=== PATIENT | female | born 1945 | race Caucasian/White ===

== ENCOUNTER → 2016-12-10 | Outpatient (CLI) | payer MEDICARE ==
[2016-12-10 15:27] LABS: Basophils # (A) 0.1 k/uL (0-0.2); Basophils % (A) 1 %; CH 29.7; CHCM 33.3; Eosinophils # (A) 0.3 k/uL (0-0.7); Eosinophils % (A) 3 %; HCT 40.3 % (34.0-46.0); HDW 2.46; HGB 13.2 gm/dL (11.4-16.0); Luc # (Auto) 0.09; Luc % (Auto) 1; Lymphocytes # (A) 2.5 k/uL (1.0-4.8); Lymphocytes % (A) 30 %; MCH 29.4 pg (25.0-35.0); MCHC 32.8 g/dL (31.0-37.0); MCV 89.7 fL (80.0-100.0); Monocytes # (A) 0.4 k/uL (0-1.0); Monocytes % (A) 4 %; Neutrophils # (A) 5.2 k/uL (1.3-7.7); Neutrophils % (A) 62 %; RDW 13.3 % (11.5-15.5); WBC 8.4 k/uL (3.8-10.6); WBC (Perox) 8.59
[2016-12-10 15:42] LABS: ALT 43 U/L (9-52); AST 26 U/L (14-36); Blood Urea Nitrogen 18 mg/dL (7-17); Non-African American GFR(MDRD) >60 (>60 ml/min/1.73 sqM)
[2016-12-10 16:46] LABS: Vitamin B12 923 pg/mL
== END | disposition home or self-care (01) ==
LOC: LABWHC1 14:56
PROVIDERS: ATTEND Psychiatry & Neurology Neurology
DX: R41.3 Other amnesia (principal)
CPT/HCPCS: 36415; 82565; 82607; 82746; 84450; 84460; 84520; 85025; 86618

== ENCOUNTER → 2017-01-04 | Outpatient (CLI) | payer MEDICARE ==
--- NOTE | 2017-01-04 16:48 | MR ---
EXAMINATION TYPE: MR brain wo/w con DATE OF EXAM: 01/04/2017 1:18 PM COMPARISON: NONE HISTORY: Memory loss CONTRAST: Performed utilizing 16 mL intravenous MultiHance gadolinium contrast. TECHNIQUE: Multiplanar, multiecho imaging on a 3.0 Meka magnet is performed through the brain. Stud y is performed within 24 hours of arrival to the hospital. The craniovertebral junction is normal. The pituitary is normal. The patient reported chronic subdu ral hematoma is not identified. Diffusion-weighted imaging is performed. No abnormal hyperintensity is present to suggest an acute i ntracranial infarct or acute ischemic change. There is confluent white matter hyperintensity compatible with microvascular ischemic change. This ex tends into the centrum semiovale bilaterally slightly greater on the right. Ventricles and sulci are appropriate for the patient age. No abnormal enhancement is evident. No temporal horn dilatation is evident. IMPRESSIONS: 1. Chronic appearing white matter ischemic type changes with atrophy.
== END | disposition home or self-care (01) ==
LOC: RADMRIMAIN 12:36
PROVIDERS: ATTEND Psychiatry & Neurology Neurology
DX: D43.2 Neoplasm of uncertain behavior of brain, unspecified (principal); R90.82 White matter disease, unspecified; I67.82 Cerebral ischemia; G31.9 Degenerative disease of nervous system, unspecified; I62.03 Nontraumatic chronic subdural hemorrhage
CPT/HCPCS: 70553; A9577

== ENCOUNTER 2017-04-26 14:29 | Inpatient (IN) | payer OTHER, MEDICARE ==
[2017-04-26 15:38] LABS: Glucose,Whole Blood 103 mg/dL (75-99)
--- NOTE | 2017-04-26 16:08 | XR ---
EXAMINATION TYPE: XR chest 2V DATE OF EXAM: 04/26/2017 COMPARISON: 10/13/2013 HISTORY: Shortness of breath TECHNIQUE: Frontal and lateral views of the chest are obtained. FINDINGS: Scattered senescent parenchymal changes noted. Hyperinflation compatible with COPD. No evidence for infiltrate. No evidence for atelectasis. Heart size is stable. Mediastinal structures are stable and grossly unremarkable. No evidence for hilar prominence. Degenerative changes dorsal spine. IMPRESSION: 1. No evidence for acute pulmonary disease.
[2017-04-26 16:14] LABS: Basophils # (A) 0.1 k/uL (0-0.2); Basophils % (A) 1 %; CHCM 32.8; Eosinophils # (A) 0.3 k/uL (0-0.7); Eosinophils % (A) 3 %; HCT 41.5 % (34.0-46.0); HDW 2.51; HGB 13.2 gm/dL (11.4-16.0); Luc # (Auto) 0.15; Luc % (Auto) 2; Lymphocytes # (A) 1.8 k/uL (1.0-4.8); Lymphocytes % (A) 23 %; MCH 29.3 pg (25.0-35.0); MCHC 31.9 g/dL (31.0-37.0); MCV 91.9 fL (80.0-100.0); Mean Platelet Volume 7.7; Monocytes # (A) 0.4 k/uL (0-1.0); Monocytes % (A) 6 %; Neutrophils # (A) 5.1 k/uL (1.3-7.7); Neutrophils % (A) 66 %; RBC 4.51 m/uL (3.80-5.40); RDW 13.4 % (11.5-15.5); WBC 7.7 k/uL (3.8-10.6); WBC (Perox) 7.55
[2017-04-26 16:27] LABS: ALT 35 U/L (9-52); AST 24 U/L (14-36); Alkaline Phosphatase 78 U/L (38-126); Anion Gap 10 mmol/L; Blood Urea Nitrogen 19 mg/dL (7-17); Calcium 9.8 mg/dL (8.4-10.2); Carbon Dioxide 26 mmol/L (22-30); Chloride 109 mmol/L (98-107); Glucose 100 mg/dL (74-99); Non-African American GFR(MDRD) >60 (>60 ml/min/1.73 sqM); Partial Thromboplastin Time 22.2 sec (22.0-30.0); Potassium 4.2 mmol/L (3.5-5.1); Prothrombin Time 10.3 sec (9.0-12.0); Sodium 145 mmol/L (137-145); Total Bilirubin 0.2 mg/dL (0.2-1.3); Total Protein 6.5 g/dL (6.3-8.2)
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
[2017-04-26 16:31] LABS: Appearance,Urine Clear (Clear); Bacteria,Urine Moderate /hpf; Bilirubin,Urine Negative (Negative); Glucose,Urine (UA) Negative (Negative); Ketones,Urine Negative (Negative); Leukocyte Esterase,Urine Large (Negative); Mucus,Urine Rare /hpf; Nitrite,Urine Negative (Negative); Particle Count 2384; Protein,Urine Negative (Negative); RBC,Urine 12 /hpf (0-5); Specific Gravity,Urine 1.015 (1.001-1.035); Squamous Epithelial Cell,Urine <1 /hpf (0-4); UA Billing (MACRO vs. MICRO) MICRO; Urobilinogen,Urine <2.0 mg/dL (<2.0); WBC,Urine 19 /hpf (0-5)
[2017-04-26 16:32] LABS: Creatine Kinase 174 U/L (30-135)
[2017-04-26 16:45] LABS: Creatine Kinase MB 1.7 ng/mL (0.0-2.4); Troponin I <0.012 ng/mL (0.000-0.034)
[2017-04-26] MEDS ORDERED: SODIUM CHLORIDE 0.9% 1,000 ML IV ONE (17:49)
[2017-04-26] MEDS ORDERED: DONEPEZIL 5 MG TAB PO SCH (21:00)
[2017-04-26] MEDS ORDERED: ASPIRIN 81 MG CHEW PO SCH (21:00)
[2017-04-26] MEDS ORDERED: ATORVASTATIN 10 MG TAB PO SCH (21:00)
[2017-04-27] MEDS ORDERED: LEVOTHYROXINE 75 MCG TAB PO SCH (06:30)
[2017-04-27 07:09] LABS: Basophils % (A) 0 %; CH 29.8; CHCM 32.4; Eosinophils # (A) 0.3 k/uL (0-0.7); Eosinophils % (A) 4 %; HCT 40.7 % (34.0-46.0); HDW 2.51; HGB 13.6 gm/dL (11.4-16.0); Luc # (Auto) 0.19; Luc % (Auto) 2; Lymphocytes # (A) 2.5 k/uL (1.0-4.8); Lymphocytes % (A) 31 %; MCH 30.9 pg (25.0-35.0); MCHC 33.4 g/dL (31.0-37.0); MCV 92.4 fL (80.0-100.0); Mean Platelet Volume 7.7; Monocytes # (A) 0.4 k/uL (0-1.0); Monocytes % (A) 5 %; Neutrophils # (A) 4.6 k/uL (1.3-7.7); Neutrophils % (A) 58 %; RDW 13.4 % (11.5-15.5); WBC (Perox) 8.15
[2017-04-27 10:09] VITALS: RESP 16
[2017-04-27 13:31] VITALS: BP 175/77; PULSE 88; TEMP 98.5
[2017-04-27] MEDS ORDERED: RX INFO: IV CONTRAST WAS GIVEN 1 EACH MISC MISCELLANE PRN (14:36)
--- NOTE | 2017-04-27 15:49 | CT ---
EXAMINATION TYPE: CT angio head neck DATE OF EXAM: 04/27/2017 3:29 PM COMPARISON: NONE HISTORY: Episode of visual disturbance and loss of consciousness CT DLP: 343.7 mGycm Automated exposure control for dose reduction was used. TECHNIQUE: Performed with IV Contrast, patient injected with 65 mL of Omnipaque 350. There are 3-D post processed images.. FINDINGS: There is arterial flow demonstrated in both vertebral arteries. There is normal branching pattern of the great vessels. Left vertebral artery is larger than the right. There is arterial flow in the common internal and ext ernal carotid arteries bilaterally. The right carotid artery is widely patent. On the left side there is mild plaque on the posterior wall of the proximal left internal carotid artery. There is lumen na rrowing of 20%. There is arterial flow in the anterior middle and posterior cerebral arteries bilaterally. There is a rterial flow in the vertebrobasilar artery system. There is no mass effect. There is no evidence of a neurysm or neovascularity. There is no evidence of stenosis in the intracranial circulation. There is normal contrast opacification of the venous sinuses. 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 THE REMAINDER OF THE EXAM IS WITHIN NORMAL LIMITS.
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
== END 2017-04-27 16:48 | disposition home or self-care (01) | DRG 880 ==
LOC: EC 14:29 → 6SEL 17:50
PROVIDERS: ADMIT Internal Medicine; ATTEND Internal Medicine
DX: F41.0 Panic disorder [episodic paroxysmal anxiety] (principal); I10 Essential (primary) hypertension; E03.9 Hypothyroidism, unspecified; I25.10 Atherosclerotic heart disease of native coronary artery without angina pectoris; H35.30 Unspecified macular degeneration; E78.5 Hyperlipidemia, unspecified; R51 Headache; R82.71 Bacteriuria; Z91.018 Allergy to other foods; Z79.82 Long term (current) use of aspirin; Z79.899 Other long term (current) drug therapy; Z87.891 Personal history of nicotine dependence
CPT/HCPCS: 36415; 70496; 70498; 71020; 80053; 81001; 82550; 82553; 84439; 84443; 84484; 85025; 85610; 85730; 93005; 96365; 99285

== ENCOUNTER → 2018-03-13 | Outpatient (CLI) | payer MEDICARE ==
[2018-03-13 11:54] LABS: HCT 42.1 % (34.0-46.0); HGB 13.6 gm/dL (11.4-16.0); MCH 28.7 pg (25.0-35.0); MCHC 32.4 g/dL (31.0-37.0); MCV 88.6 fL (80.0-100.0); Platelet Count 254 k/uL (150-450); RBC 4.75 m/uL (3.80-5.40); RDW 13.5 % (11.5-15.5); WBC 8.9 k/uL (3.8-10.6)
[2018-03-13 12:32] LABS: Anion Gap 14 mmol/L; Blood Urea Nitrogen 19 mg/dL (7-17); Carbon Dioxide 27 mmol/L (22-30); Chloride 104 mmol/L (98-107); Potassium 4.7 mmol/L (3.5-5.1); Sodium 145 mmol/L (137-145)
== END | disposition home or self-care (01) ==
LOC: LABPAT 11:08
PROVIDERS: ATTEND Internal Medicine Interventional Cardiology
DX: Z01.812 Encounter for preprocedural laboratory examination (principal); I25.10 Atherosclerotic heart disease of native coronary artery without angina pectoris
CPT/HCPCS: 36415; 80051; 82565; 84520; 85027

== ENCOUNTER → 2018-03-27 | Day surgery (SDC) | payer MEDICARE ==
[~2018-03-27] MED LIST: ALPRAZolam 0.25 MG TAB PO PRN; ALPRAZolam 0.5 MG TAB PO PRN; ASPIRIN 325 MG TAB PO STA; HEPARIN SODIUM 1,000 UN/ML (10ML VL) IV ONE; HEPARIN SODIUM 1,000 UN/ML (10ML VL) ONE; IOPAMIDOL-370 125ML BTL INJ ONE; LIDOCAINE 2% INJ 20 MG/ML (20 ML MDV) ONE; LIDOCAINE 2% INJ 20 MG/ML SQ ONE; MIDAZOLAM 2 MG/2 ML VIAL ONE; NITROGLYCERIN SL TABS 0.4 MG TAB SUBLINGUAL PRN; RX INFO: IV CONTRAST WAS GIVEN 1 EACH MISC MISCELLANE PRN; SODIUM CHLORIDE 0.9% 1,000 ML IV SCH; SODIUM CHLORIDE 0.9% 1,000 ML in EMPTY BAG 1 BAG IV ONE; VERAPAMIL 2.5 MG/ML 2 ML AMP ONE; fentaNYL (PF) 50 MCG/ML 2 ML AMP IV ONE
[2018-03-27 08:31] VITALS: RESP 18; TEMP 97.5
[2018-03-27] MEDS: VERAPAMIL SYRINGE (5 MG/10 ML) INTRAARTER ONE ×2 (09:03→09:16)
--- NOTE | 2018-03-27 10:58 | LTR ---
DATE OF SERVICE: 03/27/2017 RE: Marisa Banerjee Dear Cristian; Ms. Marisa Banerjee underwent a heart catheterization today for recurrent episodes of chest discomfort concerning for angina. The heart catheterization showed intermediate disease involving the mid LAD. Medical treatment is recommended at this point. I want to thank you for allowing me to participate in her care. Sincerely, MD MANUEL Zamarripa / OSMAR: [id number] /
--- NOTE | 2018-03-27 11:28 | CC ---
CARDIAC CATHETERIZATION REPORT DATE OF SERVICE: 03/27/2018 PERFORMING PHYSICIAN: Aldair Jett MD, Geriatric Social Work Professor. PROCEDURE PERFORMED: 1. Selective right and left coronary angiogram. 2. Left heart catheterization. INDICATION: This is a pleasant 72-year-old female patient who is known to have coronary artery disease based on heart catheterization a few years ago with intermediate disease involving the mid LAD, as well as hypertension and dyslipidemia, was experiencing chest discomfort, better with nitroglycerin. She underwent a stress test and that came into be unremarkable, but because she continues to have a chest discomfort, I recommended proceeding with a heart catheterization. APPROACH: Right radial artery. COMPLICATION: None. LEVEL OF SEDATION: Moderate with sedation length of 19 minutes. PROCEDURE DESCRIPTION: After obtaining an informed consent, the patient was brought to the Cardiac Web Content Writer. The right radial artery was cannulated using micropuncture technique and a micropuncture wire passed easily, then I placed a 6-Micronesian sheath in the right radial artery. I gave the patient 2 mg of verapamil IA and 8000 units of heparin IV. After that, I did selective right and left coronary angiogram using JR4 and JL3.5 catheters. We did left heart catheterization using JR4 catheter which flipped into the LV, then I did pull but pullback across aortic valve. The procedure was completed without any complication. SELECTIVE CORONARY ANGIOGRAM: 1. The right coronary artery is a large caliber vessel and it is a dominant vessel. The proximal RCA has mild disease only. The mid RCA has mild disease only as well and the RCA distally appeared to have mild disease only and bifurcates into PDA and PLV branches, both are angiographically normal. 2. The left main is angiographically normal, it bifurcates into the circumflex and left anterior descending artery. 3. The left circumflex is a large caliber vessel. It is a nondominant vessel. The proximal circ appeared to be angiographically normal, the mid circ has mild disease only and the circ distally is angiographically normal. 4. THE LAD: The proximal LAD appeared to be appeared to have mild disease only. It gives rise into a diagonal branch which has mild ostial disease. The mid LAD just by the bifurcation of second diagonal has intermediate lesion in the range of 50%. The LAD distally appeared to be angiographically normal. HEMODYNAMICS: The left ventricular end-diastolic pressure was 8 mmHg and no gradient was identified across the aortic valve. CONCLUSION: Intermediate disease involving the mid left anterior descending artery. POSTPROCEDURE MANAGEMENT: Medical treatment. MANUEL / SHELBIEN: [id number] /
[2018-03-27 15:03] VITALS: BP 151/72; PULSE 56
== END ==
LOC: CATHCVL 08:01
PROVIDERS: ATTEND Internal Medicine Interventional Cardiology
DX: I25.110 Atherosclerotic heart disease of native coronary artery with unstable angina pectoris (principal); E78.00 Pure hypercholesterolemia, unspecified; I10 Essential (primary) hypertension; E03.9 Hypothyroidism, unspecified; Z82.49 Family history of ischemic heart disease and other diseases of the circulatory system; Z79.82 Long term (current) use of aspirin; Z79.890 Hormone replacement therapy; Z79.899 Other long term (current) drug therapy; Z88.8 Allergy status to other drugs, medicaments and biological substances; Z87.891 Personal history of nicotine dependence
CPT/HCPCS: 93458; C1894; J2001; J3010; J1644; Q9967

== ENCOUNTER 2019-04-02 18:48 | Emergency (ER) | payer MEDICARE ==
[2019-04-02 19:01] VITALS: TEMP 97.9
--- NOTE | 2019-04-02 21:02 | US ---
EXAMINATION TYPE: US venous doppler duplex LE LT DATE OF EXAM: 04/02/2019 8:46 PM COMPARISON: NONE CLINICAL HISTORY: Pain. Left leg pain. SIDE PERFORMED: Left TECHNIQUE: The lower extremity deep venous system is examined utilizing real time linear array sonog lindsay with graded compression, doppler sonography and color-flow sonography. VESSELS IMAGED: External Iliac Vein (EIV) Common Femoral Vein Deep Femoral Vein Greater Saphenous Vein * Femoral Vein Popliteal Vein Small Saphenous Vein * Proximal Calf Veins (* superficial vessels) Left Leg: Negative for DVT No evidence of DVT left leg. IMPRESSION: Normal left leg duplex venous sonogram.
[2019-04-02 22:25] VITALS: BP 170/96; PULSE 105; RESP 18
--- NOTE | 2019-04-02 23:00 | ED ---
General Adult HPI - General Chief complaint: Extremity Injury, Lower Stated complaint: Leg Pain Time Seen by Provider: 04/02/19 19:33 Source: patient Mode of arrival: wheelchair Limitations: no limitations - History of Present Illness Initial comments: Patient 73-year-old female presents emergency Department with left lower leg pain. Patient states pain started yesterday and has been getting progressively worse. Patient states that she has been taking nothing for pain control. Patient states pain starts in the popliteal region and extends distally for about 15 cm along the gastrocnemius. patient states there is no pain at rest but it is exacerbated by movement. Patient denies any numbness tingling or muscle weakness. Patient denies coughing, hemoptysis, fever, night sweats, estrogen use, traveling for long periods of time. - Related Data Home Medications Medication Instructions Recorded Confirmed Aspirin EC [Ecotrin Low Dose] 81 mg PO HS 04/26/17 03/27/18 Atenolol [Tenormin] 25 mg PO BID 04/26/17 03/27/18 Donepezil [Aricept] 5 mg PO BID 04/26/17 03/27/18 Levothyroxine Sodium [Synthroid] 200 mcg PO QAM 04/26/17 03/27/18 Lovastatin [Mevacor] 20 mg PO HS 04/26/17 03/27/18 Naproxen 500 mg PO BID PRN 04/26/17 03/27/18 Nitroglycerin Sl Tabs [Nitrostat] 0.4 mg SUBLINGUAL Q5M PRN 04/26/17 03/27/18 Vit C/E/Zn/Coppr/Lutein/Zeaxan 1 cap PO BID 04/26/17 03/27/18 [Preservision Areds 2 Softgel] Calcium, D3,Mag 1 tab PO DAILY 03/21/18 03/27/18 Cyclobenzaprine [Flexeril] 10 mg PO HS PRN 03/21/18 03/27/18 Famotidine 40 mg PO QAM 03/21/18 03/27/18 Fexofenadine HCl [Nellie Allergy] 180 mg PO DAILY 03/21/18 03/27/18 Isosorbide Mononitrate ER [Imdur] 5 mg PO QAM 03/21/18 03/27/18 Melatonin 5 mg PO HS 03/21/18 03/27/18 Memantine [Namenda] 10 mg PO BID 03/21/18 03/27/18 Allergies Allergy/AdvReac Type Severity Reaction Status Date / Time perfume Allergy Swelling Verified 04/02/19 19:01 gluten AdvReac Abdominal Verified 04/02/19 19:01 Pain Review of Systems ROS Statement: Those systems with pertinent positive or pertinent negative responses have been documented in the HPI. ROS Other: All systems not noted in ROS Statement are negative. Past Medical History Past Medical History: Coronary Artery Disease (CAD), Chest Pain / Angina, Fibromyalgia, Hyperlipidemia, Hypertension, Memory Impairment, Thyroid Disorder Additional Past Medical History / Comment(s): CARDIOLOGY H & P BY DR. HIRSCH. Angina, RT EYE MACULAR DEGENERATION, OCCASSIONAL "HEARTBURN" History of Any Multi-Drug Resistant Organisms: None Reported Past Surgical History: Back Surgery, Heart Catheterization, Hysterectomy Additional Past Surgical History / Comment(s): thyroidectomy, OLIVERIO CATARACT Past Anesthesia/Blood Transfusion Reactions: No Reported Reaction Additional Past Anesthesia/Blood Transfusion Reaction / Comment(s): CLAUSTERPHOBIA Past Psychological History: No Psychological Hx Reported Smoking Status: Former smoker Past Alcohol Use History: Rare Past Drug Use History: None Reported - Past Family History Mother Family Medical History: Coronary Artery Disease (CAD) Additional Family Medical History / Comment(s): HEART PROBLEMS Father Family Medical History: Cancer Additional Family Medical History / Comment(s): LUNG CANCER General Exam Limitations: no limitations General appearance: alert, in no apparent distress Head exam: Present: atraumatic, normocephalic, normal inspection Eye exam: Present: normal appearance, PERRL, EOMI. Absent: scleral icterus, conjunctival injection ENT exam: Present: mucous membranes moist, TM's normal bilaterally, normal external ear exam. Absent: normal exam (Bilateral enlarged tonsils without exudates.) Neck exam: Present: normal inspection, lymphadenopathy Respiratory exam: Present: normal lung sounds bilaterally. Absent: wheezes, rales, rhonchi, stridor Cardiovascular Exam: Present: regular rate, normal rhythm, normal heart sounds Extremities exam: Present: normal inspection, full ROM Left Hip exam: Present: normal inspection, full ROM Upper Leg exam: Present: normal inspection, full ROM Knee exam: Present: normal inspection, full ROM Lower Leg exam: Present: full ROM, tenderness, Homans' sign. Absent: ecchymosis, erythema Ankle exam: Present: normal inspection (Limited with weightbearing), full ROM Foot/Toe exam: Present: normal inspection, full ROM Gait: observed and limited by pain Back exam: Present: normal inspection, full ROM Neurological exam: Present: alert, oriented X3 Psychiatric exam: Present: normal affect, normal mood Skin exam: Present: warm, normal color Course Vital Signs 04/02/19 04/02/19 18:59 22:24 Temperature 97.9 F Pulse Rate 63 105 H Respiratory 20 18 Rate Blood Pressure 119/71 170/96 O2 Sat by Pulse 96 98 Oximetry Medical Decision Making - Medical Decision Making Patient is 73-year-old female presenting to the emergency department with left leg pain. On physical examination patient had a positive Homans sign. Duplex ultrasound was ordered and returned unremarkable for DVT. Patient was advised to alternate between Tylenol and ibuprofen for pain. Patient advised to follow primary care. Patient advised to return to emergency department if symptoms worsen. Case discussed with physician. Disposition Clinical Impression: Leg strain Disposition: HOME SELF-CARE Condition: Stable Instructions (If sedation given, give patient instructions): Leg Sprain (ED) Is patient prescribed a controlled substance at d/c from ED?: No Referrals: Cristian Arvizu DO [Primary Care Provider] - 1-2 days Time of Disposition: 23:04
== END 2019-04-02 23:07 | disposition home or self-care (01) ==
LOC: EC 18:48
DX: S86.912A Strain of unspecified muscle(s) and tendon(s) at lower leg level, left leg, initial encounter (principal); I25.119 Atherosclerotic heart disease of native coronary artery with unspecified angina pectoris; E78.5 Hyperlipidemia, unspecified; I10 Essential (primary) hypertension; E07.9 Disorder of thyroid, unspecified; Z87.891 Personal history of nicotine dependence; Z79.890 Hormone replacement therapy; Z79.82 Long term (current) use of aspirin; Z79.899 Other long term (current) drug therapy; Z91.09 Other allergy status, other than to drugs and biological substances; Z91.018 Allergy to other foods; Z95.818 Presence of other cardiac implants and grafts
CPT/HCPCS: 99283

== ENCOUNTER → 2022-06-27 | Outpatient (CLI) | payer MEDICARE ==
--- NOTE | 2022-06-27 15:33 | CT ---
EXAMINATION TYPE: CT brain wo con DATE OF EXAM: 06/27/2022 COMPARISON: MRI brain 01/04/2017 INDICATION: Disorientation DLP: 995.5 mGycm, Automated exposure control for dose reduction was used. CONTRAST: None CT of the brain is performed utilizing 3 mm thick sections through the posterior fossa and 3 mm thick sections through the remaining calvarium. Study is performed within 24 hours of arrival to the hosp [facility]. No abnormal hyperdensity is present to suggest an acute intracranial hemorrhage. No mass lesion is evident. Physiologic basal ganglion calcifications in the left basal ganglia. No acute infarcts are evident. Periventricular white matter hypodensities present, likely on the basi s of microvascular ischemic change. Sub ependymal flow of CSF should be considered. Ventricles and sulci are prominent for the patient age. There is some rounding of the temporal horns of lateral ventricles. Lateral ventricles third ventricle appear prominent. Some early hydrocephalus could be considered. Findings are somewhat more prominent than 01/04/2017 comparison MRI. There is fluid within the inferior left mastoid air cells. Mastoid air cells appear underpneumatized. Air-fluid levels within the sphenoid sinus. Correlate for acute sphenoid sinusitis. IMPRESSIONS: 1. Prominent ventricles with some rounding of the temporal horns., Early hydrocephalus should be co nsidered. 2. Atrophy with periventricular white matter ischemic-type changes. Sub ependymal flow of CSF should be considered.
== END | disposition home or self-care (01) ==
LOC: RADCTMAIN 11:50
PROVIDERS: ATTEND Psychiatry & Neurology Neurology
DX: R41.0 Disorientation, unspecified (principal); G31.9 Degenerative disease of nervous system, unspecified
CPT/HCPCS: 70450

== ENCOUNTER 2022-10-29 14:23 | Inpatient (IN) | payer MEDICARE ==
--- NOTE | 2022-10-29 14:45 | ED ---
General Adult HPI - General Chief complaint: Fall Stated complaint: fall, hip pain Time Seen by Provider: 10/29/22 14:25 Source: EMS Mode of arrival: EMS Limitations: altered mental status - History of Present Illness Initial comments: Dictation was produced using [employer] dictation software. please excuse any grammatical, word or spelling errors. Chief Complaint: 77-year-old female presents emergency department for her fall left hip pain History of Present Illness: Is 77-year-old female she is a poor historian. She has history of Alzheimer's dementia. According to EMS patient fell approximately 30 minutes prior to arrival. She is complaining of left-sided hip pain. Patient does not remember how she fell. Fell was unwitnessed. She does live at home with her and son. The ROS documented in this emergency department record has been reviewed and confirmed by me. Those systems with pertinent positive or negative responses have been documented in the HPI. All other systems are other negative and/or noncontributory. PHYSICAL EXAM: General Impression: Alert and oriented x3, not in acute distress HEENT: Normocephalic atraumatic, extra-ocular movements intact, pupils equal and reactive to light bilaterally, mucous membranes moist. Cardiovascular: Heart regular rate and rhythm Chest: Able to complete full sentences, no retractions, no tachypnea Abdomen: abdomen soft, non-tender, non-distended, no organomegaly Musculoskeletal: Pulses present and equal in all extremities, no peripheral edema Motor: no focal deficits noted Left lower extremity a flexed and externally rotated elicited with manipulation at the left hip Neurological: CN II-XII grossly intact, no focal motor or sensory deficits noted Skin: Intact with no visualized rashes Psych: Normal affect and mood ED course: 77-year-old female presents emergency department for left hip pain. Vital signs upon arrival are within acceptable limits. Patient refused any pain medications at initial evaluation. Nursing notes and chart review was performed Laboratory evaluation obtained. CBC, coag panel, metabolic panel is unremark able. Computed tomography scan of the head and C-spine shows left middle ear effusion clinical exam findings to suggest mastoiditis. Rest of computed tomography scan unremarkable. Hip and pelvis x-ray shows left femoral neck fracture mild displacement. Chest x-ray shows pulmonary venous congestion. Patient be admitted to Dr. Powell of orthopedi surgery after discussion with attila hunter. Patient reevaluated at bedside at 5:30 PM found to be in stable medical condition. - Related Data Home Medications Medication Instructions Recorded Confirmed Aspirin EC [Ecotrin Low Dose] 81 mg PO HS 04/26/17 03/27/18 Donepezil [Aricept] 5 mg PO BID 04/26/17 03/27/18 Levothyroxine Sodium [Synthroid] 200 mcg PO QAM 04/26/17 03/27/18 Lovastatin [Mevacor] 20 mg PO HS 04/26/17 03/27/18 Naproxen 500 mg PO BID PRN 04/26/17 03/27/18 Nitroglycerin Sl Tabs [Nitrostat] 0.4 mg SUBLINGUAL Q5M PRN 04/26/17 03/27/18 Vit C/E/Zn/Coppr/Lutein/Zeaxan 1 cap PO BID 04/26/17 03/27/18 [Preservision Areds 2 Softgel] atenoloL [Tenormin] 25 mg PO BID 04/26/17 03/27/18 Calcium, D3,Mag 1 tab PO DAILY 03/21/18 03/27/18 Cyclobenzaprine [Flexeril] 10 mg PO HS PRN 03/21/18 03/27/18 Famotidine 40 mg PO QAM 03/21/18 03/27/18 Fexofenadine HCl [Nellie Allergy] 180 mg PO DAILY 03/21/18 03/27/18 Isosorbide Mononitrate ER [Imdur] 5 mg PO QAM 03/21/18 03/27/18 Melatonin 5 mg PO HS 03/21/18 03/27/18 Memantine [Namenda] 10 mg PO BID 03/21/18 03/27/18 Allergies Allergy/AdvReac Type Severity Reaction Status Date / Time perfume Allergy Swelling Verified 04/02/19 19:01 gluten AdvReac Abdominal Verified 04/02/19 19:01 Pain Review of Systems ROS Statement: Those systems with pertinent positive or pertinent negative responses have been documented in the HPI. ROS Other: All systems not noted in ROS Statement are negative. Past Medical History Past Medical History: Coronary Artery Disease (CAD), Chest Pain / Angina, Fibromyalgia, Hyperlipidemia, Hypertension, Memory Impairment, Thyroid Disorder Additional Past Medical History / Comment(s): CARDIOLOGY H & P BY DR. HIRSCH. Diana rocha, RT EYE MACULAR DEGENERATION, OCCASSIONAL "HEARTBURN" History of Any Multi-Drug Resistant Organisms: None Reported Past Surgical History: Back Surgery, Heart Catheterization, Hysterectomy Additional Past Surgical History / Comment(s): thyroidectomy, OLIVERIO CATARACT Past Anesthesia/Blood Transfusion Reactions: No Reported Reaction Additional Past Anesthesia/Blood Transfusion Reaction / Comment(s): CLAUSTERPHOBIA Past Psychological History: No Psychological Hx Reported Past Alcohol Use History: Rare Past Drug Use History: None Reported - Past Family History Mother Family Medical History: Coronary Artery Disease (CAD) Additional Family Medical History / Comment(s): HEART PROBLEMS Father Family Medical History: Cancer Additional Family Medical History / Comment(s): LUNG CANCER General Exam Limitations: altered mental status Course Vital Signs 10/29/22 10/29/22 10/29/22 14:25 14:59 15:00 Temperature 97.7 F Respiratory 16 Rate Blood Pressure 123/64 O2 Sat by Pulse 91 L 83 L 98 Oximetry Medical Decision Making - Lab Data Result diagrams: 10/29/22 14:50 10/29/22 14:50 Lab Results 10/29/22 10/29/22 10/29/22 Range/Units 14:50 14:50 16:40 WBC 12.7 H (3.8-10.6) k/uL RBC 4.77 (3.80-5.40) m/uL Hgb 14.2 (11.4-16.0) gm/dL Hct 42.5 (34.0-46.0) % MCV 89.1 (80.0-100.0) fL MCH 29.7 (25.0-35.0) pg MCHC 33.3 (31.0-37.0) g/dL RDW 13.6 (11.5-15.5) % Plt Count 235 (150-450) k/uL MPV 8.2 Neutrophils % 72 % Lymphocytes % 22 % Monocytes % 4 % Eosinophils % 1 % Basophils % 0 % Neutrophils # 9.1 H (1.3-7.7) k/uL Lymphocytes # 2.8 (1.0-4.8) k/uL Monocytes # 0.5 (0-1.0) k/uL Eosinophils # 0.1 (0-0.7) k/uL Basophils # 0.1 (0-0.2) k/uL PT 10.1 (9.0-12.0) sec INR 1.0 (<1.2) APTT 19.4 L (22.0-30.0) sec Sodium 138 (137-145) mmol/L Potassium 4.6 (3.5-5.1) mmol/L Chloride 107 (98-107) mmol/L Carbon Dioxide 24 (22-30) mmol/L Anion Gap 7 mmol/L BUN 19 H (7-17) mg/dL Creatinine 0.65 (0.52-1.04) mg/dL Est GFR (CKD-EPI)AfAm >90 (>60 ml/min/1.73 sqM) Est GFR (CKD-EPI)NonAf 87 (>60 ml/min/1.73 sqM) Glucose 112 H (74-99) mg/dL Calcium 8.8 (8.4-10.2) mg/dL Disposition Clinical Impression: Hip fracture Disposition: ADMITTED IP TO THIS [facility] Condition: Fair Referrals: Cristian Arvizu DO [Primary Care Provider] - 1-2 days Decision Time: 17:28
[2022-10-29 15:14] LABS: Basophils # (A) 0.1 k/uL (0-0.2); Basophils % (A) 0 %; Eosinophils # (A) 0.1 k/uL (0-0.7); Eosinophils % (A) 1 %; HCT 42.5 % (34.0-46.0); HGB 14.2 gm/dL (11.4-16.0); Lymphocytes # (A) 2.8 k/uL (1.0-4.8); Lymphocytes % (A) 22 %; MCH 29.7 pg (25.0-35.0); MCHC 33.3 g/dL (31.0-37.0); MCV 89.1 fL (80.0-100.0); Mean Platelet Volume 8.2; Monocytes # (A) 0.5 k/uL (0-1.0); Monocytes % (A) 4 %; Neutrophils # (A) 9.1 k/uL (1.3-7.7); Neutrophils % (A) 72 %; Platelet Count 235 k/uL (150-450); RBC 4.77 m/uL (3.80-5.40); RDW 13.6 % (11.5-15.5); WBC 12.7 k/uL (3.8-10.6)
[2022-10-29 15:24] LABS: African American GFR (CKD) >90 (>60 ml/min/1.73 sqM); Anion Gap 7 mmol/L; Blood Urea Nitrogen 19 mg/dL (7-17); Calcium 8.8 mg/dL (8.4-10.2); Carbon Dioxide 24 mmol/L (22-30); Chloride 107 mmol/L (98-107); Glucose 112 mg/dL (74-99); Non-African American GFR(CKD) 87 (>60 ml/min/1.73 sqM); Potassium 4.6 mmol/L (3.5-5.1); Sodium 138 mmol/L (137-145)
--- NOTE | 2022-10-29 15:44 | XR ---
EXAMINATION TYPE: XR chest 1V portable DATE OF EXAM: 10/29/2022 HISTORY: Shortness of breath. COMPARISON: 04/26/2017 TECHNIQUE: Single view of the chest is submitted. FINDINGS: Demonstrated are scattered senescent parenchymal change. There is pulmonary venous congestion with cardiomegaly. Scattered areas of linear atelectasis. Hilar and mediastinal structures are within normal limits. Degenerative changes are seen of the dorsal spine. IMPRESSION: 1. There is pulmonary venous congestion with cardiomegaly. Scattered areas of linear atelectasis.
--- NOTE | 2022-10-29 15:45 | XR ---
EXAMINATION TYPE: XR Hip LT and AP Pelvis DATE OF EXAM: 10/29/2022 CLINICAL HISTORY: pain TECHNIQUE: AP and frogleg views of the left hip are obtained. COMPARISON: None. FINDINGS: There is a mildly displaced femoral neck fracture. No additional fractures seen within the [id number]. The joint space appears within normal limits. The overlying soft tissue appears unre markable. IMPRESSION: 1. Left femoral neck fracture
--- NOTE | 2022-10-29 16:17 | CT ---
EXAMINATION TYPE: CT brain cspine wo con CT DLP: 1392 mGycm, Automated exposure control for dose reduction was used. DATE OF EXAM: 10/29/2022 4:11 PM COMPARISON: 06/27/2022 CLINICAL INDICATION:Female, 77 years old with history of fall; TECHNIQUE: Brain: Multiple axial CT images of the brain were obtained without IV contrast. Cspine: Axial CT images from the skull base to the inferior aspect of T2 we obtained without intraven ous contrast. Coronal and sagittal reformatted images were also reviewed. FINDINGS: Brain: Extra-axial spaces: No abnormal extra-axial fluid collections. Ventricular system: Dilatation in proportion to cerebral atrophy. Cerebral parenchyma: Cerebral atrophy. No acute intraparenchymal hemorrhage or mass effect. The guzman -white junction is well differentiated. Scattered hypoattenuating areas are seen within the white mat ter. Cerebellum: Unremarkable. Mass effect: No evidence of midline shift. Intracranial vasculature: Atherosclerotic calcifications of the intracranial vessels. Soft tissues: Normal. Calvarium/osseous structures: No depressed skull fracture. Paranasal sinuses and mastoid air cells: The left middle ear and mastoid air cells are opacified. Visualized orbits: Bilateral aphakia Cervical spine: Fracture: None. Osseous structures: Multilevel degenerative disc disease changes with endplate spurring and disc oste ophyte complex's. Vertebral alignment: Within normal limits. Spinal canal/Neural Foramina: No evidence of significant spinal canal narrowing. No evidence for sign ificant neural foraminal stenosis. Neck soft tissues: Prevertebral soft tissues are within normal limits. Other: The airway is patent. The lung apices are clear. IMPRESSION: 1. No acute intracranial process. 2. Left middle ear effusion and mastoid air cell effusion slightly increased from 06/27/2022. Correlat e for otomastoiditis. 3. No evidence of cervical spine fracture. 4. Mild multilevel degenerative disc disease.
[2022-10-29 17:17] LABS: Prothrombin Time 10.1 sec (9.0-12.0)
[2022-10-29 17:24] LABS: Partial Thromboplastin Time 19.4 sec (22.0-30.0)
[2022-10-29] MEDS ORDERED: NALOXONE 0.4 MG/ML 1 ML VIAL IV PRN (17:28)
[2022-10-29] MEDS: SODIUM CHLORIDE 0.9% 1,000 ML IV SCH (18:32)
--- NOTE | 2022-10-29 20:45 | XR ---
EXAMINATION TYPE: XR femur LT DATE OF EXAM: 10/29/2022 COMPARISON: NONE HISTORY: Pain TECHNIQUE: 4 views FINDINGS: There is an acute impacted subcapital fracture of the left femur. No dislocation. The knee joint is intact. The joint spaces are fairly normal. IMPRESSION: Acute impacted subcapital fracture left femur.
[2022-10-29] MEDS ORDERED: HYDROmorphone 0.5 MG/0.5 ML SYRINGE IVP PRN (21:46)
[2022-10-29] MEDS ORDERED: traMADol 50 MG TAB PO PRN (21:46)
[2022-10-29] MEDS: HYDROcodone/APAP 5-325MG 1 EACH TAB PO PRN (22:49)
[2022-10-29] MEDS ORDERED: NAPROXEN 250 MG TAB PO PRN (23:00)
[2022-10-30] MEDS: SODIUM CHLORIDE 0.9% 1,000 ML IV SCH ×3 (02:16→16:41)
[2022-10-30] MEDS: LEVOTHYROXINE 100 MCG TAB PO SCH (06:20)
--- NOTE | 2022-10-30 07:44 | P.HPOR ---
History of Present Illness H&P Date: 10/30/22 Chief Complaint: Left hip pain Pt s/e. She is 77 yo female AOX1 with c/o fall from standing. She has Left hip pain. She was brought by her to ED for eval. He is reachable by phone. No other injuries. She does not c/o pain in her UE or LE other than hip. Denies any JORGENSEN. Cannot speak on the fall. Review of Systems All systems: negative Past Medical History Past Medical History: Coronary Artery Disease (CAD), Chest Pain / Angina, Fibromyalgia, Hyperlipidemia, Hypertension, Memory Impairment, Thyroid Disorder Additional Past Medical History / Comment(s): CARDIOLOGY H & P BY DR. HIRSCH. Angina, RT EYE MACULAR DEGENERATION, OCCASSIONAL "HEARTBURN" History of Any Multi-Drug Resistant Organisms: None Reported Past Surgical History: Back Surgery, Heart Catheterization, Hysterectomy Additional Past Surgical History / Comment(s): thyroidectomy, OLIVERIO CATARACT Past Anesthesia/Blood Transfusion Reactions: No Reported Reaction Additional Past Anesthesia/Blood Transfusion Reaction / Comment(s): CLAUSTERPHOBIA Past Psychological History: No Psychological Hx Reported Additional Psychological History / Comment(s): MEMORY LOSS Smoking Status: Former smoker Past Alcohol Use History: Rare Additional Past Alcohol Use History / Comment(s): STARTED SMOKING AT AGE 20 SMOKED 1 PPD-QUIT 2001 Past Drug Use History: None Reported - Past Family History Mother Family Medical History: Coronary Artery Disease (CAD) Additional Family Medical History / Comment(s): HEART PROBLEMS Father Family Medical History: Cancer Additional Family Medical History / Comment(s): LUNG CANCER Medications and Allergies Home Medications Medication Instructions Recorded Confirmed Type Aspirin EC [Ecotrin Low Dose] 81 mg PO DAILY 04/26/17 10/29/22 History Naproxen 500 mg PO BID PRN 04/26/17 10/29/22 History Nitroglycerin Sl Tabs [Nitrostat] 0.4 mg SL Q5M PRN 04/26/17 10/29/22 History Vit C/E/Zn/Coppr/Lutein/Zeaxan 1 cap PO BID 04/26/17 10/29/22 History [Preservision Areds 2 Softgel] atenoloL [Tenormin] 25 mg PO DAILY 04/26/17 10/29/22 History Famotidine 40 mg PO DAILY 03/21/18 10/29/22 History Fexofenadine HCl [Nellie Allergy] 180 mg PO DAILY 03/21/18 10/29/22 History Memantine [Namenda] 10 mg PO BID 03/21/18 10/29/22 History Calcium Carb/Magnesium Hydrox 1 - 2 tab PO DAILY PRN 10/29/22 10/29/22 History [Rolaids Ultra 1000-200 mg Chew] Calcium Citrate/Vitamin D3 1 tab PO DAILY 10/29/22 10/29/22 History [Citracal + D Maximum Caplet] Donepezil [Aricept] 10 mg PO DAILY 10/29/22 10/29/22 History Isosorbide Mononitrate ER [Imdur] 15 mg PO DAILY 10/29/22 10/29/22 History Levothyroxine Sodium [Synthroid] 200 mcg PO DAILY 10/29/22 10/29/22 History Magnesium Oxide [Magnesium] 500 mg PO DAILY 10/29/22 10/29/22 History Rosuvastatin [Crestor] 10 mg PO DAILY 10/29/22 10/29/22 History Allergies Allergy/AdvReac Type Severity Reaction Status Date / Time perfume Allergy Anaphylaxis Verified 10/29/22 17:53 gluten AdvReac Abdominal Verified 10/29/22 17:53 Pain Physical Examination Osteopathic Statement: *. No significant issues noted on an osteopathic structural exam other than those noted in the History and Physical/Consult. Physical Exam: -Patient is alert and oriented 1 appears well-nourished well-hydrated is in no acute distress. They do not appear septic. -There is TTP left hip -Upper extremities show [5] out of 5 strength in all major muscle groups. [##EXCEPT] -Lower extremities with [5] out of 5 strength in all major muscle groups left l eg and hip secondary to fracture good dorsal flexion plantarflexion -There is [FROM] that is [painless] of the b/l UE and LE in all major joints. pain with logroll left hip -They are intact to light touch sensation in C5 to T1 and L2 to S1 nerve distribution. -DTR [2]/4 all upper and lower extremities -Patient has palpable distal pulses all 4 ext -Compartments are soft and compressible. -Patient shows a negative Ortiz's [-Neg Hoffmans b/l] [-Neg Clonus b/l] [-Neg babinski b/l] Cranial nerves II through XII are grossly intact. Results x-rays of the hip and pelvis demonstrate a left femoral neck fracture subcapital complete displaced. Pelvis is congruent without fracture. - Labs Labs: Abnormal Lab Results - Last 24 Hours (Table) 10/29/22 10/29/22 10/29/22 Range/Units 14:50 14:50 16:40 WBC 12.7 H (3.8-10.6) k/uL Neutrophils # 9.1 H (1.3-7.7) k/uL APTT 19.4 L (22.0-30.0) sec BUN 19 H (7-17) mg/dL Glucose 112 H (74-99) mg/dL H & H 10/29/22 Range/Units 14:50 Hgb 14.2 (11.4-16.0) gm/dL Hct 42.5 (34.0-46.0) % Coagulation 10/29/22 Range/Units 16:40 INR 1.0 (<1.2) Result Diagrams: 10/29/22 14:50 10/29/22 14:50 Assessment and Plan Assessment: 77-year-old female fall from standing left femoral neck fracture baseline dementia Plan: Orthopedic Surgery Risk Review Marisa is a 77-year-old female presenting for evaluation of sudden onset left hip pain, inability to ambulate after . From standing. It was my pleasure to have seen and examined [patient]. In our visit today we have had a chance to go over subjective complaints, physical examination findings and treatments including the natural course his tory without intervention and various interventional options. her imaging demonstrates left femoral neck fracture completely displaced. On physical exam, Marisademonstrates pain with motion of left lower extremity, which is NV intact at this time. I have explained to the patient that this fracture needs stabilization. Based on the patients imaging, physical exam, and the rapid progression and disabling nature of her symptoms, at this time I recommend surgery in the form or a: left hip hemiarthroplasty I discussed the risk and benefits of this procedure at length with the patient's is use her DP over. Questions were invited and answered, and the patient wishes to proceed as outlined below. Currently, I am recommendin. left hip hemiarthroplasty 2. Review of surgical risks and benefits as well as an educational packet on the proposed surgical procedure. Risks: All surgical procedures come with inherent risks, including those related to positioning, anesthesia, intraoperative findings, and postoperative complications. It is important to understand that surgery does not come with any guarantee of a successful outcome as complications and adverse events are always possible. The patient was given a handout discussing the surgical procedure and risks associated with the intervention, both of which were discussed with the patient. These risks include but are not limited to the following: - Experiencing same, different or even worse symptoms compared to before surgery. - Requiring further surgery or other forms of treatment presently or at some time in the future . - On an extreme but fortunately relatively rare basis severe complication such as blindness, stroke, heart attack, temporary and/or permanent nerve injury, paralysis, coma, or may occur, sometimes without known explanation. - Surgical complications may include but are not limited to risk of infection, fluid accumulation in the surgical dissection site, including a seroma or hematoma, that requires additional surgery, wound drainage, bleeding, new numbness or weakness, vision changes/loss, spinal fluid leakage, non-healing and/or infected incision, headaches, difficulty or inability to swallow, hoarseness, hemopneumothorax, pneumothorax, injury to nerves, spinal cord, blood vessels, lymphatics or other vital organs (i.e., bowel injury, injury to the great vessels); heterotopic bone formation; complications related to the hardware such as screws, rods, including misplaced hardware, device failure, hardware fracture/breakage, or hardware loosening; retained surgical instrumentations or devices and the need for further surgery. - Medical risks of the planned surgery include but are not limited to generalized Infections to the whole body or local areas outside of the surgical site (sepsis), heart attack, bleeding, anaphylaxis, meningitis, seizure, epilepsy, hearing loss, burn pang, laceration of the head or other areas of the body, bruising, hypersensitivity of the skin, bladder over distension; allergic reaction; shoulder injury related to positioning; fat, blood and air clots to other areas of the body like heart, lungs, brain; failure of internal organs such as lungs, kidneys, liver and excessive bleeding. If blood transfusions are necessary, note that transfusions may cause intolerance reactions such as anaphylaxis or other complex reactions. Despite best efforts, the results of surgery might not heal in terms of bone, soft tissues such as skin, fascia, ligaments, and joints. [facility] has multiple operating rooms with single and overlapping rooms running daily. They currently function under the required guidelines as produced by the [facility] Finance Committee with regards to the overlapping rooms and will continue to comply with changes to this policy as they occur. The requirements include and are complied with as follows: (1) the critical portions of the overlapping rooms will not occur at the same time, (2) the attending physician will be physically present during the critical portions of the procedure and immediately available during the entire case, and (3) a back-up attending is designated should the primary attending not be immediately available. The patient has had a chance to review all the listed information, has been given print outs detailing this information, and has had all his/her questions answered to their satisfaction. It was my pleasure to have seen and examined Marisa. In our visit today we have had a chance to go over my understanding of our patient's current condition, the natural course history without intervention and various interventional options. Questions were invited and answered, and the patient wishes to proceed as outlined above. I have seen and examined the patient for 25 minutes and we have spent more than 50% of the time in repeat and detailed counseling about the patient's condition, its natural course history with out and as much as can be predicted with surgery and re-review of various surgical treatment options. In conclusion, Marisa's requested we proceed with the above suggested surgery and are willing to accept risks and limitations of the suggested surgery as nature of the disease process and our best attempts at treatment for the condition. Thank you again for allowing us to be part of your patient's care. Please don't hesitate to contact me if you have any further questions. Signed and authenticated by: Mark Powell DO [facility] [place] [address], [address] [address]
[2022-10-30] MEDS: FAMOTIDINE 20 MG TAB PO SCH (08:59)
[2022-10-30] MEDS: ATORVASTATIN 20 MG TAB PO SCH (08:59)
[2022-10-30] MEDS: DONEPEZIL 10 MG TAB PO SCH (08:59)
[2022-10-30] MEDS: MAGNESIUM OXIDE 400 MG TAB PO SCH (09:00)
[2022-10-30] MEDS: ISOSORBIDE MONONITRATE ER 30 MG TAB.ER.24H PO SCH (09:00)
[2022-10-30] MEDS: MEMANTINE 10 MG TAB PO SCH ×2 (09:00→22:00)
[2022-10-30] MEDS: atenoloL 25 MG TAB PO SCH (09:03)
[2022-10-30] MEDS ORDERED: IV FLUID CONTINUATION 1,000 ML IV ONE (12:52)
[2022-10-30] MEDS ORDERED: ONDANSETRON 4 MG/2 ML VIAL ONE (13:02)
[2022-10-30 13:08] LABS: Glucose,Whole Blood 120 mg/dL (70-110)
[2022-10-30] MEDS ORDERED: DEXAMETHASONE SOD PHOSPHATE 4 MG/ML 1 ML VIAL IVP ONE (13:10)
[2022-10-30] MEDS ORDERED: ONDANSETRON 4 MG/2 ML VIAL IVP ONE (13:10)
[2022-10-30] MEDS ORDERED: TRANEXAMIC ACID 1,000 MG in SODIUM CHLORIDE 0.9% 100 ML IVPB ONE ×2 (13:32→13:35)
[2022-10-30] MEDS ORDERED: TRANEXAMIC ACID IN NACL,ISO-OS 1,000 MG/100 ML BAG ONE (13:43)
[2022-10-30] MEDS ORDERED: SODIUM CHLORIDE 0.9% 100 ML BAG ONE (13:43)
[2022-10-30] MEDS ORDERED: ceFAZolin 1,000 MG VIAL ONE (13:43)
[2022-10-30] MEDS ORDERED: KETAMINE 10 MG/ML 20 ML VIAL ONE (13:43)
[2022-10-30] MEDS ORDERED: ePHEDrine 50 MG/ML 1 ML VIAL ONE (13:43)
[2022-10-30] MEDS ORDERED: PROPOFOL 10 MG/ML 20 ML VIAL IV ONE (13:43)
[2022-10-30] MEDS ORDERED: IPRATROPIUM-ALBUTEROL 3 ML NEB INHALATION PRN (14:13)
--- NOTE | 2022-10-30 14:19 | P.CONS ---
History of Present Illness - Reason for Consult Consult date: 10/30/22 Medical management hypertension, hypothyroidism Requesting physician: Mark Powell - History of Present Illness (77-year-old female with past medical history of Alzheimer's dementia, CAD , hypertension, hyperlipidemia, hypothyroidism, former nicotine dependence, fibromyalgia and multiple other medical issues admitted with left femoral neck fracture status post fall. reported she fell while transferring, landing on her left hip. No head trauma, no syncope. CT reported no acute int racranial process, no evidence of C-spine fracture, mild multilevel degenerative disc disease. Denies chest pain, palpitations or shortness of breath. EKG reporting normal sinus rhythm. Radiology studies reported Left femoral neck fracture subcapital complete displaced, pelvis congruent without fracture as per orthopedic surgery review. Afebrile, WBC 12.7, hemoglobin 14.2, platelets 235, INR 1, BUN 19, creatinine 0.65. Scheduled for surgical repair today. Pain controlled at rest. Review of Systems Review systems unable to perform at this time, as patient is alert to person only, drowsy -pain medication recently administered. Past Medical History Past Medical History: Coronary Artery Disease (CAD), Chest Pain / Angina, Fibromyalgia, Hyperlipidemia, Hypertension, Memory Impairment, Thyroid Disorder Additional Past Medical History / Comment(s): CARDIOLOGY H & P BY DR. HIRSCH. Angina, RT EYE MACULAR DEGENERATION, OCCASSIONAL "HEARTBURN" History of Any Multi-Drug Resistant Organisms: None Reported Past Surgical History: Back Surgery, Heart Catheterization, Hysterectomy Additional Past Surgical History / Comment(s): thyroidectomy, OLIVERIO CATARACT Past Anesthesia/Blood Transfusion Reactions: No Reported Reaction Additional Past Anesthesia/Blood Transfusion Reaction / Comm: CLAUSTERPHOBIA Past Psychological History: No Psychological Hx Reported Additional Psychological History / Comment(s): MEMORY LOSS Smoking Status: Former smoker Past Alcohol Use History: Rare Additional Past Alcohol Use History / Comment(s): STARTED SMOKING AT AGE 20 SMOKED 1 PPD-QUIT 2001 Past Drug Use History: None Reported - Past Family History Mother Family Medical History: Coronary Artery Disease (CAD) Additional Family Medical History / Comment(s): HEART PROBLEMS Father Family Medical History: Cancer Additional Family Medical History / Comment(s): LUNG CANCER Medications and Allergies Home Medications Medication Instructions Recorded Confirmed Type Aspirin EC [Ecotrin Low Dose] 81 mg PO DAILY 04/26/17 10/29/22 History Naproxen 500 mg PO BID PRN 04/26/17 10/29/22 History Nitroglycerin Sl Tabs [Nitrostat] 0.4 mg SL Q5M PRN 04/26/17 10/29/22 History Vit C/E/Zn/Coppr/Lutein/Zeaxan 1 cap PO BID 04/26/17 10/29/22 History [Preservision Areds 2 Softgel] atenoloL [Tenormin] 25 mg PO DAILY 04/26/17 10/29/22 History Famotidine 40 mg PO DAILY 03/21/18 10/29/22 History Fexofenadine HCl [Nellie Allergy] 180 mg PO DAILY 03/21/18 10/29/22 History Memantine [Namenda] 10 mg PO BID 03/21/18 10/29/22 History Calcium Carb/Magnesium Hydrox 1 - 2 tab PO DAILY PRN 10/29/22 10/29/22 History [Rolaids Ultra 1000-200 mg Chew] Calcium Citrate/Vitamin D3 1 tab PO DAILY 10/29/22 10/29/22 History [Citracal + D Maximum Caplet] Donepezil [Aricept] 10 mg PO DAILY 10/29/22 10/29/22 History Isosorbide Mononitrate ER [Imdur] 15 mg PO DAILY 10/29/22 10/29/22 History Levothyroxine Sodium [Synthroid] 200 mcg PO DAILY 10/29/22 10/29/22 History Magnesium Oxide [Magnesium] 500 mg PO DAILY 10/29/22 10/29/22 History Rosuvastatin [Crestor] 10 mg PO DAILY 10/29/22 10/29/22 History Allergies Allergy/AdvReac Type Severity Reaction Status Date / Time perfume Allergy Anaphylaxis Verified 10/30/22 12:53 gluten AdvReac Abdominal Verified 10/30/22 12:53 Pain Physical Exam Vitals: Vital Signs Temp Pulse Pulse Resp BP BP Pulse Ox 10/30/22 07:39 98.0 F 76 17 130/73 10/30/22 02:00 97.3 F L 84 17 135/80 97 10/29/22 20:00 97.3 F L 78 19 152/94 95 10/29/22 18:33 72 16 136/71 96 10/29/22 15:00 98 12/05/22 14:59 83 L 10/29/22 14:25 97.7 F 16 123/64 91 L Intake and Output 10/29/22 10/30/22 10/30/22 22:59 06:59 14:59 Output Total 1100 Balance -1100 Output: Urine 1100 Other: Voiding Method Indwelling Catheter Indwelling Catheter Weight 81.647 kg PHYSICAL EXAM: VITAL SIGNS: [As above] GENERAL: Alert and oriented 1 ,Sitting up in bed, pleasantly confused,drowsy HEENT: Conjunctivae normal. eyes normal. NECK: Supple, No JVD. No thyroid enlargement. No LNs CARDIOVASCULAR: S1, S2 regular.. No murmur RESPIRATION: Breath sounds diminished in the bases. No rhonchi or crackles. No bronchial breathing. ABDOMEN: Soft, nontender . No guarding. no masses palpable. No ascites, No hepatosplenomegaly.Bowel sounds heard. LEGS: Left lower extremity externally rotated, mild edema NERVOUS SYSTEM: Limited Exam: Cranial N 2-12 grossly normal. Skin: Warm and dry ,no rash Results CBC & Chem 7: 10/29/22 14:50 10/29/22 14:50 Labs: Abnormal Lab Results - Last 24 Hours (Table) 10/29/22 10/29/22 10/29/22 Range/Units 14:50 14:50 16:40 WBC 12.7 H (3.8-10.6) k/uL Neutrophils # 9.1 H (1.3-7.7) k/uL APTT 19.4 L (22.0-30.0) sec BUN 19 H (7-17) mg/dL Glucose 112 H (74-99) mg/dL Assessment and Plan Assessment: Left hip fracture status post fall Atelectasis Acute hypoxic respiratory failure secondary to the above Prior nicotine dependence CAD Hypertension Dyslipidemia Macular degeneration Hypothyroidism Plan: Continue on current medication regime ,monitoring and symptomatic treatment. Aggressive pulmonary toileting with incentive spirometer ordered. PPI ordered for GI prophylaxis. Home meds have been reviewed and resumed accord ingly. Patient does present with significant risks related to multiple comorbidities, has been medically cleared by PCP for surgery. Thank you for the consult. The impression and plan of care has been dictated as directed. : I performed a history and examination of this patient, discussed the same with the dictator. I agree with the dictator's note ,documented as a scribe. Any additional findings or plans will be noted.
[2022-10-30] MEDS ORDERED: LACTATED RINGERS 1,000 ML IV ONE ×2 (14:42→15:00)
--- NOTE | 2022-10-30 15:40 | P.OP ---
Date of Procedure: 10/30/22 Preoperative Diagnosis: 1. Left femoral neck fracture, complete, displaced 2. s/p ffs 3. Alzheimer's dementia Postoperative Diagnosis: 1. Left femoral neck fracture, complete, displaced 2. s/p ffs 3. Alzheimer's dementia Procedure(s) Performed: 1. Lt hip hemiarthroplasty (78199) Implants: [employer] Polar Stem Femur size 5 collar, standard neck 47 BP head, 0 head Anesthesia: GETA Surgeon: Mark Powell Laboratory Cureman #1: Jaswant Cobos (was present and assisted with all aspects of the case from positioning to closure) Estimated Blood Loss (ml): 100 IV fluids (ml): 500 Urine output (ml): 200 Pathology: none sent Condition: stable Disposition: PACU Indications for Procedure: Marisa is a 77-year-old female presenting for evaluation of sudden onset left hip pain, inability to ambulate after . From standing. It was my pleasure to have seen and examined [patient]. In our visit today we have had a chance to go over subjective complaints, physical examination findings and treatments including the natural course history without intervention and various interventional options. her imaging demonstrates left femoral neck fracture completely displaced. On physical exam, Marisademonstrates pain with motion of left lower extremity, which is NV intact at this time. I have explained to the patient that this fracture needs stabilization. Based on the patients imaging, physical exam, and the rapid progression and disabling nature of her symptoms, at this time I recommend surgery in the form or a: left hip hemiarthroplasty I discussed the risk and benefits of this procedure at length with the patient's is use her DP over. Questions were invited and answered, and the patient wishes to proceed as outlined below. Currently, I am recommendin. left hip hemiarthroplasty Description of Procedure: The patient was seen and examined in the preoperative area. All preoperative protocols were followed. Informed consent was obtained risks and benefits of the procedure were discussed at length. Risks including bleeding infection damage to the surrounding tissue and risk of reoperation were discussed with the patient. Risk of anesthesia up to and including was a discussed with the patient. These are outlined in the risk reviewed. They were willing to accept these risks and all of the risks of surgery. The patient was given a weight- based dose of antibiotics in the form of 2 g Ancef. The patient was seen and evaluated by the anesthesia team who deemed them fit for surgery. The site was marked, the patient was willing to proceed with the procedure. The patient was transferred to the operative suite by the Department of osei diamond. There were then drifted off to sleep by the department of anesthesia and spinal with sedation anesthesia was used. Once adequate anesthesia had been obtained the patient was carefully transferred to the operative bed. All bony prominences were padded accordingly. SCDs were placed on the nonoperative lower extremities. Arms were well padded. patient was placed lateral decubitus on a pegboard table secured to the table to safety strap. Preoperative briefing was done with the operative team and everyone was ready for the procedure to start. The patients Left lower extremity was then prepped and draped in the normal sterile fashion. Timeout was then performed and all parties in agreement with the procedure to be performed. skin incision was then made for standard posterior approach to the left hip dissection taken down to the tensor fascia was identified which was split in line with its fibers. Charnley retractor was placed. Then identified short external rotators were removed and taken down the piriformis was tagged and taken down. We then performed an L cut in the capsule to expose the femoral neck and the fracture. Clinical cut was made in the femoral neck using a saw. The corkscrews and placed in the femoral head was removed. It was sized and placed a 47 trial in the acetabulum and had good fit. Then clean the acetabulum irrigated and removed any other bone fragments from the area. With internal rotation of the femur box osteotome was used to access the femoral canal followed by canal finder. We then sequentially broached and lateralized until a 5 stem was achieved and was stable and trialed this with a standard neck and 0 head there was good fit stable range of motion and equal leg lengths. The hip was then atraumatically dislocated the trials were removed we copiously irrigated wound with normal sterile saline and Aricept. The final implants were selected the femoral stem was impacted into position and was stable with an cleaned the trunnion placed the bipolar head and impacted into place and it was stable. We then relocated the hip taken through a range of motion and there was stable in all range of motion. Leg lengths are equal. The cup was irrigated wound once again posterior capsule closure was performed piriformis was attached to the posterior piriform Through the bone with Ethibond stitch was then Ethibond sutures oversewn to The Posterior External Rotators. We Then Closed the Tensor Fascia with #1 Vicryl in Running Fashion. 0 Vicryl Was Placed in the Deep Subcu Tissue 2-0 Vicryl Placed the Superficial Subcu Tissue 3-0 Monocryl Strata Fix Was Placed in the Subcuticular Tissue the Wound Was Then Cleaned with Alcohol and Dried and Mesh Tape with Glue Was Placed over It Is Allowed to Dry and Then It Was Covered with an Operative Foam Dressing. The Patient Was Placed in an Abduction Pillow. The patient was then transferred back to their hospital bed. There were awakened by department of anesthesia having tolerated the procedure very well with no complications. The patient was then transported to the postoperative care unit in stable condition.
[2022-10-30] MEDS ORDERED: MAGNESIUM HYDROXIDE 2,400 MG/10 ML CUP PO PRN (15:47)
[2022-10-30] MEDS ORDERED: ONDANSETRON 4 MG/2 ML VIAL IVP PRN (15:47)
--- NOTE | 2022-10-30 16:12 | XR ---
EXAMINATION TYPE: XR Hip Limited LT DATE OF EXAM: 10/30/2022 4:04 PM INDICATION: Patient age:Female; 77 years old; Reason for study: post-op; H. COMPARISON: Left femur 10/29/2022. TECHNIQUE: The left hip was examined in frontal projection. FINDINGS: Postsurgical changes from left total hip arthroplasty for previously seen proximal left fem ur fracture. Hardware appears intact and vertebral alignment. No fracture identified. There is associ ated soft tissue edema and gas. IMPRESSION: Postsurgical changes from left total hip arthroplasty. Hardware appears intact with appropriate align ment.
[2022-10-30] MEDS: IPRATROPIUM-ALBUTEROL 3 ML NEB INHALATION SCH ×2 (16:20→20:50)
[2022-10-30] MEDS: PANTOPRAZOLE 40 MG/10 ML VIAL IVP SCH (16:27)
[2022-10-30] MEDS: HYDROcodone/APAP 5-325MG 1 EACH TAB PO PRN (21:59)
[2022-10-30] MEDS: SENNOSIDES-DOCUSATE SODIUM 1 EACH TAB PO SCH (22:00)
[2022-10-31] MEDS: LEVOTHYROXINE 100 MCG TAB PO SCH (06:28)
--- NOTE | 2022-10-31 08:16 | P.PN ---
Subjective Progress Note Date: 10/31/22 Principal diagnosis: Fall from standing with trauma Left hip pain Patient seen and examined at bedside. Patient is currently resting in bed, A- frame pillow is present to maintain hip precautions. Surgical dressing is clean dry and intact to the right hip. Patient is able to perform ankle pumps without difficulty. Encouraged use of incentive spirometer at bedside. She does have history of dementia, and is unable to answer questions at times. Patient has remained afebrile, no complaints of nausea/vomiting, or chest pain. Objective - Vital Signs Vital signs: Vital Signs Temp 99.0 F 10/31/22 07:30 Pulse 75 10/31/22 07:30 Resp 13 10/31/22 07:30 BP 139/76 10/31/22 07:30 Pulse Ox 91 L 10/31/22 07:30 FiO2 Intake & Output 10/30/22 10/31/22 10/31/22 18:59 06:59 18:59 Intake Total 1500 Output Total 1050 750 Balance 450 -750 Intake: IV 1500 Output: Urine 950 750 Estimated Blood Loss 100 Other: Voiding Method Indwelling Catheter Indwelling Catheter - Exam Physical Examination General: The patient is awake and alert, in no acute distress Skin: Skin is warm and dry with no obvious rashes or lesions. Hairy patches absent, no dorsal skin dimples, no cafe au lait spots. Surgical incision to right hip is CDI, no shadowing noted. Eye: Pupils are equal, round and reactive to light, extra-ocular movements are intact; there is normal conjunctiva bilaterally. Neck: The neck is supple, there is no tenderness and ROM intact. Cardiovascular: There is a regular rate and rhythm. No murmur, rub or gallop is appreciated. Respiratory: Lungs are clear to auscultation, respirations are non-labored, breath sounds are equal. Gastrointestinal: Soft, non-distended, non-tender abdomen. Musculoskeletal: ROM limited secondary to pain and stiffness from surgical procedure. Muscle strength in all major muscle groups of bilateral upper extremities 4/5, bilateral lower extremities 4/5. Neurological: CN 2-12 intact. There are no obvious motor or sensory deficits. Movement and coordination equal and intact. Sensory exam to light touch intact C5-T1 and intact from L2-S1. Reflexes 2/4 in bilateral upper and lower extremities. Negative Hoffmans, babinski, and clonus signs. Psychiatric: Cooperative, appropriate mood & affect, normal judgment. - Labs CBC & Chem 7: 10/29/22 14:50 10/29/22 14:50 Labs: Abnormal Lab Results - Last 24 Hours (Table) 10/30/22 Range/Units 13:05 POC Glucose (mg/dL) 120 H (70-110) mg/dL Assessment and Plan Assessment: Left femoral neck fracture subcapital complete displaced Post Op Day 1: Left Total Hip Arthroplasty Plan: -Appreciate surgical product sales consultant and team management. -Activity: Ambulate QID, OOB all meals, up and about, limit lifting bending twisting to less than 5 lbs. Use walker or cane if needed for stability. -Daily PT/OT, increase ambulation strength and balance. -Pain control: Adequate at this time -Meds: reviewed -GI ppx: senna, Miralax -DC tyler when up and about, bedside commode if needed -DVT PPX: Lovenox -Hygiene: Shower today. Maintain dressing clean and dry. -Encourage IS 10x/hr -Dispo: Anticipate discharge home with homecare *I reviewed and discussed this case with my attending Dr. Powell, whom has reviewed this chart and films and is in agreement with assessment and plan of care as outlined above. I have personally seen and examined the patient, performed the documentation and the assessment and plan as written. Number of minutes spent on the visit: 15m.
[2022-10-31] MEDS: ENOXAPARIN 40 MG/0.4 ML SYRINGE SQ SCH (08:27)
[2022-10-31] MEDS: atenoloL 25 MG TAB PO SCH (08:28)
[2022-10-31] MEDS: MAGNESIUM OXIDE 400 MG TAB PO SCH (08:28)
[2022-10-31] MEDS: FAMOTIDINE 20 MG TAB PO SCH (08:28)
[2022-10-31] MEDS: ISOSORBIDE MONONITRATE ER 30 MG TAB.ER.24H PO SCH (08:28)
[2022-10-31] MEDS: ATORVASTATIN 20 MG TAB PO SCH (08:28)
[2022-10-31] MEDS: DONEPEZIL 10 MG TAB PO SCH (08:28)
[2022-10-31] MEDS: ASPIRIN 81 MG PO SCH (08:28)
[2022-10-31] MEDS: MEMANTINE 10 MG TAB PO SCH ×2 (08:28→21:00)
[2022-10-31] MEDS: IPRATROPIUM-ALBUTEROL 3 ML NEB INHALATION SCH ×4 (10:02→19:39)
[2022-10-31 10:22] LABS: Basophils # (A) 0.04 X 10*3/uL (0.00-0.10); Basophils % (A) 0.3 %; Eosinophils # (A) 0.01 X 10*3/uL (0.04-0.35); Eosinophils % (A) 0.1 %; HCT 32.7 % (37.2-46.3); HGB 11.1 g/dL (12.0-15.0); Immature Grans, Automated 0.7 %; Lymphocytes # (A) 1.98 X 10*3/uL (0.90-5.00); Lymphocytes % (A) 14.1 %; MCH 30.3 pg (27.0-32.0); MCHC 33.9 g/dL (32.0-37.0); MCV 89.3 fL (80.0-97.0); Mean Platelet Volume 10.3 fL (9.5-12.2); Monocytes # (A) 1.29 X 10*3/uL (0.20-1.00); Monocytes % (A) 9.2 %; NRBC Per 100 WBC 0 /100 WBCS (0.0-0.0); Neutrophils # (A) 10.64 X 10*3/uL (1.80-7.70); Neutrophils % (A) 75.6 %; Platelet Count 206 X 10*3/uL (140-440); RBC 3.66 X 10*6/uL (4.10-5.20); RDW 13.3 % (11.5-14.5); WBC 14.06 X 10*3/uL (4.50-10.00)
[2022-10-31 10:35] LABS: African American GFR (CKD) 83.2 (60.0-200.0); Anion Gap 10.8 mmol/L (10.00-18.00); BUN/Creat Ratio 18.31 Ratio (12.00-20.00); Blood Urea Nitrogen 14.7 mg/dL (9.0-27.0); Calcium 8.5 mg/dL (8.7-10.3); Carbon Dioxide 21.8 mmol/L (20.0-27.5); Non-African American GFR(CKD) 71.8 (60.0-200.0)
[2022-10-31] MEDS: SODIUM CHLORIDE 0.9% 1,000 ML IV SCH ×2 (11:21→23:46)
[2022-10-31] MEDS: PANTOPRAZOLE 40 MG/10 ML VIAL IVP SCH (17:11)
[2022-10-31] MEDS: HYDROcodone/APAP 5-325MG 1 EACH TAB PO PRN (17:19)
[2022-10-31] MEDS: SENNOSIDES-DOCUSATE SODIUM 1 EACH TAB PO SCH (21:00)
[2022-11-01] MEDS: LEVOTHYROXINE 100 MCG TAB PO SCH (05:19)
--- NOTE | 2022-11-01 07:56 | P.PN ---
Subjective Progress Note Date: 11/01/22 Principal diagnosis: Fall from standing with trauma Left hip pain Patient seen and examined at bedside. Patient is currently resting in bed. Surgical dressing is clean dry and intact to the right hip. Joyce catheter has been discontinued this morning, patient due to void. Patient has remained afebrile, no complaints of nausea/vomiting, or chest pain. Objective - Vital Signs Vital signs: Vital Signs Temp 99.0 F 11/01/22 07:18 Pulse 78 11/01/22 07:18 Resp 14 11/01/22 07:18 BP 155/78 11/01/22 07:18 Pulse Ox 93 L 11/01/22 07:18 FiO2 Intake & Output 10/31/22 11/01/22 11/01/22 18:59 06:59 18:59 Output Total 550 1775 Balance -550 -1775 Output: Urine 550 1775 Uretheral (Joyce) 600 Other: Voiding Method Indwelling Catheter Indwelling Catheter - Exam Physical Examination General: The patient is awake and alert, in no acute distress Skin: Skin is warm and dry with no obvious rashes or lesions. Hairy patches absent, no dorsal skin dimples, no cafe au lait spots. Surgical incision to right hip is CDI, no shadowing noted. Eye: Pupils are equal, round and reactive to light, extra-ocular movements are intact; there is normal conjunctiva bilaterally. Neck: The neck is supple, there is no tenderness and ROM intact. Cardiovascular: There is a regular rate and rhythm. No murmur, rub or gallop is appreciated. Respiratory: Lungs are clear to auscultation, respirations are non-labored, breath sounds are equal. Gastrointestinal: Soft, non-distended, non-tender abdomen. Musculoskeletal: ROM limited secondary to pain and stiffness from surgical procedure. Muscle strength in all major muscle groups of bilateral upper extremities 4/5, bilateral lower extremities 4/5. Neurological: CN 2-12 intact. There are no obvious motor or sensory deficits. Movement and coordination equal and intact. Sensory exam to light touch intact C5-T1 and intact from L2-S1. Reflexes 2/4 in bilateral upper and lower extremities. Negative Hoffmans, babinski, and clonus signs. Psychiatric: Cooperative, appropriate mood & affect, normal judgment. - Labs CBC & Chem 7: 10/31/22 06:17 10/31/22 06:17 Labs: Abnormal Lab Results - Last 24 Hours (Table) 10/31/22 10/31/22 Range/Units 06:17 06:17 WBC 14.06 H (4.50-10.00) X 10*3/uL RBC 3.66 L (4.10-5.20) X 10*6/uL Hgb 11.1 L (12.0-15.0) g/dL Hct 32.7 L (37.2-46.3) % Immature Gran # 0.10 H (0.00-0.04) X 10*3/uL Neutrophils # 10.64 H (1.80-7.70) X 10*3/uL Monocytes # 1.29 H (0.20-1.00) X 10*3/uL Eosinophils # 0.01 L (0.04-0.35) X 10*3/uL Glucose 122 H (70-110) mg/dL Calcium 8.5 L (8.7-10.3) mg/dL Assessment and Plan Assessment: Post Op Day 2: Left Hip Roger-arthroplasty Fall from standing with trauma Left hip pain Left femoral neck fracture subcapital complete displaced Plan: -Appreciate art consultant and team management. -Activity: Ambulate QID, OOB all meals, up and about, limit lifting bending twisting to less than 5 lbs. Use walker or cane if needed for stability. -Daily PT/OT, increase ambulation strength and balance. -Pain control: Adequate at this time -Meds: reviewed -GI ppx: senna, Miralax -DVT PPX: Lovenox -Hygiene: Shower today. Maintain dressing clean and dry. -Encourage IS 10x/hr -Dispo: Anticipate discharge home with homecare vs [facility] *I reviewed and discussed this case with my attending Dr. Powell, whom has reviewed this chart and films and is in agreement with assessment and plan of care as outlined above. I have personally seen and examined the patient, performed the documentation and the assessment and plan as written. Number of minutes spent on the visit: 15m.
[2022-11-01] MEDS: ISOSORBIDE MONONITRATE ER 30 MG TAB.ER.24H PO SCH (08:29)
[2022-11-01] MEDS: MAGNESIUM OXIDE 400 MG TAB PO SCH (08:29)
[2022-11-01] MEDS: DONEPEZIL 10 MG TAB PO SCH (08:29)
[2022-11-01] MEDS: ENOXAPARIN 40 MG/0.4 ML SYRINGE SQ SCH (08:29)
[2022-11-01] MEDS: PANTOPRAZOLE 40 MG/10 ML VIAL IVP SCH (08:29)
[2022-11-01] MEDS: ATORVASTATIN 20 MG TAB PO SCH (08:29)
[2022-11-01] MEDS: FAMOTIDINE 20 MG TAB PO SCH (08:29)
[2022-11-01] MEDS: ASPIRIN 81 MG PO SCH (08:29)
[2022-11-01] MEDS: atenoloL 25 MG TAB PO SCH (08:29)
[2022-11-01] MEDS: MEMANTINE 10 MG TAB PO SCH ×2 (08:30→21:11)
[2022-11-01] MEDS: HYDROcodone/APAP 5-325MG 1 EACH TAB PO PRN (08:31)
[2022-11-01] MEDS: IPRATROPIUM-ALBUTEROL 3 ML NEB INHALATION SCH ×4 (08:49→20:33)
--- NOTE | 2022-11-01 15:59 | P.PN ---
Subjective Progress Note Date: 10/31/22 This is a 77-year-old female with past medical history of Alzheimer's dementia, CAD , hypertension, hyperlipidemia, hypothyroidism, former nicotine dependence, fibromyalgia and multiple other medical issues admitted with left femoral neck fracture status post fall. reported she fell while transferring, landing on her left hip. No head trauma, no syncope. CT reported no acute intracranial process, no evidence of C-spine fracture, mild multilevel degenerative disc disease. Denies chest pain, palpitations or shortness of breath. EKG reporting normal sinus rhythm. Radiology studies reported Left femoral neck fracture subcapital complete displaced, pelvis congruent without fracture as per orthopedic surgery review. Afebrile, WBC 12.7, hemoglobin 14.2, platelets 235, INR 1, BUN 19, creatinine 0.65. Scheduled for surgical repair today. Pain controlled at rest. 10/31/2022 status post left hip hemiarthroplasty, postop day #1. Tolerated procedure well. Pain controlled. T-max 99.3, WBC 14.06. Hemoglobin 11.1, platelets 206. Denies chest pain, palpitations or shortness of breath. Objective - Vital Signs Vital signs: Vital Signs Temp 98.1 F 10/31/22 14:00 Pulse 85 10/31/22 14:00 Resp 13 10/31/22 14:00 BP 144/66 10/31/22 14:00 Pulse Ox 91 L 10/31/22 14:00 FiO2 Intake & Output 10/30/22 10/31/22 10/31/22 18:59 06:59 18:59 Intake Total 1500 Output Total 1050 750 Balance 450 -750 Intake: IV 1500 Output: Urine 950 750 Estimated Blood Loss 100 Other: Voiding Method Indwelling Catheter Indwelling Catheter Indwelling Catheter - Exam PHYSICAL EXAM: VITAL SIGNS: [As above] GENERAL: Alert and oriented 1 , lying in bed, drowsy, pleasantly confused HEENT: Conjunctivae normal. eyes normal. NECK: Supple, No JVD. No thyroid enlargement. No LNs CARDIOVASCULAR: S1, S2 regular.. No murmur RESPIRATION: Breath sounds diminished in the bases. No rhonchi or crackles. No bronchial breathing. ABDOMEN: Soft, nontender . No guarding. no masses palpable. No ascites, No hepatosplenomegaly.Bowel sounds heard. LEGS: Left lower extremity dressing clean dry and intact, no calf tenderness, positive DP pulse NERVOUS SYSTEM: Limited Exam: Cranial N 2-12 grossly normal. Skin: Warm and dry ,no rash - Labs CBC & Chem 7: 10/31/22 06:17 10/31/22 06:17 Labs: Abnormal Lab Results - Last 24 Hours (Table) 10/31/22 10/31/22 Range/Units 06:17 06:17 WBC 14.06 H (4.50-10.00) X 10*3/uL RBC 3.66 L (4.10-5.20) X 10*6/uL Hgb 11.1 L (12.0-15.0) g/dL Hct 32.7 L (37.2-46.3) % Immature Gran # 0.10 H (0.00-0.04) X 10*3/uL Neutrophils # 10.64 H (1.80-7.70) X 10*3/uL Monocytes # 1.29 H (0.20-1.00) X 10*3/uL Eosinophils # 0.01 L (0.04-0.35) X 10*3/uL Glucose 122 H (70-110) mg/dL Calcium 8.5 L (8.7-10.3) mg/dL Assessment and Plan Assessment: Left hip fracture status post fall, status post left total hip arthroplasty Atelectasis Acute hypoxic respiratory failure secondary to the above Prior nicotine dependence CAD Hypertension Dyslipidemia Macular degeneration Hypothyroidism Plan: Continue on current medication regime ,monitoring and symptomatic treatment. Maintain aggressive pulmonary toileting with incentive spirometer ordered. Pain management. PT/OT .GI and DVT prophylaxis. Subacute rehab at discharge. The impression and plan of care has been dictated as directed. : I performed a history and examination of this patient, discussed the same with the dictator. I agree with the dictator's note ,documented as a scribe. Any additional findings or plans will be noted.
[2022-11-01] MEDS: SENNOSIDES-DOCUSATE SODIUM 1 EACH TAB PO SCH (21:11)
[2022-11-01] MEDS: SODIUM CHLORIDE 0.9% 1,000 ML IV SCH (21:11)
[2022-11-02] MEDS: LEVOTHYROXINE 100 MCG TAB PO SCH (06:47)
[2022-11-02] MEDS: PANTOPRAZOLE 40 MG TABLET PO SCH (06:47)
[2022-11-02] MEDS: SODIUM CHLORIDE 0.9% 1,000 ML IV SCH ×2 (06:50→23:56)
[2022-11-02] MEDS: IPRATROPIUM-ALBUTEROL 3 ML NEB INHALATION SCH ×4 (07:59→20:13)
--- NOTE | 2022-11-02 08:43 | P.PN ---
Subjective Progress Note Date: 11/02/22 Principal diagnosis: Fall from standing with trauma Left hip pain Patient seen and examined at bedside. Patient is currently resting in bed. Surgical dressing is clean dry and intact to the right hip. Patient voiding without difficulty. Patient has remained afebrile, no complaints of nausea/vomiting, or chest pain. May discharge to [facility] when bed available. Objective - Vital Signs Vital signs: Vital Signs Temp 98.2 F 11/02/22 02:00 Pulse 86 11/02/22 02:00 Resp 18 11/02/22 02:00 BP 137/84 11/02/22 02:00 Pulse Ox 93 L 11/02/22 02:00 FiO2 Intake & Output 11/01/22 11/02/22 11/02/22 18:59 06:59 18:59 Intake Total 960 Output Total 300 2500 Balance 660 -2500 Intake: Intake, IV Titration 960 Amount Sodium Chloride 0.9% 1, 960 000 ml @ 80 mls/hr IV . [id number] [facility] Rx#:[id number] Output: Urine 300 2500 Other: Voiding Method External Catheter External Catheter - Exam Physical Examination General: The patient is awake and alert, in no acute distress Skin: Skin is warm and dry with no obvious rashes or lesions. Hairy patches absent, no dorsal skin dimples, no cafe au lait spots. Surgical incision to right hip is CDI, no shadowing noted. Eye: Pupils are equal, round and reactive to light, extra-ocular movements are intact; there is normal conjunctiva bilaterally. Neck: The neck is supple, there is no tenderness and ROM intact. Cardiovascular: There is a regular rate and rhythm. No murmur, rub or gallop is appreciated. Respiratory: Lungs are clear to auscultation, respirations are non-labored, breath sounds are equal. Gastrointestinal: Soft, non-distended, non-tender abdomen. Musculoskeletal: ROM limited secondary to pain and stiffness from surgical procedure. Muscle strength in all major muscle groups of bilateral upper extremities 4/5, bilateral lower extremities 4/5. Neurological: CN 2-12 intact. There are no obvious motor or sensory deficits. Movement and coordination equal and intact. Sensory exam to light touch intact C5-T1 and intact from L2-S1. Reflexes 2/4 in bilateral upper and lower extremities. Negative Hoffmans, babinski, and clonus signs. Psychiatric: Cooperative, appropriate mood & affect, normal judgment. - Labs CBC & Chem 7: 10/31/22 06:17 10/31/22 06:17 Assessment and Plan Assessment: Post Op Day 3: Left Hip Roger-arthroplasty Fall from standing with trauma Left hip pain Left femoral neck fracture subcapital complete displaced Plan: -Appreciate safety and health consultant and team management. -Activity: Ambulate QID, OOB all meals, up and about, limit lifting bending twisting to less than 5 lbs. Use walker or cane if needed for stability. -Daily PT/OT, increase ambulation strength and balance. -Pain control: Adequate at this time -Meds: reviewed -GI ppx: senna, Miralax -DVT PPX: Lovenox -Hygiene: Shower today. Maintain dressing clean and dry. -Encourage IS 10x/hr -Dispo: Anticipate discharge [facility] when bed available *I reviewed and discussed this case with my attending Dr. Powell, whom has reviewed this chart and films and is in agreement with assessment and plan of care as outlined above. I have personally seen and examined the patient, performed the documentation and the assessment and plan as written. Number of minutes spent on the visit: 15m.
[2022-11-02] MEDS: FAMOTIDINE 20 MG TAB PO SCH (10:14)
[2022-11-02] MEDS: MEMANTINE 10 MG TAB PO SCH ×2 (10:15→21:53)
[2022-11-02] MEDS: ENOXAPARIN 40 MG/0.4 ML SYRINGE SQ SCH (10:15)
[2022-11-02] MEDS: MAGNESIUM OXIDE 400 MG TAB PO SCH (10:15)
[2022-11-02] MEDS: ASPIRIN 81 MG PO SCH (10:15)
[2022-11-02] MEDS: atenoloL 25 MG TAB PO SCH (10:15)
[2022-11-02] MEDS: ISOSORBIDE MONONITRATE ER 30 MG TAB.ER.24H PO SCH (10:15)
[2022-11-02] MEDS: DONEPEZIL 10 MG TAB PO SCH (10:15)
[2022-11-02] MEDS: ATORVASTATIN 20 MG TAB PO SCH (10:15)
--- NOTE | 2022-11-02 10:42 | P.DS ---
Providers Date of admission: 10/29/22 17:28 Expected date of discharge: 11/02/22 Attending physician: Mark Powell DO Consults: 10/29/22 17:27 Consult Physician Routine Consulting Provider: Cristian Arvizu Reason/Comments: medicine consult Do you want consulting provider notified?: Yes Primary care physician: Cristian Arvizu [facility] Course: Date of admission: 10/30/2022 Date of discharge: 11/02/2022 Admission diagnosis: Left hip femoral neck fracture Discharge diagnosis: same Attending physician: Dr. Powell Surgical procedures: Left hip hemiarthroplasty Brief history: Patient is a 77-year-old female with a history of right hip femoral neck fracture. At this point patient has failed conservative treatment measures and has opted to proceed with a elective left hip hemiarthroplasty. Hospital course: Details of patient's surgery can be found in operative report. Patient tolerated the procedure well and was subsequently transported to orthopedic floor. Patient's orthopeidc and medical care was provided daily. Patient had daily laboratory tests performed for evaluation of overall blood counts. Patient had daily physical therapy to include strengthening range of motion as well as education with walker ambulation. Patient was treated with Lovenox for their postoperative DVT prophylaxis during their inpatient stay. Patient was noted to have a relatively uneventful postoperative course. Patient reported satisfactory pain control with oral pain medications by postoperative day 3. Patient showed satisfactory progress with physical therapy. Patient moved steadily through the program and had no difficulty meeting the goals by postoperative day 3. Given patient's otherwise satisfactory course and having met physical therapy goals, plan is to discharge patient [facility] on postoperative day 3. Discharge condition/disposition: Patient will be discharged [facility] in stable condition. Discharge medications: Instructions are given on resumption of patient's normal daily medications per primary care recommendation, in addition patient will be prescribed [place]; resume home medications. Discharge instructions: 1. Wound care and infection precautions, keep incision dry and covered while showering, no lotions, creams, moisturizers. No soaking, tubs, pools, hottubs. Do not scrub over the incision. 2. Weight-bear as tolerated with walker / cane until follow-up. 3. Ice and elevate when necessary. Do not exceed 20 minutes per hour with ice pack. 4. nursing care. 5. Physical therapy at rehab 6. Pain meds and anticoagulants per prescription. 7. Pain medication has potential to cause constipation. Increase oral fluid and fiber intake. Contact primary care provider if you have not had a bowel movement within 48 hours after discharge 8. No anti-inflammatory medication until discussed at first post operative visit, this including Motrin, Aleve, Mobic, Diclofenac, Aspirin. 9. Follow up in office at 2 weeks postop with Lebron Cobos PA-C / Urbano Lee PA-C 10. Follow up with your primary care doctor 7-10 days after discharge. 11. Contact [facility] with any questions, . Assessment: Left hip femoral neck fracture Procedures: Left hip hemiarthroplasty Patient Condition at Discharge: Good Plan - Discharge Summary Discharge Rx Participant: Yes New Discharge Prescriptions: New Enoxaparin [Lovenox] 40 mg SQ DAILY #28 each HYDROcodone/APAP 5-325MG [[place] 5-325] 1 tab PO Q6HR PRN #28 tab PRN Reason: Pain No Action Nitroglycerin Sl Tabs [Nitrostat] 0.4 mg SL Q5M PRN PRN Reason: Chest Pain Aspirin EC [Ecotrin Low Dose] 81 mg PO DAILY atenoloL [Tenormin] 25 mg PO DAILY Naproxen 500 mg PO BID PRN PRN Reason: Headache/Pain Vit C/E/Zn/Coppr/Lutein/Zeaxan [Preservision Areds 2 Softgel] 1 cap PO BID Memantine [Namenda] 10 mg PO BID Famotidine 40 mg PO DAILY Fexofenadine HCl [Nellie Allergy] 180 mg PO DAILY Calcium Citrate/Vitamin D3 [Citracal + D Maximum Caplet] 1 tab PO DAILY Rosuvastatin [Crestor] 10 mg PO DAILY Magnesium Oxide [Magnesium] 500 mg PO DAILY Donepezil [Aricept] 10 mg PO DAILY Calcium Carb/Magnesium Hydrox [Rolaids Ultra 1000-200 mg Chew] 1 - 2 tab PO DAILY PRN PRN Reason: Heartburn Isosorbide Mononitrate ER [Imdur] 15 mg PO DAILY Levothyroxine Sodium [Synthroid] 200 mcg PO DAILY Discharge Medication List Aspirin EC [Ecotrin Low Dose] 81 mg PO DAILY 04/26/17 [History] Naproxen 500 mg PO BID PRN 04/26/17 [History] Nitroglycerin Sl Tabs [Nitrostat] 0.4 mg SL Q5M PRN 04/26/17 [History] Vit C/E/Zn/Coppr/Lutein/Zeaxan [Preservision Areds 2 Softgel] 1 cap PO BID 04/26/17 [History] atenoloL [Tenormin] 25 mg PO DAILY 04/26/17 [History] Famotidine 40 mg PO DAILY 03/21/18 [History] Fexofenadine HCl [Nellie Allergy] 180 mg PO DAILY 03/21/18 [History] Memantine [Namenda] 10 mg PO BID 03/21/18 [History] Calcium Carb/Magnesium Hydrox [Rolaids Ultra 1000-200 mg Chew] 1 - 2 tab PO DAILY PRN 10/29/22 [History] Calcium Citrate/Vitamin D3 [Citracal + D Maximum Caplet] 1 tab PO DAILY 10/29/22 [History] Donepezil [Aricept] 10 mg PO DAILY 10/29/22 [History] Isosorbide Mononitrate ER [Imdur] 15 mg PO DAILY 10/29/22 [History] Levothyroxine Sodium [Synthroid] 200 mcg PO DAILY 10/29/22 [History] Magnesium Oxide [Magnesium] 500 mg PO DAILY 10/29/22 [History] Rosuvastatin [Crestor] 10 mg PO DAILY 10/29/22 [History] Enoxaparin [Lovenox] 40 mg SQ DAILY #28 each 11/02/22 [Rx] HYDROcodone/APAP 5-325MG [[place] 5-325] 1 tab PO Q6HR PRN #28 tab 11/02/22 [Rx] Follow up Appointment(s)/Referral(s): Cristian Arvizu DO [Primary Care Provider] - 1-2 days Mark Powell DO [Doctor of Osteopathic Medicine] - 2 Weeks Patient Instructions/Handouts: Hip Fracture (GEN) Activity/Diet/Wound Care/Special Instructions: Discharge instructions: 1. Wound care and infection precautions, keep incision dry and covered while showering, no lotions, creams, moisturizers. No soaking, tubs, pools, hottubs. Do not scrub over the incision. 2. Weight-bear as tolerated with walker / cane until follow-up. 3. Ice and elevate when necessary. Do not exceed 20 minutes per hour with ice pack. 4. nursing care. 5. Physical therapy at rehab 6. Pain meds and anticoagulants per prescription. 7. Pain medication has potential to cause constipation. Increase oral fluid and fiber intake. Contact primary care provider if you have not had a bowel movement within 48 hours after discharge 8. No anti-inflammatory medication until discussed at first post operative visit, this including Motrin, Aleve, Mobic, Diclofenac, Aspirin. 9. Follow up in office at 2 weeks postop with Lebron Cobos PA-C / Urbano Lee PA-C 10. Follow up with your primary care doctor 7-10 days after discharge. 11. Contact [facility] with any questions, . Discharge Disposition: TRANSFER TO SNF/ECF
[2022-11-02 10:45] LABS: Basophils # (A) 0.05 X 10*3/uL (0.00-0.10); Basophils % (A) 0.5 %; Eosinophils # (A) 0.14 X 10*3/uL (0.04-0.35); Eosinophils % (A) 1.3 %; HCT 33.9 % (37.2-46.3); Immature Grans, Automated 0.8 %; Lymphocytes # (A) 1.73 X 10*3/uL (0.90-5.00); Lymphocytes % (A) 16.5 %; MCH 29.4 pg (27.0-32.0); MCHC 32.4 g/dL (32.0-37.0); MCV 90.6 fL (80.0-97.0); Mean Platelet Volume 11.1 fL (9.5-12.2); Monocytes % (A) 10.5 %; NRBC Per 100 WBC 0 /100 WBCS (0.0-0.0); Neutrophils % (A) 70.4 %; Platelet Count 213 X 10*3/uL (140-440); RBC 3.74 X 10*6/uL (4.10-5.20); RDW 13.3 % (11.5-14.5)
[2022-11-02 10:55] LABS: African American GFR (CKD) 103.3 (60.0-200.0); Anion Gap 11.9 mmol/L (10.00-18.00); BUN/Creat Ratio 13.83 Ratio (12.00-20.00); Blood Urea Nitrogen 8.3 mg/dL (9.0-27.0); Calcium 8.2 mg/dL (8.7-10.3); Carbon Dioxide 23.1 mmol/L (20.0-27.5); Non-African American GFR(CKD) 89.2 (60.0-200.0); Potassium 3.7 mmol/L (3.5-5.5)
--- NOTE | 2022-11-02 11:54 | P.PN ---
Subjective Progress Note Date: 11/01/22 This is a 77-year-old female with past medical history of Alzheimer's dementia, CAD , hypertension, hyperlipidemia, hypothyroidism, former nicotine dependence, fibromyalgia and multiple other medical issues admitted with left femoral neck fracture status post fall. reported she fell while transferring, landing on her left hip. No head trauma, no syncope. CT reported no acute intracranial process, no evidence of C-spine fracture, mild multilevel degenerative disc disease. Denies chest pain, palpitations or shortness of breath. EKG reporting normal sinus rhythm. Radiology studies reported Left femoral neck fracture subcapital complete displaced, pelvis congruent without fracture as per orthopedic surgery review. Afebrile, WBC 12.7, hemoglobin 14.2, platelets 235, INR 1, BUN 19, creatinine 0.65. Scheduled for surgical repair today. Pain controlled at rest. 10/31/2022 status post left hip hemiarthroplasty, postop day #1. Tolerated procedure well. Pain controlled. T-max 99.3, WBC 14.06. Hemoglobin 11.1, platelets 206. Denies chest pain, palpitations or shortness of breath. 11/01/2022 postop day #2, pain controlled. T-max 99. Maintaining O2 sats in the 90s on 2 L nasal cannula. Denies chest pain, palpitations or increasing shortness of breath. Consuming 50%, denies nausea vomiting or diarrhea. Passing flatus. Objective - Vital Signs Vital signs: Vital Signs Temp 99.7 F H 11/01/22 13:56 Pulse 90 11/01/22 13:56 Resp 13 11/01/22 13:56 BP 153/80 11/01/22 13:56 Pulse Ox 96 11/01/22 13:56 FiO2 Intake & Output 10/31/22 11/01/22 11/01/22 18:59 06:59 18:59 Output Total 550 1775 Balance -550 -1775 Output: Urine 550 1775 Uretheral (Joyce) 600 Other: Voiding Method Indwelling Catheter Indwelling Catheter External Catheter - Exam PHYSICAL EXAM: VITAL SIGNS: [As above] GENERAL: Alert and oriented 1 , lying in bed, drowsy HEENT: Conjunctivae normal. eyes normal. MMM. NECK: Supple, No JVD. CARDIOVASCULAR: S1, S2 regular.. No murmur RESPIRATION: Breath sounds diminished in the bases. No rhonchi or crackles. No bronchial breathing. ABDOMEN: Soft, nontender . No guarding. no masses palpable. Bowel sounds heard. LEGS: Left lower extremity dressing clean dry and intact, no calf tenderness, positive DP pulse NERVOUS SYSTEM: Limited Exam: Cranial N 2-12 grossly normal. Skin: Warm and dry ,no rash - Labs CBC & Chem 7: 11/02/22 07:15 11/02/22 07:15 Assessment and Plan Assessment: Left hip fracture status post fall, status post left total hip arthroplasty Atelectasis Acute hypoxic respiratory failure secondary to the above Prior nicotine dependence CAD Hypertension Dyslipidemia Macular degeneration Hypothyroidism Plan: Continue on current medication regime ,monitoring and symptomatic treatment. Aggressive pulmonary toileting with incentive spirometer reinforced. Pain management. PT/OT . Possibly [facility] Subacute rehab at discharge. The impression and plan of care has been dictated as directed. : I performed a history and examination of this patient, discussed the same with the dictator. I agree with the dictator's note ,documented as a scribe. Any additional findings or plans will be noted.
--- NOTE | 2022-11-02 12:03 | P.PN ---
Subjective Progress Note Date: 11/02/22 This is a 77-year-old female with past medical history of Alzheimer's dementia, CAD , hypertension, hyperlipidemia, hypothyroidism, former nicotine dependence, fibromyalgia and multiple other medical issues admitted with left femoral neck fracture status post fall. reported she fell while transferring, landing on her left hip. No head trauma, no syncope. CT reported no acute intracranial process, no evidence of C-spine fracture, mild multilevel degenerative disc disease. Denies chest pain, palpitations or shortness of breath. EKG reporting normal sinus rhythm. Radiology studies reported Left femoral neck fracture subcapital complete displaced, pelvis congruent without fracture as per orthopedic surgery review. Afebrile, WBC 12.7, hemoglobin 14.2, platelets 235, INR 1, BUN 19, creatinine 0.65. Scheduled for surgical repair today. Pain controlled at rest. 10/31/2022 status post left hip hemiarthroplasty, postop day #1. Tolerated procedure well. Pain controlled. T-max 99.3, WBC 14.06. Hemoglobin 11.1, platelets 206. Denies chest pain, palpitations or shortness of breath. 11/01/2022 postop day #2, pain controlled. T-max 99. Maintaining O2 sats in the 90s on 2 L nasal cannula. Denies chest pain, palpitations or increasing shortness of breath. Consuming 50%, denies nausea vomiting or diarrhea. Passing flatus. 11/02/2022 postop day #3. T-max 99.7, leukocytosis resolved. Hemoglobin 11, platelets 213. Renal function stable. Pain controlled. Passing flatus. Tolerating diet with no nausea or vomiting. Denies chest pain, palpitations or increased shortness of breath. Maintaining O2 sats in the 90s on 2 L nasal cannula. Objective - Vital Signs Vital signs: Vital Signs Temp 98.1 F 11/02/22 08:00 Pulse 78 11/02/22 11:48 Resp 16 11/02/22 08:00 BP 147/86 11/02/22 08:00 Pulse Ox 92 L 11/02/22 08:00 FiO2 Intake & Output 11/01/22 11/02/22 11/02/22 18:59 06:59 18:59 Intake Total 960 Output Total 300 2500 Balance 660 -2500 Intake: Intake, IV Titration 960 Amount Sodium Chloride 0.9% 1, 960 000 ml @ 80 mls/hr IV . [id number] [facility] Rx#:[id number] Output: Urine 300 2500 Other: Voiding Method External Catheter External Catheter - Exam PHYSICAL EXAM: VITAL SIGNS: [As above] GENERAL: Alert and oriented 1-2 , sitting up in bed HEENT: Conjunctivae normal. eyes normal. MMM. NECK: Supple, No JVD. CARDIOVASCULAR: S1, S2 regular. No murmur RESPIRATION: Breath sounds diminished in the bases. No rhonchi or crackles. ABDOMEN: Soft, nontender . No guarding. no masses palpable. Bowel sounds heard. LEGS: Left lower extremity dressing clean dry and intact, no calf tenderness, positive DP pulse NERVOUS SYSTEM: Limited Exam: Cranial N 2-12 grossly normal. Skin: Warm and dry ,no rash - Labs CBC & Chem 7: 11/02/22 07:15 11/02/22 07:15 Labs: Abnormal Lab Results - Last 24 Hours (Table) 11/02/22 11/02/22 Range/Units 07:15 07:15 WBC 10.50 H (4.50-10.00) X 10*3/uL RBC 3.74 L (4.10-5.20) X 10*6/uL Hgb 11.0 L (12.0-15.0) g/dL Hct 33.9 L (37.2-46.3) % Immature Gran # 0.08 H (0.00-0.04) X 10*3/uL Monocytes # 1.10 H (0.20-1.00) X 10*3/uL BUN 8.3 L (9.0-27.0) mg/dL Glucose 127 H (70-110) mg/dL Calcium 8.2 L (8.7-10.3) mg/dL Assessment and Plan Assessment: Left hip fracture status post fall, status post left total hip arthroplasty Atelectasis Acute hypoxic respiratory failure secondary to the above Prior nicotine dependence CAD Hypertension Dyslipidemia Macular degeneration Hypothyroidism Plan: Continue on current medication regime ,monitoring and symptomatic treatme nt. Maintain Aggressive pulmonary toileting with incentive spirometer at [facility]. Pain management. PT/OT . Discharge in progress for [facility] rehab at discharge as per orthopedic surgery. Follow-up with PCP in 1 week after DC from subacute rehab. The impression and plan of care has been dictated as directed. : I performed a history and examination of this patient, discussed the same with the dictator. I agree with the dictator's note ,documented as a scribe. Any additional findings or plans will be noted.
[2022-11-02] MEDS: SENNOSIDES-DOCUSATE SODIUM 1 EACH TAB PO SCH (21:53)
[2022-11-03] MEDS: SODIUM CHLORIDE 0.9% 1,000 ML IV SCH (02:00)
[2022-11-03] MEDS: LEVOTHYROXINE 100 MCG TAB PO SCH (06:37)
[2022-11-03] MEDS: PANTOPRAZOLE 40 MG TABLET PO SCH (06:37)
[2022-11-03] MEDS: IPRATROPIUM-ALBUTEROL 3 ML NEB INHALATION SCH ×2 (08:43→12:06)
[2022-11-03] MEDS: DONEPEZIL 10 MG TAB PO SCH (09:50)
[2022-11-03] MEDS: atenoloL 25 MG TAB PO SCH (09:50)
[2022-11-03] MEDS: ASPIRIN 81 MG PO SCH (09:51)
[2022-11-03] MEDS: FAMOTIDINE 20 MG TAB PO SCH (09:51)
[2022-11-03] MEDS: ISOSORBIDE MONONITRATE ER 30 MG TAB.ER.24H PO SCH (09:51)
[2022-11-03] MEDS: MAGNESIUM OXIDE 400 MG TAB PO SCH (09:51)
[2022-11-03] MEDS: ATORVASTATIN 20 MG TAB PO SCH (09:51)
[2022-11-03] MEDS: ENOXAPARIN 40 MG/0.4 ML SYRINGE SQ SCH (09:51)
[2022-11-03] MEDS: MEMANTINE 10 MG TAB PO SCH (09:51)
[2022-11-03 09:57] VITALS: BP 135/84; RESP 16; TEMP 97.9
--- NOTE | 2022-11-03 10:01 | P.PN ---
Subjective Progress Note Date: 11/03/22 Principal diagnosis: Status post left hip hemiarthroplasty Patient is examined today at bedside, she remained stable. She is having no acute pain with regards to the left hip. Objective - Vital Signs Vital signs: Vital Signs Temp 97.9 F 11/03/22 08:00 Pulse 72 11/03/22 08:55 Resp 16 11/03/22 08:00 BP 135/84 11/03/22 08:00 Pulse Ox 92 L 11/03/22 08:45 FiO2 Intake & Output 11/02/22 11/03/22 11/03/22 18:59 06:59 18:59 Output Total 500 950 Balance -500 -950 Output: Urine 500 950 Other: Voiding Method External Catheter External Catheter - Exam Left lower extremity: Incision is clean, dry, and intact. The foam dressing is in good condition. There is minimal soft tissue swelling and ecchymosis surrounding the medial and lateral aspects of the incision. Calf is soft, no tenderness with palpation. Plantar flexion, dorsiflexion, EHL, FHL are intact. Sensory exam to light touch throughout the extremity is intact, dorsal pedis pulses 2+. - Labs CBC & Chem 7: 11/02/22 07:15 11/02/22 07:15 Labs: Abnormal Lab Results - Last 24 Hours (Table) 11/02/22 11/02/22 Range/Units 07:15 07:15 WBC 10.50 H (4.50-10.00) X 10*3/uL RBC 3.74 L (4.10-5.20) X 10*6/uL Hgb 11.0 L (12.0-15.0) g/dL Hct 33.9 L (37.2-46.3) % Immature Gran # 0.08 H (0.00-0.04) X 10*3/uL Monocytes # 1.10 H (0.20-1.00) X 10*3/uL BUN 8.3 L (9.0-27.0) mg/dL Glucose 127 H (70-110) mg/dL Calcium 8.2 L (8.7-10.3) mg/dL Assessment and Plan Assessment: Postoperative day #4 status post left hip hemiarthroplasty, status post fall left femoral neck fracture Plan: Pain control, plan for discharge on low-dose oral medication DVT prophylaxis, Lovenox subcu daily for 20 days Weight-bear as tolerated Daily PT at rehab Medical recommendations Discharge planning: Stable for discharge to rehab today Time with Patient: Less than 30
[2022-11-03 12:19] VITALS: PULSE 74
== END 2022-11-03 13:20 | DRG 521 ==
LOC: EC 14:23 → 4SSUR 17:28
PROVIDERS: ADMIT Orthopaedic Surgery; ATTEND Orthopaedic Surgery
PROC: 0SRS0JA Replacement of Left Hip Joint, Femoral Surface with Synthetic Substitute, Uncemented, Open Approach (ICD-10-PCS; principal; 2022-10-30 08:45)
DX: S72.012A Unspecified intracapsular fracture of left femur, initial encounter for closed fracture (principal); J96.01 Acute respiratory failure with hypoxia; J98.11 Atelectasis; G30.9 Alzheimer's disease, unspecified; F02.80 Dementia in other diseases classified elsewhere, unspecified severity, without behavioral disturbance, psychotic disturbance, mood disturbance, and anxiety; Z20.822 Contact with and (suspected) exposure to COVID-19; D72.829 Elevated white blood cell count, unspecified; E78.5 Hyperlipidemia, unspecified; M79.7 Fibromyalgia; I10 Essential (primary) hypertension; I25.10 Atherosclerotic heart disease of native coronary artery without angina pectoris; E89.0 Postprocedural hypothyroidism; H35.30 Unspecified macular degeneration; Z79.890 Hormone replacement therapy; Z79.82 Long term (current) use of aspirin; Z79.899 Other long term (current) drug therapy; Z87.891 Personal history of nicotine dependence; W18.30XA Fall on same level, unspecified, initial encounter; Z91.018 Allergy to other foods
CPT/HCPCS: 36415; 51702; 70450; 71045; 72125; 73501; 73502; 80048; 85025; 85610; 85730; 87635; 93005; 94640; 94760; 99285

== ENCOUNTER 2022-11-17 06:57 | Emergency (ER) | payer MEDICARE ==
[2022-11-17 07:06] VITALS: TEMP 98.5
--- NOTE | 2022-11-17 07:27 | ED ---
General Adult HPI - General Chief complaint: Extremity Injury, Lower Stated complaint: Hip Pain Time Seen by Provider: 11/17/22 07:06 Source: patient, EMS, RN notes reviewed, old records reviewed (Reviewed reports from nursing facility) Mode of arrival: EMS Limitations: altered mental status - History of Present Illness Initial comments: Patient is a pleasant 77-year-old female presenting to the emergency department with concern for postoperative hip problems. Patient is a poor historian. Patient does not believe that she had recent hip surgery. Patient denies any pain or any problems. Patient states she is doing just fine. - Related Data Home Medications Medication Instructions Recorded Confirmed Aspirin EC [Ecotrin Low Dose] 81 mg PO DAILY 04/26/17 10/29/22 Naproxen 500 mg PO BID PRN 04/26/17 10/29/22 Nitroglycerin Sl Tabs [Nitrostat] 0.4 mg SL Q5M PRN 04/26/17 10/29/22 Vit C/E/Zn/Coppr/Lutein/Zeaxan 1 cap PO BID 04/26/17 10/29/22 [Preservision Areds 2 Softgel] atenoloL [Tenormin] 25 mg PO DAILY 04/26/17 10/29/22 Famotidine 40 mg PO DAILY 03/21/18 10/29/22 Fexofenadine HCl [Nellie Allergy] 180 mg PO DAILY 03/21/18 10/29/22 Memantine [Namenda] 10 mg PO BID 03/21/18 10/29/22 Calcium Carb/Magnesium Hydrox 1 - 2 tab PO DAILY PRN 10/29/22 10/29/22 [Rolaids Ultra 1000-200 mg Chew] Calcium Citrate/Vitamin D3 1 tab PO DAILY 10/29/22 10/29/22 [Citracal + D Maximum Caplet] Donepezil [Aricept] 10 mg PO DAILY 10/29/22 10/29/22 Isosorbide Mononitrate ER [Imdur] 15 mg PO DAILY 10/29/22 10/29/22 Levothyroxine Sodium [Synthroid] 200 mcg PO DAILY 10/29/22 10/29/22 Magnesium Oxide [Magnesium] 500 mg PO DAILY 10/29/22 10/29/22 Rosuvastatin [Crestor] 10 mg PO DAILY 10/29/22 10/29/22 Previous Rx's Medication Instructions Recorded Enoxaparin [Lovenox] 40 mg SQ DAILY #28 each 11/02/22 HYDROcodone/APAP 5-325MG [[place] 1 tab PO Q6HR PRN #28 tab 11/02/22 5-325] Allergies Allergy/AdvReac Type Severity Reaction Status Date / Time perfume Allergy Anaphylaxis Verified 11/17/22 07:02 gluten AdvReac Abdominal Verified 11/17/22 07:02 Pain Review of Systems ROS Statement: Those systems with pertinent positive or pertinent negative responses have been documented in the HPI. ROS Other: All systems not noted in ROS Statement are negative. Constitutional: Denies: fever Eyes: Denies: eye pain ENT: Denies: ear pain Respiratory: Denies: cough Cardiovascular: Denies: chest pain Endocrine: Denies: fatigue Gastrointestinal: Denies: abdominal pain Genitourinary: Denies: dysuria Musculoskeletal: Denies: back pain Skin: Reports: as per HPI Past Medical History Past Medical History: Coronary Artery Disease (CAD), Chest Pain / Angina, Fibromyalgia, Hyperlipidemia, Hypertension, Memory Impairment, Thyroid Disorder Additional Past Medical History / Comment(s): CARDIOLOGY H & P BY DR. HIRSCH. Angina, RT EYE MACULAR DEGENERATION, OCCASSIONAL "HEARTBURN" History of Any Multi-Drug Resistant Organisms: None Reported Past Surgical History: Back Surgery, Heart Catheterization, Hysterectomy Additional Past Surgical History / Comment(s): thyroidectomy, OLIVERIO CATARACT Past Anesthesia/Blood Transfusion Reactions: No Reported Reaction Additional Past Anesthesia/Blood Transfusion Reaction / Comment(s): CLAUSTERPHOBIA Past Psychological History: No Psychological Hx Reported Smoking Status: Former smoker Past Alcohol Use History: Rare Past Drug Use History: None Reported - Past Family History Mother Family Medical History: Coronary Artery Disease (CAD) Additional Family Medical History / Comment(s): HEART PROBLEMS Father Family Medical History: Cancer Additional Family Medical History / Comment(s): LUNG CANCER General Exam Limitations: altered mental status General appearance: alert, in no apparent distress Head exam: Present: normocephalic Eye exam: Present: normal appearance, PERRL ENT exam: Present: normal oropharynx Neck exam: Present: normal inspection Respiratory exam: Present: normal lung sounds bilaterally Cardiovascular Exam: Present: regular rate, normal rhythm GI/Abdominal exam: Present: soft. Absent: tenderness Extremities exam: Present: other (There is tenderness to the lateral hip with mild swelling. Range of motion limited secondary to pain.). Absent: pedal edema, calf tenderness Neurological exam: Present: alert Psychiatric exam: Present: normal affect, normal mood Course Vital Signs 11/17/22 11/17/22 11/17/22 07:02 10:42 10:44 Temperature 98.5 F Pulse Rate 70 63 66 Respiratory 15 18 18 Rate Blood Pressure 121/95 123/84 125/98 O2 Sat by Pulse 96 97 97 Oximetry 11/17/22 11/17/22 11/17/22 10:46 10:47 10:52 Temperature Pulse Rate 65 86 70 Respiratory 18 18 18 Rate Blood Pressure 127/79 115/83 O2 Sat by Pulse 97 99 99 Oximetry 11/17/22 11/17/22 11/17/22 10:55 10:57 11:00 Temperature Pulse Rate 65 63 69 Respiratory 18 18 18 Rate Blood Pressure 116/80 135/84 148/84 O2 Sat by Pulse 99 99 99 Oximetry - Reevaluation(s) Reevaluation #1: 11/17/22 08:50 Case discussed with practitioner Gerri who does recommend calling Dr. Patel 7. He has been paged. 11/17/22 10:55 Case was earlier discussed with Dr. Patel son who did review the films and recommends reduction in the emergency department. EKG Findings - EKG Results: EKG: interpreted by NICKI (Low QRS voltage. Right bundle branch block. Nonspecific ST-T), sinus rhythm, normal axis Procedures - Orthopedic Joint Reduction Joint #1 Consent Obtained: verbal consent (From family) Side: left Joint Reduction Location: hip Analgesia: procedural sedation Shoulder Technique Used (if applicable): traction/counter-traction (With flexion and internal rotation) Post-Reduction Neuro Exam: intact Post-Reduction Vascular Exam: intact Post Reduction X-Ray Obtained: Yes Post Reduction X-Ray Results: reduced Patient Tolerated Procedure: well, no complications - Procedural Sedation *Procedural Sedation Start Time: 10:40 *Procedural Sedation Stop Time: 11:10 *Indications: fracture/dislocation reduction *Previous Adverse Reaction to Anesthesia/Sedation?: No * Testing Complete?: No Reason Test Not Complete:: Age > 60 *ASA Class: II *Mallampati Airway Score: 2 Preparation: telemetry monitor applied, pulse oximeter, capnometry used IV Propofol Dose (mgs): 50 Complications: none Interventions: oxygen applied Patient Tolerated Procedure: well, no complications Medical Decision Making - Medical Decision Making Patient reevaluated and updated - Lab Data Result diagrams: 11/17/22 08:01 11/17/22 08:01 Lab Results 11/17/22 11/17/22 11/17/22 Range/Units 08:01 08:01 08:01 WBC 11.4 H (3.8-10.6) k/uL RBC 4.50 (3.80-5.40) m/uL Hgb 13.4 (11.4-16.0) gm/dL Hct 39.7 (34.0-46.0) % MCV 88.1 (80.0-100.0) fL MCH 29.7 (25.0-35.0) pg MCHC 33.7 (31.0-37.0) g/dL RDW 13.1 (11.5-15.5) % Plt Count 487 H (150-450) k/uL MPV 7.6 Neutrophils % 78 % Lymphocytes % 15 % Monocytes % 5 % Eosinophils % 1 % Basophils % 1 % Neutrophils # 8.8 H (1.3-7.7) k/uL Lymphocytes # 1.7 (1.0-4.8) k/uL Monocytes # 0.5 (0-1.0) k/uL Eosinophils # 0.2 (0-0.7) k/uL Basophils # 0.1 (0-0.2) k/uL PT 10.7 (9.0-12.0) sec INR 1.0 (<1.2) APTT 20.2 L (22.0-30.0) sec Sodium 138 (137-145) mmol/L Potassium 4.8 (3.5-5.1) mmol/L Chloride 106 (98-107) mmol/L Carbon Dioxide 22 (22-30) mmol/L Anion Gap 10 mmol/L BUN 18 H (7-17) mg/dL Creatinine 0.55 (0.52-1.04) mg/dL Est GFR (CKD-EPI)AfAm >90 (>60 ml/min/1.73 sqM) Est GFR (CKD-EPI)NonAf >90 (>60 ml/min/1.73 sqM) Glucose 120 H (74-99) mg/dL Plasma Lactic Acid [place] (0.7-2.0) mmol/L Calcium 8.9 (8.4-10.2) mg/dL Total Bilirubin 0.7 (0.2-1.3) mg/dL AST 33 (14-36) U/L ALT 34 (4-34) U/L Alkaline Phosphatase 98 (38-126) U/L Total Protein 6.4 (6.3-8.2) g/dL Albumin 3.6 (3.5-5.0) g/dL 11/17/22 Range/Units 08:01 WBC (3.8-10.6) k/uL RBC (3.80-5.40) m/uL Hgb (11.4-16.0) gm/dL Hct (34.0-46.0) % MCV (80.0-100.0) fL MCH (25.0-35.0) pg MCHC (31.0-37.0) g/dL RDW (11.5-15.5) % Plt Count (150-450) k/uL MPV Neutrophils % % Lymphocytes % % Monocytes % % Eosinophils % % Basophils % % Neutrophils # (1.3-7.7) k/uL Lymphocytes # (1.0-4.8) k/uL Monocytes # (0-1.0) k/uL Eosinophils # (0-0.7) k/uL Basophils # (0-0.2) k/uL PT (9.0-12.0) sec INR (<1.2) APTT (22.0-30.0) sec Sodium (137-145) mmol/L Potassium (3.5-5.1) mmol/L Chloride (98-107) mmol/L Carbon Dioxide (22-30) mmol/L Anion Gap mmol/L BUN (7-17) mg/dL Creatinine (0.52-1.04) mg/dL Est GFR (CKD-EPI)AfAm (>60 ml/min/1.73 sqM) Est GFR (CKD-EPI)NonAf (>60 ml/min/1.73 sqM) Glucose (74-99) mg/dL Plasma Lactic Acid [place] 1.4 (0.7-2.0) mmol/L Calcium (8.4-10.2) mg/dL Total Bilirubin (0.2-1.3) mg/dL AST (14-36) U/L ALT (4-34) U/L Alkaline Phosphatase (38-126) U/L Total Protein (6.3-8.2) g/dL Albumin (3.5-5.0) g/dL - Radiology Data Interpreted by me: Chest x-ray reveals no acute process. Left hip x-ray shows dislocation of the entire prosthesis. Postreduction left hip x-ray shows acceptable reduction. Disposition Clinical Impression: Hip dislocation, left Disposition: HOME SELF-CARE Condition: Stable Instructions (If sedation given, give patient instructions): Hip Dislocation (ED) Additional Instructions: Continue to use hip brace. Please follow-up with orthopedics as directed. Please also follow-up primary care physician in the next day or 2 for recheck. Return for increased pain, concern for hip dislocation, fevers, worsening symptoms or other concerns. Is patient prescribed a controlled substance at d/c from ED?: No Referrals: Sheng Caballero MD [Primary Care Provider] - 1-2 days Time of Disposition: 11:39
[2022-11-17 08:07] LABS: Basophils # (A) 0.1 k/uL (0-0.2); Basophils % (A) 1 %; Eosinophils # (A) 0.2 k/uL (0-0.7); Eosinophils % (A) 1 %; HCT 39.7 % (34.0-46.0); HGB 13.4 gm/dL (11.4-16.0); Lymphocytes # (A) 1.7 k/uL (1.0-4.8); Lymphocytes % (A) 15 %; MCH 29.7 pg (25.0-35.0); MCHC 33.7 g/dL (31.0-37.0); MCV 88.1 fL (80.0-100.0); Mean Platelet Volume 7.6; Monocytes # (A) 0.5 k/uL (0-1.0); Monocytes % (A) 5 %; Neutrophils # (A) 8.8 k/uL (1.3-7.7); Neutrophils % (A) 78 %; Platelet Count 487 k/uL (150-450); RDW 13.1 % (11.5-15.5); WBC 11.4 k/uL (3.8-10.6)
[2022-11-17 08:19] LABS: ALT 34 U/L (4-34); African American GFR (CKD) >90 (>60 ml/min/1.73 sqM); Albumin 3.6 g/dL (3.5-5.0); Anion Gap 10 mmol/L; Blood Urea Nitrogen 18 mg/dL (7-17); Calcium 8.9 mg/dL (8.4-10.2); Carbon Dioxide 22 mmol/L (22-30); Chloride 106 mmol/L (98-107); Glucose 120 mg/dL (74-99); Non-African American GFR(CKD) >90 (>60 ml/min/1.73 sqM); Sodium 138 mmol/L (137-145); Total Bilirubin 0.7 mg/dL (0.2-1.3); Total Protein 6.4 g/dL (6.3-8.2)
[2022-11-17 08:30] LABS: Prothrombin Time 10.7 sec (9.0-12.0)
[2022-11-17 08:31] LABS: AST 33 U/L (14-36); Alkaline Phosphatase 98 U/L (38-126); Potassium 4.8 mmol/L (3.5-5.1)
[2022-11-17 08:42] LABS: Partial Thromboplastin Time 20.2 sec (22.0-30.0)
--- NOTE | 2022-11-17 08:42 | XR ---
EXAMINATION TYPE: XR chest 1V portable DATE OF EXAM: 11/17/2022 COMPARISON: Chest x-ray October 29, 2022 HISTORY: Fever after recent surgery. TECHNIQUE: Single frontal view of the chest is obtained. FINDINGS: Low lung volumes with right medial basilar linear scarring and/or atelectasis redemonstrat ed. Left lung remains clear. The cardiac silhouette size is stable and mildly enlarged. The osseou s structures are intact. IMPRESSION: Low lung volumes with medial right basilar linear scarring and/or atelectasis redemonstr ated. No new acute infiltrate seen.
--- NOTE | 2022-11-17 08:45 | XR ---
EXAMINATION TYPE: XR Hip LT and AP Pelvis DATE OF EXAM: 11/17/2022 COMPARISON: Pelvic and left hip pain HISTORY: Recent surgery for fracture with postoperative pain. TECHNIQUE: A single AP view of the pelvis is obtained. Two views of the left hip are obtained. FINDINGS: Metallic hardware from left hip arthroplasty now present. There is prosthetic dislocation s uperiorly. Remainder of pelvis shows no acute fracture or dislocation IMPRESSION: There is left hip prosthetic dislocation.
[2022-11-17] MEDS ORDERED: PROPOFOL 10 MG/ML 20 ML VIAL IV ONE (09:46)
[2022-11-17 10:44] VITALS: RESP 18
[2022-11-17 11:03] VITALS: BP 148/84; PULSE 69
--- NOTE | 2022-11-17 11:08 | XR ---
EXAMINATION TYPE: XR Hip Limited LT DATE OF EXAM: 11/17/2022 Comparison: 10/30/2022, earlier today Clinical History: 77-year-old female hip reduction Findings: Post surgical change of bipolar left hip hemiarthroplasty. There appears to be superolateral joint sp say narrowing along the weightbearing aspect of the hip joint suggesting degenerative thinning of the [place] acetabular articular cartilage. No periprosthetic fracture seen. Impression: Satisfactory interval reduction of the left hip bipolar hemiarthroplasty. There appears to be underly ing degenerative change of the [place] acetabular articular cartilage.
== END 2022-11-17 13:57 | disposition home or self-care (01) ==
LOC: EC 06:57
DX: S73.005A Unspecified dislocation of left hip, initial encounter (principal); I25.10 Atherosclerotic heart disease of native coronary artery without angina pectoris; E78.5 Hyperlipidemia, unspecified; I10 Essential (primary) hypertension; E07.9 Disorder of thyroid, unspecified; Z79.82 Long term (current) use of aspirin; Z79.899 Other long term (current) drug therapy; Z79.890 Hormone replacement therapy; Z91.048 Other nonmedicinal substance allergy status; Z91.018 Allergy to other foods; Z87.891 Personal history of nicotine dependence; X58.XXXA Exposure to other specified factors, initial encounter
CPT/HCPCS: 99284 ×2; 99152 ×2; 99153 ×2; 27266 ×2; 36415; 93005; 80053; 83605; 85025; 85610; 85730; 87040; 73501; 73502; 71045; J2704

== ENCOUNTER 2022-11-21 13:34 | Emergency (ER) | payer MEDICARE ==
--- NOTE | 2022-11-21 13:42 | ED ---
General Adult HPI - General Stated complaint: left hip pain Time Seen by Provider: 11/21/22 13:34 Source: patient, RN notes reviewed, old records reviewed - History of Present Illness Initial comments: This is a 77-year-old female who had a hip fracture on 1210 of this month. Patient has sense dislocated the prosthesis and been to the emergency department 4 days ago. Patient was in bed and turned the wrong way and then started having left hip pain and it is assumed that she has a hip fracture and that is why she was sent in. Patient cannot give us any history because of her dementia. No patient's family or caregivers with the patient so no further history is available at this time - Related Data Home Medications Medication Instructions Recorded Confirmed Aspirin EC [Ecotrin Low Dose] 81 mg PO DAILY@1700 04/26/17 11/21/22 Nitroglycerin Sl Tabs [Nitrostat] 0.4 mg SL Q5M PRN 04/26/17 11/21/22 Vit C/E/Zn/Coppr/Lutein/Zeaxan 1 cap PO BID@0800,1700 04/26/17 11/21/22 [Preservision Areds 2 Softgel] atenoloL [Tenormin] 25 mg PO DAILY@0800 04/26/17 11/21/22 Famotidine 40 mg PO DAILY@0800 03/21/18 11/21/22 Memantine [Namenda] 10 mg PO BID@0800,1700 03/21/18 11/21/22 Calcium Carb/Magnesium Hydrox 1 - 2 tab PO DAILY PRN 10/29/22 11/21/22 [Rolaids Ultra 1000-200 mg Chew] Calcium Citrate/Vitamin D3 1 tab PO DAILY@1700 10/29/22 11/21/22 [Citracal + D Maximum Caplet] Donepezil [Aricept] 10 mg PO DAILY@0800 10/29/22 11/21/22 Isosorbide Mononitrate ER [Imdur] 15 mg PO HS 10/29/22 11/21/22 Levothyroxine Sodium [Synthroid] 200 mcg PO DAILY@0600 10/29/22 11/21/22 Rosuvastatin [Crestor] 10 mg PO DAILY@0800 10/29/22 11/21/22 Enoxaparin [Lovenox] 40 mg SQ DAILY@1700 11/21/22 11/21/22 HYDROcodone/APAP 5-325MG [[place] 1 tab PO Q6H PRN 11/21/22 11/21/22 5-325] Loratadine 10 mg PO DAILY@0800 11/21/22 11/21/22 Magnesium Hydroxide [Milk of 7,200 mg PO Q2D PRN 11/21/22 11/21/22 Magnesia Concentrate] Magnesium Oxide [Magox 400] 400 mg PO DAILY@1700 11/21/22 11/21/22 Na Phos,M-B/Na Phos,Di-Ba [Fleet 133 ml RECTAL DAILY PRN 11/21/22 11/21/22 Adult] bisacodyL [Dulcolax] 10 mg RECTAL DAILY PRN 11/21/22 11/21/22 Allergies Allergy/AdvReac Type Severity Reaction Status Date / Time perfume Allergy Anaphylaxis Verified 11/21/22 14:58 gluten AdvReac Abdominal Verified 11/21/22 14:58 Pain Review of Systems ROS Statement: Those systems with pertinent positive or pertinent negative responses have been documented in the HPI. ROS Other: All systems not noted in ROS Statement are negative. Past Medical History Past Medical History: Coronary Artery Disease (CAD), Chest Pain / Angina, Fibromyalgia, Hyperlipidemia, Hypertension, Memory Impairment, Thyroid Disorder Additional Past Medical History / Comment(s): CARDIOLOGY H & P BY DR. HIRSCH. Angina, RT EYE MACULAR DEGENERATION, OCCASSIONAL "HEARTBURN" History of Any Multi-Drug Resistant Organisms: None Reported Past Surgical History: Back Surgery, Heart Catheterization, Hysterectomy Additional Past Surgical History / Comment(s): thyroidectomy, OLIVERIO CATARACT Past Anesthesia/Blood Transfusion Reactions: No Reported Reaction Additional Past Anesthesia/Blood Transfusion Reaction / Comment(s): CLAUSTERPHOBIA Past Psychological History: No Psychological Hx Reported Smoking Status: Former smoker Past Alcohol Use History: Rare Past Drug Use History: None Reported - Past Family History Mother Family Medical History: Coronary Artery Disease (CAD) Additional Family Medical History / Comment(s): HEART PROBLEMS Father Family Medical History: Cancer Additional Family Medical History / Comment(s): LUNG CANCER General Exam - General Exam Comments Initial Comments: GENERAL: Patient is well-developed and well-nourished. Patient is nontoxic and well- hydrated and is in mild distress. ENT: Neck is soft and supple. No significant lymphadenopathy is noted. Oropharynx is clear. Moist mucous membranes. Neck has full range of motion without eliciting any pain. EYES: The sclera were anicteric and conjunctiva were pink and moist. Extraocular movements were intact and pupils were equal round and reactive to light. Eyelids were unremarkable. PULMONARY: Unlabored respirations. Good breath sounds bilaterally. No audible rales rhonchi or wheezing was noted. CARDIOVASCULAR: There is a regular rate and rhythm without any murmurs gallops or rubs. ABDOMEN: Soft and nontender with normal bowel sounds. SKIN: Skin is clear with no lesions or rashes and otherwise unremarkable. NEUROLOGIC: Patient is alert and oriented 1. Cranial nerves II through XII are grossly intact. Motor and sensory are also intact. Normal speech, volume and content. Symmetrical smile. MUSCULOSKELETAL: Patient's left leg is inverted and shortened. Patient has pain to any palpation of the area or movement of the leg. LYMPHATICS: No significant lymphadenopathy is noted PSYCHIATRIC: Unable to assess Course Vital Signs 11/21/22 11/21/22 11/21/22 13:36 14:39 14:57 Temperature 97.5 F L Pulse Rate 62 60 64 Respiratory 18 18 18 Rate Blood Pressure 138/83 143/74 139/74 O2 Sat by Pulse 94 L 99 Oximetry 11/21/22 11/21/22 14:59 15:00 Temperature Pulse Rate 61 55 L Respiratory 18 16 Rate Blood Pressure 124/62 117/61 O2 Sat by Pulse 100 99 Oximetry Procedures - Orthopedic Joint Reduction Joint #1 Consent Obtained: verbal consent Side: left Joint Reduction Location: hip Analgesia: procedural sedation Technique Used: traction/counter-traction Post-Reduction Neuro Exam: intact Post-Reduction Vascular Exam: intact Post Reduction X-Ray Obtained: Yes (Hip was back in the joint) Post Reduction X-Ray Results: reduced Splint Applied: Yes Patient Tolerated Procedure: well - Procedural Sedation *Procedural Sedation Start Time: 14:57 *Procedural Sedation Stop Time: 15:30 *Indications: fracture/dislocation reduction *Previous Adverse Reaction to Anesthesia/Sedation?: No * Testing Complete?: No Reason Test Not Complete:: Age > 60 *ASA Class: II *Mallampati Airway Score: 2 Preparation: bus monitor applied, pulse oximeter IV Propofol Dose (mgs): 80 Medical Decision Making - Medical Decision Making Was pt. sent in by a medical professional or institution? @ -penitentiary Did you speak to anyone other than the patient for history? @ -EMS and Did you review nursing and triage notes? @ -I agree with the triage notes and nursing notes Were old charts reviewed? @ -I reviewed previous records for the patient when she was in the hospital for her hip surgery Differential Diagnosis? @ -Fractured pelvis, fractured hip, sprained hip, dislocated hip EKG interpreted by me (3pts min.)? @ -None X-rays interpreted by me (1pt min.)? @ -Yes x-ray showed a dislocated left hip. After reduction the hip was no longer dislocated showed good placement. CT interpreted by me (1pt min.)? @ -None U/S interpreted by me (1pt. min.)? @ -None What testing was considered but not performed? (CT, X-rays, U/S, labs)? Why? @ -None What meds were considered but not given? Why? @ -None Did you discuss the management of the patient with other professionals? @ -I spoke with Dr. Powell Did you reconcile home meds? @ -None Was smoking cessation discussed for >3mins.? @ -None Was critical care preformed (if so, how long)? @ -None Were there social determinants of health that impacted care today? How? (Homelessness, low income, unemployed, alcoholism, drug addiction, transportation, low edu. Level, literacy, decrease access to med. care, snf, rehab)? @ -No Was there de-escalation of care discussed even if they declined? (Discuss DNR or withdrawal of care, Hospice)? @ -No What co-morbidities impacted this encounter? (DM, HTN, Smoking, COPD, CAD, Cancer, CVA, Hep., AIDS, mental health diagnosis, sleep apnea, morbid obesity)? @ -No Was patient admitted / discharged? @ -Left hip dislocation. After the x-rays were back I did conscious sedation on the patient with traction countertraction on the hip with some internal rotation and abduction in the hip went back into place. Patient had good pulses patient Undiagnosed new problem with uncertain prognosis? @ -None Drug Therapy requiring intensive monitoring for toxicity (Heparin, Nitro, Insulin, Cardizem)? @ -None Were any procedures done? @ -Hip reduction Diagnosis/symptom? @ -Left hip dislocation Acute, or Chronic, or Acute on Chronic? @ -Acute Uncomplicated (without systemic symptoms) or Complicated (systemic symptoms)? @ -Uncomplicated Side effects of treatment? @ -None Exacerbation, Progression, or Severe Exacerbation] @ -No Poses a threat to life or bodily function? @ -No - Lab Data Result diagrams: 11/21/22 13:42 11/21/22 13:42 Lab Results 11/21/22 11/21/22 Range/Units 13:42 13:42 WBC 12.2 H (3.8-10.6) k/uL RBC 4.19 (3.80-5.40) m/uL Hgb 12.5 (11.4-16.0) gm/dL Hct 36.5 (34.0-46.0) % MCV 87.1 (80.0-100.0) fL MCH 29.7 (25.0-35.0) pg MCHC 34.1 (31.0-37.0) g/dL RDW 13.5 (11.5-15.5) % Plt Count 432 (150-450) k/uL MPV 7.7 Neutrophils % 67 % Lymphocytes % 25 % Monocytes % 5 % Eosinophils % 2 % Basophils % 0 % Neutrophils # 8.2 H (1.3-7.7) k/uL Lymphocytes # 3.0 (1.0-4.8) k/uL Monocytes # 0.6 (0-1.0) k/uL Eosinophils # 0.2 (0-0.7) k/uL Basophils # 0.1 (0-0.2) k/uL Sodium 138 (137-145) mmol/L Potassium 4.4 (3.5-5.1) mmol/L Chloride 108 H (98-107) mmol/L Carbon Dioxide 23 (22-30) mmol/L Anion Gap 7 mmol/L BUN 19 H (7-17) mg/dL Creatinine 0.57 (0.52-1.04) mg/dL Est GFR (CKD-EPI)AfAm >90 (>60 ml/min/1.73 sqM) Est GFR (CKD-EPI)NonAf >90 (>60 ml/min/1.73 sqM) Glucose 138 H (74-99) mg/dL Calcium 8.8 (8.4-10.2) mg/dL Total Bilirubin 0.7 (0.2-1.3) mg/dL AST 41 H (14-36) U/L ALT 43 H (4-34) U/L Alkaline Phosphatase 96 (38-126) U/L Total Protein 6.1 L (6.3-8.2) g/dL Albumin 3.4 L (3.5-5.0) g/dL Disposition Clinical Impression: Hip dislocation, left Disposition: HOME SELF-CARE Condition: Good Instructions (If sedation given, give patient instructions): Hip Dislocation (ED) Is patient prescribed a controlled substance at d/c from ED?: No Referrals: Sheng Caballero MD [Medical Doctor] - 1-2 days Time of Disposition: 16:24
[2022-11-21 13:56] LABS: Basophils # (A) 0.1 k/uL (0-0.2); Basophils % (A) 0 %; Eosinophils # (A) 0.2 k/uL (0-0.7); Eosinophils % (A) 2 %; HCT 36.5 % (34.0-46.0); HGB 12.5 gm/dL (11.4-16.0); Lymphocytes % (A) 25 %; MCH 29.7 pg (25.0-35.0); MCHC 34.1 g/dL (31.0-37.0); MCV 87.1 fL (80.0-100.0); Mean Platelet Volume 7.7; Monocytes # (A) 0.6 k/uL (0-1.0); Monocytes % (A) 5 %; Neutrophils # (A) 8.2 k/uL (1.3-7.7); Neutrophils % (A) 67 %; Platelet Count 432 k/uL (150-450); RBC 4.19 m/uL (3.80-5.40); RDW 13.5 % (11.5-15.5); WBC 12.2 k/uL (3.8-10.6)
[2022-11-21 13:58] LABS: ALT 43 U/L (4-34); African American GFR (CKD) >90 (>60 ml/min/1.73 sqM); Albumin 3.4 g/dL (3.5-5.0); Anion Gap 7 mmol/L; Blood Urea Nitrogen 19 mg/dL (7-17); Calcium 8.8 mg/dL (8.4-10.2); Carbon Dioxide 23 mmol/L (22-30); Chloride 108 mmol/L (98-107); Glucose 138 mg/dL (74-99); Non-African American GFR(CKD) >90 (>60 ml/min/1.73 sqM); Sodium 138 mmol/L (137-145); Total Bilirubin 0.7 mg/dL (0.2-1.3); Total Protein 6.1 g/dL (6.3-8.2)
[2022-11-21 14:00] LABS: AST 41 U/L (14-36); Alkaline Phosphatase 96 U/L (38-126); Potassium 4.4 mmol/L (3.5-5.1)
--- NOTE | 2022-11-21 14:11 | XR ---
EXAMINATION TYPE: XR Hip LT and AP Pelvis DATE OF EXAM: 11/21/2022 2:04 PM INDICATION: Patient age:Female; 77 years old; Reason for study: Nontraumatic; COMPARISON: None. TECHNIQUE: The left hip was examined in the frontal and lateral projections FINDINGS: Superior left hip dislocation of the patient's hemiarthroplasty.. No definite evidence for fracture. IMPRESSION: 1. Left hip arthroplasty dislocation. 2. No evidence of fracture.
[2022-11-21] MEDS ORDERED: SODIUM CHLORIDE 0.9% 500 ML 500 ML IV ONE (14:15)
[2022-11-21] MEDS ORDERED: PROPOFOL 10 MG/ML 20 ML VIAL IV ONE (14:58)
--- NOTE | 2022-11-21 15:30 | XR ---
EXAMINATION TYPE: XR Hip Limited LT DATE OF EXAM: 11/21/2022 COMPARISON: 11/21/2022 HISTORY: Post reduction TECHNIQUE: AP view left hip FINDINGS: Femoral prosthesis is present. Femoral prosthetic head articulates with the acetabulum. IMPRESSION: 1. No acute fractures post reduction.
[2022-11-21 16:27] VITALS: RESP 18
[2022-11-21 18:43] VITALS: BP 137/74; PULSE 81; TEMP 98.4
== END 2022-11-21 19:45 | disposition home or self-care (01) ==
LOC: EC 13:34
DX: S73.005A Unspecified dislocation of left hip, initial encounter (principal); T84.021A Dislocation of internal left hip prosthesis, initial encounter; I11.9 Hypertensive heart disease without heart failure; I25.10 Atherosclerotic heart disease of native coronary artery without angina pectoris; E78.5 Hyperlipidemia, unspecified; E07.9 Disorder of thyroid, unspecified; Z87.891 Personal history of nicotine dependence; Z79.85 Long-term (current) use of injectable non-insulin antidiabetic drugs; Z79.890 Hormone replacement therapy; Z79.899 Other long term (current) drug therapy; Z79.01 Long term (current) use of anticoagulants; Z91.048 Other nonmedicinal substance allergy status; Z91.018 Allergy to other foods; X50.0XXA Overexertion from strenuous movement or load, initial encounter
CPT/HCPCS: 99285 ×2; 99152 ×2; 99153 ×2; 27265 ×2; 36415; 80053; 85025; 73501; 73502; J2704

== ENCOUNTER 2023-09-27 19:56 | Inpatient (IN) | payer MEDICARE ==
[2023-09-27] MEDS ORDERED: SODIUM CHLORIDE 0.9% 500 ML 500 ML IV STA (21:07)
[2023-09-27 21:24] LABS: Basophils # (A) 0.1 k/uL (0-0.2); Basophils % (A) 0 %; Eosinophils # (A) 0.1 k/uL (0-0.7); Eosinophils % (A) 1 %; HCT 46.9 % (34.0-46.0); HGB 14.3 gm/dL (11.4-16.0); Hypochromasia Moderate; Lymphocytes # (A) 3.9 k/uL (1.0-4.8); Lymphocytes % (A) 21 %; MCH 28.1 pg (25.0-35.0); MCHC 30.4 g/dL (31.0-37.0); MCV 92.5 fL (80.0-100.0); Mean Platelet Volume 9.2; Monocytes # (A) 0.6 k/uL (0-1.0); Monocytes % (A) 3 %; Neutrophils # (A) 13.4 k/uL (1.3-7.7); Neutrophils % (A) 73 %; Platelet Count 305 k/uL (150-450); RBC 5.07 m/uL (3.80-5.40); RDW 14.5 % (11.5-15.5); WBC 18.3 k/uL (3.8-10.6)
--- NOTE | 2023-09-27 21:31 | ED ---
General Adult HPI - General Chief complaint: Altered Mental Status Stated complaint: Abn Labs Time Seen by Provider: 09/27/23 21:03 Source: EMS Mode of arrival: EMS - History of Present Illness Initial comments: Dictation was produced using [employer] dictation software. please excuse any grammatical, word or spelling errors. Chief Complaint: 78-year-old female with past medical history dementia presents to the ER for hypernatremia and lethargy History of Present Illness: 78-year-old female presents to the emergency for for hypernatremia and lethargy. EMS who provides report states that there was no concern about patient's mentation. She is allegedly alert and oriented 1. She is debilitated. Supa patient more lethargic than usual. snf d ocumentation shows the patient is DO NOT RESUSCITATE Unable to obtain ROS secondary to mental status - Related Data Home Medications Medication Instructions Recorded Confirmed Aspirin EC [Ecotrin Low Dose] 81 mg PO DAILY@1700 04/26/17 09/27/23 Nitroglycerin Sl Tabs [Nitrostat] 0.4 mg SL Q5M PRN 04/26/17 09/27/23 Vit C/E/Zn/Coppr/Lutein/Zeaxan 1 cap PO BID@0800,1700 04/26/17 09/27/23 [Preservision Areds 2 Softgel] atenoloL [Tenormin] 25 mg PO DAILY@0800 04/26/17 09/27/23 Memantine [Namenda] 10 mg PO BID@0800,1700 03/21/18 09/27/23 Calcium Carb/Magnesium Hydrox 1 - 2 tab PO DAILY PRN 10/29/22 09/27/23 [Rolaids Ultra 1000-200 mg Chew] Donepezil [Aricept] 10 mg PO DAILY@0800 10/29/22 09/27/23 Isosorbide Mononitrate ER [Imdur] 15 mg PO HS 10/29/22 09/27/23 Rosuvastatin [Crestor] 10 mg PO DAILY@0800 10/29/22 09/27/23 HYDROcodone/APAP 5-325MG [Sabula 1 tab PO Q6H PRN 11/21/22 09/27/23 5-325] Magnesium Hydroxide [Milk of 7,200 mg PO Q2D PRN 11/21/22 09/27/23 Magnesia Concentrate] Magnesium Oxide [Magox 400] 400 mg PO DAILY@1700 11/21/22 09/27/23 Na Phos,M-B/Na Phos,Di-Ba [Fleet 133 ml RECTAL DAILY PRN 11/21/22 09/27/23 Adult] bisacodyL [Dulcolax] 10 mg RECTAL DAILY PRN 11/21/22 09/27/23 Ammonium Lactate Cream [Lac-Hydrin 1 applic TOPICAL DAILY 09/27/23 09/27/23 12% Cream] Baclofen 5 mg PO TID PRN 09/27/23 09/27/23 Cefuroxime [Ceftin] 250 mg PO BID@0800,1700 09/27/23 09/27/23 Cetirizine HCl [Zyrtec] 10 mg PO DAILY@0800 09/27/23 09/27/23 Ensure Enlive 237 ml PO TID@0800,1200,1700 09/27/23 09/27/23 Famotidine [Pepcid] 20 mg PO DAILY@0700 09/27/23 09/27/23 Ipratropium-Albuterol Nebulize 3 ml INHALATION RT-Q6H PRN 09/27/23 09/27/23 [Duoneb 0.5 mg-3 mg/3 ml Soln] Levothyroxine Sodium [Synthroid] 100 mcg PO DAILY@0700 09/27/23 09/27/23 Levothyroxine Sodium [Synthroid] 125 mcg PO DAILY@0700 09/27/23 09/27/23 Oyster-Calcium/Vitamin D3 1 tab PO DAILY@1700 09/27/23 09/27/23 500mg/200unit Tab Sennosides [Senokot] 17.2 mg PO BID@0800,1700 09/27/23 09/27/23 polyethylene glycoL 3350 [Miralax] 17 gm PO DAILY@0800 09/27/23 09/27/23 Allergies Allergy/AdvReac Type Severity Reaction Status Date / Time cat dander Allergy Unknown Verified 09/27/23 20:58 dog dander Allergy Unknown Verified 09/27/23 20:58 estrella Allergy Unknown Verified 09/27/23 20:58 perfume Allergy Anaphylaxis Verified 09/27/23 20:58 pollen extracts Allergy Unknown Verified 09/27/23 20:58 wool Allergy Unknown Verified 09/27/23 20:58 gluten AdvReac Abdominal Verified 09/27/23 20:58 Pain dust Allergy Unknown Uncoded 09/27/23 20:58 smoke Allergy Unknown Uncoded 09/27/23 20:58 Review of Systems ROS Statement: Those systems with pertinent positive or pertinent negative responses have been documented in the HPI. ROS Other: All systems not noted in ROS Statement are negative. Past Medical History Past Medical History: Coronary Artery Disease (CAD), Chest Pain / Angina, Fibromyalgia, Hyperlipidemia, Hypertension, Memory Impairment, Thyroid Disorder Additional Past Medical History / Comment(s): CARDIOLOGY H & P BY DR. HIRSCH. Angina, RT EYE MACULAR DEGENERATION, OCCASSIONAL "HEARTBURN" History of Any Multi-Drug Resistant Organisms: None Reported Past Surgical History: Back Surgery, Heart Catheterization, Hysterectomy Additional Past Surgical History / Comment(s): thyroidectomy, OLIVERIO CATARACT Past Anesthesia/Blood Transfusion Reactions: No Reported Reaction Additional Past Anesthesia/Blood Transfusion Reaction / Comment(s): CLAUSTERPHOBIA Past Psychological History: No Psychological Hx Reported Smoking Status: Former smoker Past Alcohol Use History: Rare Past Drug Use History: None Reported - Past Family History Mother Family Medical History: Coronary Artery Disease (CAD) Additional Family Medical History / Comment(s): HEART PROBLEMS Father Family Medical History: Cancer Additional Family Medical History / Comment(s): LUNG CANCER General Exam - General Exam Comments Initial Comments: PHYSICAL EXAM: General Impression: Does not follow commands, not in acute distress HEENT: Normocephalic atraumatic, extra-ocular movements intact, pupils equal and reactive to light bilaterally, mucous membranes moist. Cardiovascular: Heart regular rate and rhythm Chest: Able to complete full sentences, no retractions, no tachypnea Abdomen: abdomen soft, some grimacing with palpation to the abdomen, non- distended, no organomegaly Musculoskeletal: Pulses present and equal in all extremities, no peripheral edema Motor: no focal deficits noted Neurological: CN II-XII grossly intact, no focal motor or sensory deficits noted Skin: Intact with no visualized rashes Course Vital Signs 09/27/23 09/27/23 09/27/23 19:57 21:15 21:53 Temperature 98.9 F Pulse Rate 103 H 102 H Respiratory 18 14 18 Rate Blood Pressure 118/87 114/95 123/67 O2 Sat by Pulse 95 93 L 92 L Oximetry 09/27/23 09/27/23 09/28/23 22:27 23:49 01:42 Temperature 101.4 F H 99.1 F Pulse Rate 104 H 108 H 93 Respiratory 18 15 14 Rate Blood Pressure 100/78 98/66 102/77 O2 Sat by Pulse 93 L 96 Oximetry 09/28/23 04:58 Temperature 98.8 F Pulse Rate 86 Respiratory 15 Rate Blood Pressure 115/75 O2 Sat by Pulse 94 L Oximetry Medical Decision Making - Medical Decision Making Was pt. sent in by a medical professional or institution (, PA, COMMERCIAL LOAN UNDERWRITER, urgent care, hospital, or jail...) When possible be specific @ -No Did you speak to anyone other than the patient for history (EMS, parent, family, police, friend...)? What history was obtained from this source @ -No Did you review nursing and triage notes (agree or disagree)? Why? @ -I reviewed and agree with nursing and triage notes Were old charts reviewed (outside hosp., previous admission, EMS record, old EKG, old radiological studies, urgent care reports/EKG's, jail records)? Report findings @ -No old charts were reviewed Differential Diagnosis (chest pain, altered mental status, abdominal pain women, abdominal pain men, vaginal bleeding, musculoskeletal, weakness, fever, dyspnea, syncope, headache, dizziness, GI bleed, back pain, seizure, CVA, palpatations, mental health)? @ -Differential Abdominal Pain Women: Appendicitis, Cholecystitis, diverticulosis, ischemic bowel, pancreatitis, hepatitis, UTI, gastroenteritis, AAA, incarcerated hernia, bowel obstruction, constipation, inflammatory bowel, hepatitis, peptic ulcer disease, splenic infarction, perforated viscus, vulvitis, ovarian torsion, PID, kidney stone, placenta abruption, this is not meant to be an all-inclusive list EKG interpreted by me (3pts min.). @ - X-rays interpreted by me (1pt min.). @ -X-rays not acute CT interpreted by me (1pt min.). @ -CT Scan of brain is nonacute. Computed tomography scan of the abdomen and pelvis shows obstructing UVJ kidney stone at 6 mm with hydronephrosis. Patient also has left basilar consolidation. U/S interpreted by me (1pt. min.). @ -None done What testing was considered but not performed or refused? (CT, X-rays, U/S, labs)? Why? @ -None What meds were considered but not given or refused? Why? @ -None Did you discuss the management of the patient with other professionals (professionals i.e. , PA, COMMERCIAL LOAN UNDERWRITER, lab, RT, psych nurse, sr. social media & mobile manager, director dance, teacher, personnel training officer, family independence case manager)? Give summary @ -No Was smoking cessation discussed for >3mins.? @ -No Was critical care preformed (if so, how long)? @ -No Were there social determinants of health that impacted care today? How? (Homelessness, low income, unemployed, alcoholism, drug addiction, transportation, low edu. Level, literacy, decrease access to med. care, nursing home, rehab)? @ -No Was there de-escalation of care discussed even if they declined (Discuss DNR or withdrawal of care, Hospice)? DNR status @ -No What co-morbidities impacted this encounter? (DM, HTN, Smoking, COPD, CAD, Cancer, CVA, ARF, Chemo, Hep., AIDS, mental health diagnosis, sleep apnea, morbid obesity)? @ -None Was patient admitted / discharged? Hospital course, mention meds given and route, prescriptions, significant lab abnormalities, going to OR and other pertinent info. @ -78-year-old female sent to emergency department for hyponatremia and lethargy. Her sodium level today is 166. Patient is leukocytosis of 18.3. Lactic acidosis 2.5. Urinalysis consistent with urinary tract infection. CT imaging shows right-sided kidney stone. His concern of septic urinary stone. Case discussed with urology for recommendations and hospitalist for admission patient given antibiotics. Patient given IV fluids. Undiagnosed new problem with uncertain prognosis? @ -No Drug Therapy requiring intensive monitoring for toxicity (Heparin, Nitro, Insulin, Cardizem)? @ -No Were any procedures done? @ -No Diagnosis/symptom? Acute, or Chronic, or Acute on Chronic? Uncomplicated (without systemic symptoms) or Complicated (systemic symptoms)? @ -UTI, hypernatremia Side effects of treatment? @ -No Exacerbation, Progression, or Severe Exacerbation? @ -No Poses a threat to life or bodily function? How? (Chest pain, USA, MS, pneumonia, PE, COPD, DKA, ARF, appy, cholecystitis, CVA, Diverticulitis, Homicidal, Suicidal, threat to staff... and all critical care pts) @ -yes - Lab Data Result diagrams: 09/27/23 21:08 09/27/23 21:08 Lab Results 09/27/23 09/27/23 09/27/23 Range/Units 21:08 21:08 21:11 WBC 18.3 H (3.8-10.6) k/uL RBC 5.07 (3.80-5.40) m/uL Hgb 14.3 (11.4-16.0) gm/dL Hct 46.9 H (34.0-46.0) % MCV 92.5 (80.0-100.0) fL MCH 28.1 (25.0-35.0) pg MCHC 30.4 L (31.0-37.0) g/dL RDW 14.5 (11.5-15.5) % Plt Count 305 (150-450) k/uL MPV 9.2 Neutrophils % 73 % Lymphocytes % 21 % Monocytes % 3 % Eosinophils % 1 % Basophils % 0 % Neutrophils # 13.4 H (1.3-7.7) k/uL Lymphocytes # 3.9 (1.0-4.8) k/uL Monocytes # 0.6 (0-1.0) k/uL Eosinophils # 0.1 (0-0.7) k/uL Basophils # 0.1 (0-0.2) k/uL Hypochromasia Moderate Sodium 166 H* (137-145) mmol/L Potassium 4.3 (3.5-5.1) mmol/L Chloride 130 H (98-107) mmol/L Carbon Dioxide 24 (22-30) mmol/L Anion Gap 12 mmol/L BUN 44 H (7-17) mg/dL Creatinine 1.10 H (0.52-1.04) mg/dL Est GFR (CKD-EPI)AfAm 56 (>60 ml/min/1.73 sqM) Est GFR (CKD-EPI)NonAf 49 (>60 ml/min/1.73 sqM) Glucose 112 H (74-99) mg/dL Lactic Ac Sepsis Rflx Plasma Lactic Acid [place] 2.5 H* (0.7-2.0) mmol/L Calcium 9.2 (8.4-10.2) mg/dL Magnesium 3.3 H (1.6-2.3) mg/dL Total Bilirubin 0.5 (0.2-1.3) mg/dL AST 55 H (14-36) U/L ALT 54 H (4-34) U/L Alkaline Phosphatase 96 (38-126) U/L Total Protein 6.8 (6.3-8.2) g/dL Albumin 3.5 (3.5-5.0) g/dL Lipase 113 (23-300) U/L Urine Color Urine Appearance (Clear) Urine pH (5.0-8.0) Ur Specific [place] (1.001-1.035) Urine Protein (Negative) Urine Glucose (UA) (Negative) Urine Ketones (Negative) Urine Blood (Negative) Urine Nitrite (Negative) Urine Bilirubin (Negative) Urine Urobilinogen (<2.0) mg/dL Ur Leukocyte Esterase (Negative) Urine RBC (0-5) /hpf Urine WBC (0-5) /hpf Urine Mucus (None) /hpf 09/27/23 09/28/23 09/28/23 Range/Units 22:53 00:57 04:11 WBC (3.8-10.6) k/uL RBC (3.80-5.40) m/uL Hgb (11.4-16.0) gm/dL Hct (34.0-46.0) % MCV (80.0-100.0) fL MCH (25.0-35.0) pg MCHC (31.0-37.0) g/dL RDW (11.5-15.5) % Plt Count (150-450) k/uL MPV Neutrophils % % Lymphocytes % % Monocytes % % Eosinophils % % Basophils % % Neutrophils # (1.3-7.7) k/uL Lymphocytes # (1.0-4.8) k/uL Monocytes # (0-1.0) k/uL Eosinophils # (0-0.7) k/uL Basophils # (0-0.2) k/uL Hypochromasia Sodium (137-145) mmol/L Potassium (3.5-5.1) mmol/L Chloride (98-107) mmol/L Carbon Dioxide (22-30) mmol/L Anion Gap mmol/L BUN (7-17) mg/dL Creatinine (0.52-1.04) mg/dL Est GFR (CKD-EPI)AfAm (>60 ml/min/1.73 sqM) Est GFR (CKD-EPI)NonAf (>60 ml/min/1.73 sqM) Glucose (74-99) mg/dL Lactic Ac Sepsis Rflx Y Plasma Lactic Acid [place] 1.9 (0.7-2.0) mmol/L Calcium (8.4-10.2) mg/dL Magnesium (1.6-2.3) mg/dL Total Bilirubin (0.2-1.3) mg/dL AST (14-36) U/L ALT (4-34) U/L Alkaline Phosphatase (38-126) U/L Total Protein (6.3-8.2) g/dL Albumin (3.5-5.0) g/dL Lipase (23-300) U/L Urine Color Yellow Urine Appearance Clear (Clear) Urine pH 8.0 (5.0-8.0) Ur Specific [place] 1.018 (1.001-1.035) Urine Protein 1+ H (Negative) Urine Glucose (UA) Negative (Negative) Urine Ketones Negative (Negative) Urine Blood Small H (Negative) Urine Nitrite Positive H (Negative) Urine Bilirubin Negative (Negative) Urine Urobilinogen <2.0 (<2.0) mg/dL Ur Leukocyte Esterase Large H (Negative) Urine RBC 30 H (0-5) /hpf Urine WBC 109 H (0-5) /hpf Urine Mucus Occasional H (None) /hpf Disposition Clinical Impression: Hypernatremia Disposition: ADMITTED IP TO THIS HOSP Condition: Serious Referrals: Sheng Caballero MD [Primary Care Provider] - 1-2 days Decision Time: 06:07
[2023-09-27 21:41] LABS: ALT 54 U/L (4-34); AST 55 U/L (14-36); African American GFR (CKD) 56 (>60 ml/min/1.73 sqM); Albumin 3.5 g/dL (3.5-5.0); Alkaline Phosphatase 96 U/L (38-126); Anion Gap 12 mmol/L; Blood Urea Nitrogen 44 mg/dL (7-17); Calcium 9.2 mg/dL (8.4-10.2); Carbon Dioxide 24 mmol/L (22-30); Chloride 130 mmol/L (98-107); Glucose 112 mg/dL (74-99); Lipase 113 U/L (23-300); Magnesium 3.3 mg/dL (1.6-2.3); Non-African American GFR(CKD) 49 (>60 ml/min/1.73 sqM); Potassium 4.3 mmol/L (3.5-5.1); Total Bilirubin 0.5 mg/dL (0.2-1.3); Total Protein 6.8 g/dL (6.3-8.2)
--- NOTE | 2023-09-27 21:51 | CT ---
EXAMINATION TYPE: CT brain wo con CT DLP: 1069.5 mGycm, Automated exposure control for dose reduction was used. DATE OF EXAM: 09/27/2023 9:39 PM COMPARISON: 10/29/2022. CLINICAL INDICATION:Female, 78 years old with history of ams, Pt arrives from [facility] for c/o critica l sodium 169 baseline, pt alert to self, pt has increased lethargy. TECHNIQUE: Brain: Axial CT images of the brain were obtained with coronal and sagittal reformats created and rev iewed. Contrast used: None. Oral contrast used: None. FINDINGS: Brain: Extra-axial spaces: No abnormal extra-axial fluid collections. Ventricular system: Dilatation in proportion to cerebral atrophy. Cerebral parenchyma: Cerebral atrophy. No acute intraparenchymal hemorrhage or mass effect. The guzman -white junction is well differentiated. Scattered hypoattenuating areas are seen within the white mat ter. Mesial temporal lobe atrophy changes bilaterally. Cerebellum: Unremarkable. Mass effect: No evidence of midline shift. Intracranial vasculature: Atherosclerotic calcifications of the intracranial vessels. Soft tissues: Normal. Calvarium/osseous structures: No depressed skull fracture. Paranasal sinuses and mastoid air cells: Mild scattered paranasal sinus disease. Visualized orbits: Bilateral aphakia IMPRESSION: No acute intracranial process. Similar dilation of the ventricles with cerebral atrophy. Nonspecific white matter changes, likely secondary to chronic small vessel ischemic disease.
--- NOTE | 2023-09-27 21:54 | XR ---
EXAMINATION TYPE: XR chest 1V portable DATE OF EXAM: 09/27/2023 9:41 PM CLINICAL INDICATION:Female, 78 years old with history of ams; COMPARISON: Chest radiographs from 11/17/2022. TECHNIQUE: XR chest 1V portable Frontal view of the chest. FINDINGS: Lungs/Pleura: There is no evidence of pleural effusion, focal consolidation, or pneumothorax. Pulmonary vascularity: Unremarkable. Heart/mediastinum: Cardiomediastinal silhouette is unremarkable. Musculoskeletal: No acute osseous pathology. Other findings: None IMPRESSION: 1. No acute cardiopulmonary disease/process. 2. Chronic interstitial changes are unchanged.
[2023-09-27] MEDS ORDERED: ACETAMINOPHEN IV (For NPO) 1,000 MG in EMPTY BAG 1 BAG IVPB STA (22:29)
[2023-09-27] MEDS ORDERED: PIPERACILLIN-TAZOBACTAM 3.375 GM in SODIUM CHLORIDE 0.9% 100 ML IVPB STA (22:33)
[2023-09-27 23:31] LABS: Appearance,Urine Clear (Clear); Bilirubin,Urine Negative (Negative); Blood,Urine Small (Negative); Color,Urine Yellow; Glucose,Urine (UA) Negative (Negative); Ketones,Urine Negative (Negative); Leukocyte Esterase,Urine Large (Negative); Mucus,Urine Occasional /hpf; Nitrite,Urine Positive (Negative); Protein,Urine 1+ (Negative); RBC,Urine 30 /hpf (0-5); Specific Gravity,Urine 1.018 (1.001-1.035); Urobilinogen,Urine <2.0 mg/dL (<2.0); WBC,Urine 109 /hpf (0-5)
[2023-09-28 00:54] LABS: Sodium 166 mmol/L (137-145)
[2023-09-28] MEDS ORDERED: SODIUM CHLORIDE 0.9% 1,000 ML IV STA (04:35)
--- NOTE | 2023-09-28 05:29 | CT ---
EXAMINATION TYPE: CT abdomen pelvis w con DATE OF EXAM: 09/28/2023 HISTORY: Fever and abdominal pain. CT DLP: 549.9mGycm Automated Exposure Control for Dose Reduction was Utilized. CONTRAST: CT scan of the abdomen and pelvis is performed without oral and with IV Contrast, patient injected wi th 80 mL of Isovue 300. COMPARISON: None. FINDINGS: LUNG BASES: Consolidation with air bronchograms in the posterior left lung base is present. LIVER/GB: No significant abnormality is appreciated. PANCREAS: Mild generalized atrophy in the pancreatic head and uncinate process. SPLEEN: Numerous round calcifications throughout the spleen consistent with product of old granulomat ous disease is present. ADRENALS: No significant abnormality is seen. KIDNEYS: Left kidney has asymmetric cortical thinning. Symmetric cortical medullary uptake and excret ion is seen. No left-sided hydronephrosis. There is 6 mm calculus at the right UVJ axial image 85 cau sing moderate right-sided hydronephrosis. Nondependent air in the urinary bladder is seen. BOWEL: A few diverticula in the sigmoid colon are present. No CT evidence for acute diverticulitis. N ormal-appearing appendix. No abnormal small or large bowel dilatation UTERUS/ADNEXA: Uterus is surgically absent. LYMPH NODES: No greater than 1cm abdominal or pelvic lymph nodes are appreciated. OSSEOUS STRUCTURES: Metallic hardware from left hip arthroplasty causes streak artifact somewhat limi ting evaluation of pelvic structures. Several bilateral laminectomy defects with spinous process rese ction in the mid to lower lumbar spine is seen OTHER: Mild to moderate calcified plaque of the aorta extends into branch vessels. Tiny fat-containin g umbilical hernia sagittal image 78. IMPRESSION: 1. There is 6 mm calculus at right UVJ causing moderate right sided hydronephrosis. No delayed excret ion is seen. 2. Nondependent air in urinary bladder, correlate for recent Joyce catheterization otherwise other et iologies such as gas-forming infection need to be considered. 3. Focal posterior left basilar consolidation with air bronchograms, correlate for possible pneumonia . 4. No well-formed fluid collection or abscess is seen.
[2023-09-28] MEDS ORDERED: NALOXONE 0.4 MG/ML 1 ML VIAL IV PRN (06:04)
--- NOTE | 2023-09-28 07:59 | P.HPIM ---
History of Present Illness Patient is a 78-year-old female with known history of advanced dementia and alert oriented 1 at baseline was brought in because of increasing lethargy and increasing confusion for from her baseline and found to have severe dehydration and hyponatremia subsequently admitted with IV fluids that is normal saline which is presently being switched to D5 water. I'm unable to get any kind of history from the patient patient the is not febrile but does have leukocytosis of 18,000 white blood cell count. Urinalysis is significant for a highly elevated RBC and a PVC although patient is found to have a 6 mm renal calculus, and right-sided UVJ junction. CT of the abdomen did show hydronephrosis and some bilateral lower lobe infiltrates may be atelectasis. Patient is presently on Zosyn and unable to provide any kind of history to me although patient is arousable, drowsy. Review of systems: Unable to obtain any review of systems because of her clinical condition PHYSICAL EXAMINATION: GENERAL: Patient appears to be extremely dehydrated with dry mucous membranes drowsy arousable HEENT: Pupils are round and equally reacting to light. EOMI. No scleral icterus. No conjunctival pallor. Normocephalic, atraumatic. No pharyn geal erythema. No thyromegaly. CARDIOVASCULAR: S1 and S2 present. No murmurs, rubs, or gallops. PULMONARY: Chest is clear to auscultation, no wheezing or crackles. ABDOMEN: Limited assessment there may be some tenderness in the right lower abdomen CVA tenderness is not appreciable nondistended, normoactive bowel sounds. No palpable organomegaly. MUSCULOSKELETAL: No joint swelling or deformity. EXTREMITIES: No cyanosis, clubbing, or pedal edema. NEUROLOGICAL: Unable to assess SKIN: No rashes. Assessment and plan -Acute metabolic encephalopathy is secondary to severe dehydration and hypo natremia: Patient has a serum sodium of 166, IV normal saline will be discontinue and patient was started on D5 water -Toxic encephalopathy cannot be ruled out, I cannot rule out a urinary tract infection and possibility of pneumonia as well,continue Zosyn at this time. -Right-sided renal calculus with hydronephrosis: Neurology was consulted for this and hematuria is secondary to renal stone and increased white blood cell count can be secondary to that as well -Advanced dementia: Etiology of dementia is not known probably vascular dementia, from the history obtain from the nursing staff it appears patient dementia is advanced and probably a good candidate for hospice. Need to discuss overall goals of care with the family -Acute renal failure: Secondary to prerenal azotemia with dehydration mostly. -Possible urinary obstruction and retention from: Will order bladder scan -Leukocytosis possibly of sepsis cannot be ruled out antibiotics as mentioned above -Mild nonspecific elevation of AST and ALT are transaminitis secondary to sepsis -Coronary artery disease -hyperlipidemia -Hypertension -Hypothyroidism Patient cannot to take anything by mouth because of her mental status holding of all noncritical home medications. Due to prophylaxis: Subcutaneous heparin Past Medical History Past Medical History: Coronary Artery Disease (CAD), Chest Pain / Angina, Fibromyalgia, Hyperlipidemia, Hypertension, Memory Impairment, Thyroid Disorder Additional Past Medical History / Comment(s): CARDIOLOGY H & P BY DR. HIRSCH. Becca gamboa, RT EYE MACULAR DEGENERATION, OCCASSIONAL "HEARTBURN" History of Any Multi-Drug Resistant Organisms: None Reported Past Surgical History: Back Surgery, Heart Catheterization, Hysterectomy Additional Past Surgical History / Comment(s): thyroidectomy, OLIVERIO CATARACT Past Anesthesia/Blood Transfusion Reactions: No Reported Reaction Additional Past Anesthesia/Blood Transfusion Reaction / Comment(s): CLAUSTERPHOBIA Past Psychological History: No Psychological Hx Reported Smoking Status: Former smoker Past Alcohol Use History: Rare Past Drug Use History: None Reported - Past Family History Mother Family Medical History: Coronary Artery Disease (CAD) Additional Family Medical History / Comment(s): HEART PROBLEMS Father Family Medical History: Cancer Additional Family Medical History / Comment(s): LUNG CANCER Medications and Allergies Home Medications Medication Instructions Recorded Confirmed Type Aspirin EC [Ecotrin Low Dose] 81 mg PO DAILY@1700 04/26/17 09/27/23 History Nitroglycerin Sl Tabs [Nitrostat] 0.4 mg SL Q5M PRN 04/26/17 09/27/23 History Vit C/E/Zn/Coppr/Lutein/Zeaxan 1 cap PO BID@0800,1700 04/26/17 09/27/23 History [Preservision Areds 2 Softgel] atenoloL [Tenormin] 25 mg PO DAILY@0800 04/26/17 09/27/23 History Memantine [Namenda] 10 mg PO BID@0800,1700 03/21/18 09/27/23 History Calcium Carb/Magnesium Hydrox 1 - 2 tab PO DAILY PRN 10/29/22 09/27/23 History [Rolaids Ultra 1000-200 mg Chew] Donepezil [Aricept] 10 mg PO DAILY@0800 10/29/22 09/27/23 History Isosorbide Mononitrate ER [Imdur] 15 mg PO HS 10/29/22 09/27/23 History Rosuvastatin [Crestor] 10 mg PO DAILY@0800 10/29/22 09/27/23 History HYDROcodone/APAP 5-325MG [[place] 1 tab PO Q6H PRN 11/21/22 09/27/23 History 5-325] Magnesium Hydroxide [Milk of 7,200 mg PO Q2D PRN 11/21/22 09/27/23 History Magnesia Concentrate] Magnesium Oxide [Magox 400] 400 mg PO DAILY@1700 11/21/22 09/27/23 History Na Phos,M-B/Na Phos,Di-Ba [Fleet 133 ml RECTAL DAILY PRN 11/21/22 09/27/23 History Adult] bisacodyL [Dulcolax] 10 mg RECTAL DAILY PRN 11/21/22 09/27/23 History Ammonium Lactate Cream [Lac-Hydrin 1 applic TOPICAL DAILY 09/27/23 09/27/23 History 12% Cream] Baclofen 5 mg PO TID PRN 09/27/23 09/27/23 History Cefuroxime [Ceftin] 250 mg PO BID@0800,1700 09/27/23 09/27/23 History Cetirizine HCl [Zyrtec] 10 mg PO DAILY@0800 09/27/23 09/27/23 History Ensure Enlive 237 ml PO TID@0800,1200,1700 09/27/23 09/27/23 History Famotidine [Pepcid] 20 mg PO DAILY@0700 09/27/23 09/27/23 History Ipratropium-Albuterol Nebulize 3 ml INHALATION RT-Q6H PRN 09/27/23 09/27/23 History [Duoneb 0.5 mg-3 mg/3 ml Soln] Levothyroxine Sodium [Synthroid] 100 mcg PO DAILY@0700 09/27/23 09/27/23 History Levothyroxine Sodium [Synthroid] 125 mcg PO DAILY@0700 09/27/23 09/27/23 History Oyster-Calcium/Vitamin D3 1 tab PO DAILY@1700 09/27/23 09/27/23 History 500mg/200unit Tab Sennosides [Senokot] 17.2 mg PO BID@0800,1700 09/27/23 09/27/23 History polyethylene glycoL 3350 [Miralax] 17 gm PO DAILY@0800 09/27/23 09/27/23 History Allergies Allergy/AdvReac Type Severity Reaction Status Date / Time cat dander Allergy Unknown Verified 09/27/23 20:58 dog dander Allergy Unknown Verified 09/27/23 20:58 estrella Allergy Unknown Verified 09/27/23 20:58 perfume Allergy Anaphylaxis Verified 09/27/23 20:58 pollen extracts Allergy Unknown Verified 09/27/23 20:58 wool Allergy Unknown Verified 09/27/23 20:58 gluten AdvReac Abdominal Verified 09/27/23 20:58 Pain dust Allergy Unknown Uncoded 09/27/23 20:58 smoke Allergy Unknown Uncoded 09/27/23 20:58 Physical Exam Vitals: Vital Signs Temp Pulse Resp BP Pulse Ox 09/28/23 06:46 81 14 108/63 94 L 09/28/23 04:58 98.8 F 86 15 115/75 94 L 09/28/23 01:42 93 14 102/77 96 09/27/23 23:49 99.1 F 108 H 15 98/66 93 L 09/27/23 22:27 101.4 F H 104 H 18 100/78 09/27/23 21:53 18 123/67 92 L 09/27/23 21:15 102 H 14 114/95 93 L 09/27/23 19:57 98.9 F 103 H 18 118/87 95 Intake and Output 09/27/23 09/28/23 09/28/23 22:59 06:59 14:59 Output Total 375 Balance -375 Output: Urine 375 Uretheral (Joyce) 250 Other: Weight 83.915 kg Results CBC & Chem 7: 09/27/23 21:08 09/27/23 21:08 Labs: Abnormal Lab Results - Last 24 Hours (Table) 09/27/23 09/27/23 09/27/23 Range/Units 21:08 21:08 21:11 WBC 18.3 H (3.8-10.6) k/uL Hct 46.9 H (34.0-46.0) % MCHC 30.4 L (31.0-37.0) g/dL Neutrophils # 13.4 H (1.3-7.7) k/uL Sodium 166 H* (137-145) mmol/L Chloride 130 H (98-107) mmol/L BUN 44 H (7-17) mg/dL Creatinine 1.10 H (0.52-1.04) mg/dL Glucose 112 H (74-99) mg/dL Plasma Lactic Acid [place] 2.5 H* (0.7-2.0) mmol/L Magnesium 3.3 H (1.6-2.3) mg/dL AST 55 H (14-36) U/L ALT 54 H (4-34) U/L Urine Protein (Negative) Urine Blood (Negative) Urine Nitrite (Negative) Ur Leukocyte Esterase (Negative) Urine RBC (0-5) /hpf Urine WBC (0-5) /hpf Urine Mucus (None) /hpf 09/27/23 Range/Units 22:53 WBC (3.8-10.6) k/uL Hct (34.0-46.0) % MCHC (31.0-37.0) g/dL Neutrophils # (1.3-7.7) k/uL Sodium (137-145) mmol/L Chloride (98-107) mmol/L BUN (7-17) mg/dL Creatinine (0.52-1.04) mg/dL Glucose (74-99) mg/dL Plasma Lactic Acid [place] (0.7-2.0) mmol/L Magnesium (1.6-2.3) mg/dL AST (14-36) U/L ALT (4-34) U/L Urine Protein 1+ H (Negative) Urine Blood Small H (Negative) Urine Nitrite Positive H (Negative) Ur Leukocyte Esterase Large H (Negative) Urine RBC 30 H (0-5) /hpf Urine WBC 109 H (0-5) /hpf Urine Mucus Occasional H (None) /hpf
[2023-09-28] MEDS: PIPERACILLIN-TAZOBACTAM 3.375 GM in SODIUM CHLORIDE 0.9% 100 ML IVPB SCH ×2 (08:13→16:33)
[2023-09-28] MEDS: DEXTROSE 5% IN WATER 1,000 ML IV SCH ×3 (09:03→16:33)
[2023-09-28 10:14] LABS: African American GFR (CKD) 56 (>60 ml/min/1.73 sqM); Anion Gap 10 mmol/L; Blood Urea Nitrogen 41 mg/dL (7-17); Calcium 8.8 mg/dL (8.4-10.2); Carbon Dioxide 22 mmol/L (22-30); Glucose 145 mg/dL (74-99); Magnesium 3.1 mg/dL (1.6-2.3); Non-African American GFR(CKD) 49 (>60 ml/min/1.73 sqM)
[2023-09-28 10:45] LABS: Sodium 166 mmol/L (137-145)
[2023-09-28 10:46] LABS: Chloride 134 mmol/L (98-107)
--- NOTE | 2023-09-28 11:35 | P.GSCN ---
History of Present Illness Consult date: 09/28/23 Reason for Consult: Ureteral stone History of present illness: This is a 78-year-old female with history of advanced dementia presented to the hospital with increased confusion worsened from baseline. Underwent a CT abdomen and pelvis that showed evidence of 5 mm right-sided distal stone. Patient also had a fever 101, which has subsequently resolved. Initial lab work showed hypernatremia with sodium 169. Patient is a limited history was most history was obtained from patient . No previous history of kidney stones. Denies any gross hematuria or dysuria. Review of Systems ROS unobtainable: due to mental status Past Medical History Past Medical History: Coronary Artery Disease (CAD), Chest Pain / Angina, Fibromyalgia, Hyperlipidemia, Hypertension, Memory Impairment, Thyroid Disorder Additional Past Medical History / Comment(s): CARDIOLOGY H & P BY DR. HIRSCH. Angina, RT EYE MACULAR DEGENERATION, OCCASSIONAL "HEARTBURN" History of Any Multi-Drug Resistant Organisms: None Reported Past Surgical History: Back Surgery, Heart Catheterization, Hysterectomy Additional Past Surgical History / Comment(s): thyroidectomy, OLIVERIO CATARACT Past Anesthesia/Blood Transfusion Reactions: No Reported Reaction Additional Past Anesthesia/Blood Transfusion Reaction / Comm: CLAUSTERPHOBIA Past Psychological History: No Psychological Hx Reported Smoking Status: Former smoker Past Alcohol Use History: Rare Past Drug Use History: None Reported - Past Family History Mother Family Medical History: Coronary Artery Disease (CAD) Additional Family Medical History / Comment(s): HEART PROBLEMS Father Family Medical History: Cancer Additional Family Medical History / Comment(s): LUNG CANCER Medications and Allergies Home Medications Medication Instructions Recorded Confirmed Type Aspirin EC [Ecotrin Low Dose] 81 mg PO DAILY@1700 04/26/17 09/27/23 History Nitroglycerin Sl Tabs [Nitrostat] 0.4 mg SL Q5M PRN 04/26/17 09/27/23 History Vit C/E/Zn/Coppr/Lutein/Zeaxan 1 cap PO BID@0800,1700 04/26/17 09/27/23 History [Preservision Areds 2 Softgel] atenoloL [Tenormin] 25 mg PO DAILY@0800 04/26/17 09/27/23 History Memantine [Namenda] 10 mg PO BID@0800,1700 03/21/18 09/27/23 History Calcium Carb/Magnesium Hydrox 1 - 2 tab PO DAILY PRN 10/29/22 09/27/23 History [Rolaids Ultra 1000-200 mg Chew] Donepezil [Aricept] 10 mg PO DAILY@0800 10/29/22 09/27/23 History Isosorbide Mononitrate ER [Imdur] 15 mg PO HS 10/29/22 09/27/23 History Rosuvastatin [Crestor] 10 mg PO DAILY@0800 10/29/22 09/27/23 History HYDROcodone/APAP 5-325MG [[place] 1 tab PO Q6H PRN 11/21/22 09/27/23 History 5-325] Magnesium Hydroxide [Milk of 7,200 mg PO Q2D PRN 11/21/22 09/27/23 History Magnesia Concentrate] Magnesium Oxide [Magox 400] 400 mg PO DAILY@1700 11/21/22 09/27/23 History Na Phos,M-B/Na Phos,Di-Ba [Fleet 133 ml RECTAL DAILY PRN 11/21/22 09/27/23 History Adult] bisacodyL [Dulcolax] 10 mg RECTAL DAILY PRN 11/21/22 09/27/23 History Ammonium Lactate Cream [Lac-Hydrin 1 applic TOPICAL DAILY 09/27/23 09/27/23 History 12% Cream] Baclofen 5 mg PO TID PRN 09/27/23 09/27/23 History Cefuroxime [Ceftin] 250 mg PO BID@0800,1700 09/27/23 09/27/23 History Cetirizine HCl [Zyrtec] 10 mg PO DAILY@0800 09/27/23 09/27/23 History Ensure Enlive 237 ml PO TID@0800,1200,1700 09/27/23 09/27/23 History Famotidine [Pepcid] 20 mg PO DAILY@0700 09/27/23 09/27/23 History Ipratropium-Albuterol Nebulize 3 ml INHALATION RT-Q6H PRN 09/27/23 09/27/23 History [Duoneb 0.5 mg-3 mg/3 ml Soln] Levothyroxine Sodium [Synthroid] 100 mcg PO DAILY@0700 09/27/23 09/27/23 History Levothyroxine Sodium [Synthroid] 125 mcg PO DAILY@0700 09/27/23 09/27/23 History Oyster-Calcium/Vitamin D3 1 tab PO DAILY@1700 09/27/23 09/27/23 History 500mg/200unit Tab Sennosides [Senokot] 17.2 mg PO BID@0800,1700 09/27/23 09/27/23 History polyethylene glycoL 3350 [Miralax] 17 gm PO DAILY@0800 09/27/23 09/27/23 History Allergies Allergy/AdvReac Type Severity Reaction Status Date / Time cat dander Allergy Unknown Verified 09/27/23 20:58 dog dander Allergy Unknown Verified 09/27/23 20:58 estrella Allergy Unknown Verified 09/27/23 20:58 perfume Allergy Anaphylaxis Verified 09/27/23 20:58 pollen extracts Allergy Unknown Verified 09/27/23 20:58 wool Allergy Unknown Verified 09/27/23 20:58 gluten AdvReac Abdominal Verified 09/27/23 20:58 Pain dust Allergy Unknown Uncoded 09/27/23 20:58 smoke Allergy Unknown Uncoded 09/27/23 20:58 Surgical - Exam Vital Signs Temp Pulse Resp BP Pulse Ox 98.9 F 103 H 18 118/87 95 09/27/23 19:57 09/27/23 19:57 09/27/23 19:57 09/27/23 19:57 09/27/23 19:57 - General no distress, no pain - Eyes pale - ENT normal nares, normal mucosa - Respiratory normal expansion, normal respiratory effort - Abdomen Abdomen: soft, non tender, no distended Results - Labs 09/27/23 21:08 09/28/23 09:14 Abnormal Lab Results - Last 24 Hours (Table) 09/27/23 09/27/23 09/27/23 Range/Units 21:08 21:08 21:11 WBC 18.3 H (3.8-10.6) k/uL Hct 46.9 H (34.0-46.0) % MCHC 30.4 L (31.0-37.0) g/dL Neutrophils # 13.4 H (1.3-7.7) k/uL Sodium 166 H* (137-145) mmol/L Chloride 130 H (98-107) mmol/L BUN 44 H (7-17) mg/dL Creatinine 1.10 H (0.52-1.04) mg/dL Glucose 112 H (74-99) mg/dL Plasma Lactic Acid [place] 2.5 H* (0.7-2.0) mmol/L Magnesium 3.3 H (1.6-2.3) mg/dL AST 55 H (14-36) U/L ALT 54 H (4-34) U/L Urine Protein (Negative) Urine Blood (Negative) Urine Nitrite (Negative) Ur Leukocyte Esterase (Negative) Urine RBC (0-5) /hpf Urine WBC (0-5) /hpf Urine Mucus (None) /hpf 09/27/23 09/28/23 Range/Units 22:53 09:14 WBC (3.8-10.6) k/uL Hct (34.0-46.0) % MCHC (31.0-37.0) g/dL Neutrophils # (1.3-7.7) k/uL Sodium 166 H* (137-145) mmol/L Chloride 134 H* (98-107) mmol/L BUN 41 H (7-17) mg/dL Creatinine 1.11 H (0.52-1.04) mg/dL Glucose 145 H (74-99) mg/dL Plasma Lactic Acid [place] (0.7-2.0) mmol/L Magnesium 3.1 H (1.6-2.3) mg/dL AST (14-36) U/L ALT (4-34) U/L Urine Protein 1+ H (Negative) Urine Blood Small H (Negative) Urine Nitrite Positive H (Negative) Ur Leukocyte Esterase Large H (Negative) Urine RBC 30 H (0-5) /hpf Urine WBC 109 H (0-5) /hpf Urine Mucus Occasional H (None) /hpf Diabetes panel 09/27/23 09/28/23 Range/Units 21:08 09:14 Sodium 166 H* 166 H* (137-145) mmol/L Potassium 4.3 4.0 (3.5-5.1) mmol/L Chloride 130 H 134 H* (98-107) mmol/L Carbon Dioxide 24 22 (22-30) mmol/L BUN 44 H 41 H (7-17) mg/dL Creatinine 1.10 H 1.11 H (0.52-1.04) mg/dL Glucose 112 H 145 H (74-99) mg/dL Calcium 9.2 8.8 (8.4-10.2) mg/dL AST 55 H (14-36) U/L ALT 54 H (4-34) U/L Alkaline Phosphatase 96 (38-126) U/L Total Protein 6.8 (6.3-8.2) g/dL Albumin 3.5 (3.5-5.0) g/dL Calcium panel 09/27/23 09/28/23 Range/Units 21:08 09:14 Calcium 9.2 8.8 (8.4-10.2) mg/dL Albumin 3.5 (3.5-5.0) g/dL Pituitary panel 09/27/23 09/28/23 Range/Units 21:08 09:14 Sodium 166 H* 166 H* (137-145) mmol/L Potassium 4.3 4.0 (3.5-5.1) mmol/L Chloride 130 H 134 H* (98-107) mmol/L Carbon Dioxide 24 22 (22-30) mmol/L BUN 44 H 41 H (7-17) mg/dL Creatinine 1.10 H 1.11 H (0.52-1.04) mg/dL Glucose 112 H 145 H (74-99) mg/dL Calcium 9.2 8.8 (8.4-10.2) mg/dL Adrenal panel 09/27/23 09/28/23 Range/Units 21:08 09:14 Sodium 166 H* 166 H* (137-145) mmol/L Potassium 4.3 4.0 (3.5-5.1) mmol/L Chloride 130 H 134 H* (98-107) mmol/L Carbon Dioxide 24 22 (22-30) mmol/L BUN 44 H 41 H (7-17) mg/dL Creatinine 1.10 H 1.11 H (0.52-1.04) mg/dL Glucose 112 H 145 H (74-99) mg/dL Calcium 9.2 8.8 (8.4-10.2) mg/dL Total Bilirubin 0.5 (0.2-1.3) mg/dL AST 55 H (14-36) U/L ALT 54 H (4-34) U/L Alkaline Phosphatase 96 (38-126) U/L Total Protein 6.8 (6.3-8.2) g/dL Albumin 3.5 (3.5-5.0) g/dL Assessment and Plan Assessment: 78-year-old female with advanced dementia, admitted to the hospital with hypernatremia with sodium of 169, and a distal ureteral stone with UTI. She is currently hemodynamically stable. Had a prolonged discussion with the patient's she is at high risk of any type of surgical intervention given her clinical status. Discussed given her stone and UTI I do recommend proceeding with stent insertion but her hypernatremia will need to be resolved prior to proceeding with any surgical intervention. -Nothing by mouth past midnight -Potentially OR tomorrow with a cystoscopy and right stent insertion if hypernatremia resolved. Patient's hemodynamic changes and we'll proceed with stent insertion today
--- NOTE | 2023-09-28 11:46 | P.NPCON ---
History of Present Illness - Reason for Consult hypernatremia - History of Present Illness Reason for consultation: Hypernatremia History of present illness: Patient is a 78-year-old female seen in renal consultation for hypernatremia. Patient's sodium level on admission was 166 last night. Patient was receiving normal saline overnight and was changed over to D5W this morning. Sodium level this morning was stable at 166. Creatinine stable at 1.11. Patient has a history of dementia and presents from [facility]. Patient is not a reliable historian. She is resting in bed and not answering verbal questions. Bladder scans have been negative for urinary retention. She has an external c atheter and is voiding. Hemodynamically stable. I don't see any NSAIDs and her home medication list. Patient did have a temperature of 101.4F this admission. UA suggestive of UTI. On antibiotics. Vital signs are stable. General: No acute distress. HEENT: Head exam is unremarkable. LUNGS: No audible rhonchi or wheezes. HEART: Rate and Rhythm are regular. ABDOMEN: No distention. EXTREMITITES: No edema. Past Medical History Past Medical History: Coronary Artery Disease (CAD), Chest Pain / Angina, Fibromyalgia, Hyperlipidemia, Hypertension, Memory Impairment, Thyroid Disorder Additional Past Medical History / Comment(s): CARDIOLOGY H & P BY DR. HIRSCH. Angina, RT EYE MACULAR DEGENERATION, OCCASSIONAL "HEARTBURN" History of Any Multi-Drug Resistant Organisms: None Reported Past Surgical History: Back Surgery, Heart Catheterization, Hysterectomy Additional Past Surgical History / Comment(s): thyroidectomy, OLIVERIO CATARACT Past Anesthesia/Blood Transfusion Reactions: No Reported Reaction Additional Past Anesthesia/Blood Transfusion Reaction / Comment(s): CLAUSTERPHOBIA Past Psychological History: No Psychological Hx Reported Smoking Status: Former smoker Past Alcohol Use History: Rare Past Drug Use History: None Reported - Past Family History Mother Family Medical History: Coronary Artery Disease (CAD) Additional Family Medical History / Comment(s): HEART PROBLEMS Father Family Medical History: Cancer Additional Family Medical History / Comment(s): LUNG CANCER Medications and Allergies Home Medications Medication Instructions Recorded Confirmed Type Aspirin EC [Ecotrin Low Dose] 81 mg PO DAILY@1700 04/26/17 09/27/23 History Nitroglycerin Sl Tabs [Nitrostat] 0.4 mg SL Q5M PRN 04/26/17 09/27/23 History Vit C/E/Zn/Coppr/Lutein/Zeaxan 1 cap PO BID@0800,1700 04/26/17 09/27/23 History [Preservision Areds 2 Softgel] atenoloL [Tenormin] 25 mg PO DAILY@0800 04/26/17 09/27/23 History Memantine [Namenda] 10 mg PO BID@0800,1700 03/21/18 09/27/23 History Calcium Carb/Magnesium Hydrox 1 - 2 tab PO DAILY PRN 10/29/22 09/27/23 History [Rolaids Ultra 1000-200 mg Chew] Donepezil [Aricept] 10 mg PO DAILY@0800 10/29/22 09/27/23 History Isosorbide Mononitrate ER [Imdur] 15 mg PO HS 10/29/22 09/27/23 History Rosuvastatin [Crestor] 10 mg PO DAILY@0800 10/29/22 09/27/23 History HYDROcodone/APAP 5-325MG [[place] 1 tab PO Q6H PRN 11/21/22 09/27/23 History 5-325] Magnesium Hydroxide [Milk of 7,200 mg PO Q2D PRN 11/21/22 09/27/23 History Magnesia Concentrate] Magnesium Oxide [Magox 400] 400 mg PO DAILY@1700 11/21/22 09/27/23 History Na Phos,M-B/Na Phos,Di-Ba [Fleet 133 ml RECTAL DAILY PRN 11/21/22 09/27/23 History Adult] bisacodyL [Dulcolax] 10 mg RECTAL DAILY PRN 11/21/22 09/27/23 History Ammonium Lactate Cream [Lac-Hydrin 1 applic TOPICAL DAILY 09/27/23 09/27/23 History 12% Cream] Baclofen 5 mg PO TID PRN 09/27/23 09/27/23 History Cefuroxime [Ceftin] 250 mg PO BID@0800,1700 09/27/23 09/27/23 History Cetirizine HCl [Zyrtec] 10 mg PO DAILY@0800 09/27/23 09/27/23 History Ensure Enlive 237 ml PO TID@0800,1200,1700 09/27/23 09/27/23 History Famotidine [Pepcid] 20 mg PO DAILY@0700 09/27/23 09/27/23 History Ipratropium-Albuterol Nebulize 3 ml INHALATION RT-Q6H PRN 09/27/23 09/27/23 History [Duoneb 0.5 mg-3 mg/3 ml Soln] Levothyroxine Sodium [Synthroid] 100 mcg PO DAILY@0700 09/27/23 09/27/23 History Levothyroxine Sodium [Synthroid] 125 mcg PO DAILY@0700 09/27/23 09/27/23 History Oyster-Calcium/Vitamin D3 1 tab PO DAILY@1700 09/27/23 09/27/23 History 500mg/200unit Tab Sennosides [Senokot] 17.2 mg PO BID@0800,1700 09/27/23 09/27/23 History polyethylene glycoL 3350 [Miralax] 17 gm PO DAILY@0800 09/27/23 09/27/23 History Allergies Allergy/AdvReac Type Severity Reaction Status Date / Time cat dander Allergy Unknown Verified 09/27/23 20:58 dog dander Allergy Unknown Verified 09/27/23 20:58 estrella Allergy Unknown Verified 09/27/23 20:58 perfume Allergy Anaphylaxis Verified 09/27/23 20:58 pollen extracts Allergy Unknown Verified 09/27/23 20:58 wool Allergy Unknown Verified 09/27/23 20:58 gluten AdvReac Abdominal Verified 09/27/23 20:58 Pain dust Allergy Unknown Uncoded 09/27/23 20:58 smoke Allergy Unknown Uncoded 09/27/23 20:58 Physical Exam Vitals: Vital Signs Temp Pulse Resp BP Pulse Ox 09/28/23 09:07 89 16 105/80 97 09/28/23 06:46 81 14 108/63 94 L 09/28/23 04:58 98.8 F 86 15 115/75 94 L 09/28/23 01:42 93 14 102/77 96 09/27/23 23:49 99.1 F 108 H 15 98/66 93 L 09/27/23 22:27 101.4 F H 104 H 18 100/78 09/27/23 21:53 18 123/67 92 L 09/27/23 21:15 102 H 14 114/95 93 L 09/27/23 19:57 98.9 F 103 H 18 118/87 95 Intake and Output 09/27/23 09/28/23 09/28/23 22:59 06:59 14:59 Output Total 375 Balance -375 Output: Urine 375 Uretheral (Joyce) 250 Other: Weight 83.915 kg Results - Lab Results Most recent lab results Calcium 8.8 mg/dL (8.4-10.2) 09/28/23 09:14 Magnesium 3.1 mg/dL (1.6-2.3) H 09/28/23 09:14 09/27/23 21:08 09/28/23 09:14 Assessment and Plan Plan: Assessment: 1. Hypernatremia from lack of full water intake. Sodium level 166. 2. Dementia. 3. UTI on antibiotics. 4. Mild acute kidney injury secondary to vasomotor nephropathy from hypovolemia, poor intake and infection. Creatinine 1.11 today. Plan: Increase rate of D5W to 125 mL an hour. Repeat sodium level this evening. Avoid nephrotoxins. Continue to monitor renal function and urine output. Follow-up cultures. Thank you for the consultation. I will continue to follow the patient with you during her hospital stay.
[2023-09-28] MEDS: HEPARIN SODIUM,PORCINE 5,000 UNIT/ML 1 ML VIAL SQ SCH ×2 (11:48→20:59)
[2023-09-28] MEDS: SODIUM CHLORIDE 0.45% 1,000 ML IV SCH (20:58)
[2023-09-29] MEDS: PIPERACILLIN-TAZOBACTAM 3.375 GM in SODIUM CHLORIDE 0.9% 100 ML IVPB SCH ×3 (00:06→17:03)
[2023-09-29] MEDS: SODIUM CHLORIDE 0.45% 1,000 ML IV SCH (07:36)
[2023-09-29] MEDS: HEPARIN SODIUM,PORCINE 5,000 UNIT/ML 1 ML VIAL SQ SCH ×2 (07:36→21:50)
[2023-09-29] MEDS ORDERED: DEXAMETHASONE SOD PHOSPHATE 4 MG/ML 1 ML VIAL IV ONE (08:36)
[2023-09-29] MEDS ORDERED: ONDANSETRON 4 MG/2 ML VIAL IVP ONE (08:36)
[2023-09-29 09:07] LABS: African American GFR (CKD) 70 (>60 ml/min/1.73 sqM); Anion Gap 8 mmol/L; Blood Urea Nitrogen 30 mg/dL (7-17); Calcium 8.1 mg/dL (8.4-10.2); Carbon Dioxide 25 mmol/L (22-30); Chloride 124 mmol/L (98-107); Glucose 107 mg/dL (74-99); Magnesium 2.8 mg/dL (1.6-2.3); Non-African American GFR(CKD) 60 (>60 ml/min/1.73 sqM); Potassium 3.6 mmol/L (3.5-5.1); Sodium 157 mmol/L (137-145)
[2023-09-29] MEDS: LACTATED RINGERS 1,000 ML IV SCH (09:07)
[2023-09-29 10:10] LABS: Potassium 4.1 mmol/L (3.5-5.1)
--- NOTE | 2023-09-29 10:14 | P.PN ---
Subjective Progress Note Date: 09/29/23 No acute overnight events hypernatremia is improving. Patient is afebrile this morning Objective - Vital Signs Vital signs: Vital Signs Temp 98.3 F 09/29/23 07:08 Pulse 70 09/29/23 07:08 Resp 16 09/29/23 07:08 BP 107/71 09/29/23 07:08 Pulse Ox 95 09/29/23 07:08 FiO2 Intake & Output 09/28/23 09/29/23 09/29/23 19:59 06:59 18:59 Output Total Balance Weight Output: Urine Other: Voiding Method # Voids # Bowel Movements - Labs CBC & Chem 7: 09/27/23 21:08 09/29/23 09:01 Labs: Abnormal Lab Results - Last 24 Hours (Table) 09/28/23 09/29/23 09/29/23 Range/Units 17:47 07:35 09:01 Sodium 158 H 157 H 157 H (137-145) mmol/L Chloride 124 H 126 H (98-107) mmol/L BUN 30 H (7-17) mg/dL Glucose 107 H (74-99) mg/dL Calcium 8.1 L (8.4-10.2) mg/dL Magnesium 2.8 H (1.6-2.3) mg/dL Assessment and Plan Assessment: 78-year-old female with advanced dementia, admitted to the hospital with hypernatremia with sodium of 169, and a distal ureteral stone with UTI. She is currently hemodynamically stable. Had a prolonged discussion with the patient's she is at high risk of any type of surgical intervention given her clinical status. Discussed given her stone and UTI I do recommend proceeding with stent insertion -OR for cystoscopy and right stent insertion
[2023-09-29] MEDS ORDERED: MIDAZOLAM 2 MG/2 ML VIAL ONE (10:44)
[2023-09-29] MEDS ORDERED: PROPOFOL 10 MG/ML 20 ML VIAL IV ONE (10:44)
[2023-09-29] MEDS ORDERED: LACTATED RINGERS 1,000 ML IV ONE (10:49)
--- NOTE | 2023-09-29 11:05 | P.PN ---
Subjective Patient is a 78-year-old female with known history of advanced dementia and alert oriented 1 at baseline was brought in because of increasing lethargy and increasing confusion for from her baseline and found to have severe dehydration and hyponatremia subsequently admitted with IV fluids that is normal saline which is presently being switched to D5 water. I'm unable to get any kind of history from the patient patient the is not febrile but does have leukocytosis of 18,000 white blood cell count. Urinalysis is significant for a highly eleva mario alberto RBC and a PVC although patient is found to have a 6 mm renal calculus, and right-sided UVJ junction. CT of the abdomen did show hydronephrosis and some bilateral lower lobe infiltrates may be atelectasis. Patient is presently on Zosyn and unable to provide any kind of history to me although patient is arousable, drowsy. 10/09/2023 Patient didn't have any significant clinical improvement but does see them sodium did improve patient is undergoing ureteral stent placement Review of systems: Unable to obtain any review of systems because of her clinical condition PHYSICAL EXAMINATION: GENERAL: Patient appears to be extremely dehydrated with dry mucous membranes drowsy arousable HEENT: Pupils are round and equally reacting to light. EOMI. No scleral icterus. No conjunctival pallor. Normocephalic, atraumatic. No pharyngeal erythema. No thyromegaly. CARDIOVASCULAR: S1 and S2 present. No murmurs, rubs, or gallops. PULMONARY: Chest is clear to auscultation, no wheezing or crackles. ABDOMEN: Limited assessment there may be some tenderness in the right lower abdomen CVA tenderness is not appreciable nondistended, normoactive bowel sounds. No palpable organomegaly. MUSCULOSKELETAL: No joint swelling or deformity. EXTREMITIES: No cyanosis, clubbing, or pedal edema. NEUROLOGICAL: Unable to assess SKIN: No rashes. Assessment and plan -Acute metabolic encephalopathy is secondary to severe dehydration and hyponatremia: Patient has a serum sodium of 166, improved today with the D5 water -Toxic encephalopathy cannot be ruled out, I cannot rule out a urinary tract infection and possibility of pneumonia as well,continue Zosyn at this time. -Right-sided renal calculus with hydronephrosis: Neurology evaluated the patient in the patient and will undergo ureteral stent placement overall prognosis is extremely poor need to have a discussion with family regarding hospice -Acute renal failure: Secondary to prerenal azotemia with dehydration mostly. -Possible urinary obstruction and retention from: Will order bladder scan -Leukocytosis possibly of sepsis cannot be ruled out antibiotics as mentioned above -Mild nonspecific elevation of AST and ALT are transaminitis secondary to sepsis -Coronary artery disease -hyperlipidemia -Hypertension -Hypothyroidism Patient cannot to take anything by mouth because of her mental status holding of all noncritical home medications. Due to prophylaxis: Subcutaneous heparin Objective - Vital Signs Vital signs: Vital Signs Temp 98.3 F 09/29/23 07:08 Pulse 70 09/29/23 07:08 Resp 16 09/29/23 07:08 BP 107/71 09/29/23 07:08 Pulse Ox 95 09/29/23 07:08 FiO2 Intake & Output 09/28/23 09/29/23 09/29/23 19:59 06:59 18:59 Output Total Balance Weight Output: Urine Other: Voiding Method # Voids # Bowel Movements - Labs CBC & Chem 7: 09/27/23 21:08 09/29/23 09:01 Labs: Abnormal Lab Results - Last 24 Hours (Table) 09/28/23 09/29/23 09/29/23 Range/Units 17:47 07:35 09:01 Sodium 158 H 157 H 157 H (137-145) mmol/L Chloride 124 H 126 H (98-107) mmol/L BUN 30 H (7-17) mg/dL Glucose 107 H (74-99) mg/dL Calcium 8.1 L (8.4-10.2) mg/dL Magnesium 2.8 H (1.6-2.3) mg/dL
--- NOTE | 2023-09-29 11:53 | FL ---
Intraoperative/procedural fluoroscopic services were provided. Total fluoroscopy time is 2.1 seconds with a total of 1 submitted images to PACS. Please see the operative/procedural note for further deta ils. DAP: 0.2303 Gycm2
--- NOTE | 2023-09-29 12:03 | P.PN ---
Subjective patient is seen in follow-up for hyponatremia and acute kidney injury. Sodium level improving. Renal function was improving. Blood pressure stable. Currently receiving half-normal saline. Poor historian. Vital signs are stable. General: No acute distress. HEENT: Head exam is unremarkable. LUNGS: No audible rhonchi or wheezes. HEART: Rate and Rhythm are regular. ABDOMEN: Nontender. EXTREMITITES: No edema. Objective - Vital Signs Vital signs: Vital Signs Temp 97.3 F L 09/29/23 11:33 Pulse 66 09/29/23 11:45 Resp 16 09/29/23 11:45 BP 100/55 09/29/23 11:45 Pulse Ox 100 09/29/23 11:45 FiO2 Intake & Output 09/28/23 09/29/23 09/29/23 19:59 06:59 18:59 Intake Total 100 Output Total 2 Balance 98 Weight Intake: IV 100 Output: Urine Estimated Blood Loss 2 Other: Voiding Method # Voids # Bowel Movements - Labs CBC & Chem 7: 09/27/23 21:08 09/29/23 09:01 Labs: Abnormal Lab Results - Last 24 Hours (Table) 09/28/23 09/29/23 09/29/23 Range/Units 17:47 07:35 09:01 Sodium 158 H 157 H 157 H (137-145) mmol/L Chloride 124 H 126 H (98-107) mmol/L BUN 30 H (7-17) mg/dL Glucose 107 H (74-99) mg/dL Calcium 8.1 L (8.4-10.2) mg/dL Magnesium 2.8 H (1.6-2.3) mg/dL Assessment and Plan Plan: Assessment: 1. Hypernatremia from lack of full water intake. Improving. Sodium level 157 this morning. 2. Dementia. 3. UTI on antibiotics. 4. Mild acute kidney injury secondary to vasomotor nephropathy from hypovolemia, poor intake and infection. Improving. Creatinine 0.93 this morning. Plan: Change IV fluids from half normal saline to D5W at 75 mL an hour. Repeat sodium level this evening. Avoid nephrotoxins. Continue to monitor renal function and urine output.
[2023-09-29] MEDS: DEXTROSE 5% IN WATER 1,000 ML IV SCH (12:25)
[2023-09-30] MEDS: PIPERACILLIN-TAZOBACTAM 3.375 GM in SODIUM CHLORIDE 0.9% 100 ML IVPB SCH ×3 (00:22→16:02)
[2023-09-30] MEDS: DEXTROSE 5% IN WATER 1,000 ML IV SCH (05:09)
[2023-09-30] MEDS ORDERED: HYDROmorphone 0.5 MG/0.5 ML SYRINGE IVP PRN (07:00)
[2023-09-30] MEDS: HEPARIN SODIUM,PORCINE 5,000 UNIT/ML 1 ML VIAL SQ SCH ×2 (08:04→22:07)
[2023-09-30] MEDS: LACTATED RINGERS 1,000 ML IV SCH (08:05)
--- NOTE | 2023-09-30 09:02 | P.PN ---
Subjective Progress Note Date: 09/30/23 Principal diagnosis: Right ureteral calculus, UTI Patient is a 78-year-old white female admitted with hypernatremia and possible sepsis of urinary origin. CT scan showed evidence of right hydronephrosis due to an obstructing right distal ureteral calculus. She underwent placement of a right ureteral stent yesterday. Objective - Vital Signs Vital signs: Vital Signs Temp 98.4 F 09/30/23 01:25 Pulse 78 09/30/23 01:25 Resp 18 09/30/23 01:25 BP 102/65 09/30/23 01:25 Pulse Ox 100 09/30/23 01:25 FiO2 Intake & Output 09/29/23 09/30/23 09/30/23 18:59 06:59 18:59 Intake Total 200 Output Total 202 325 Balance -2 -325 Intake: IV 200 Output: Urine 200 325 Estimated Blood Loss 2 Other: Voiding Method Incontinent Diaper External Catheter # Voids 1 - Constitutional General appearance: Present: average body habitus - Gastrointestinal General gastrointestinal: Present: soft. Absent: distended, tenderness - Psychiatric Psychiatric Comment(s): The patient is unresponsive to verbal stimuli. - Labs CBC & Chem 7: 09/27/23 21:08 09/29/23 17:59 Labs: Abnormal Lab Results - Last 24 Hours (Table) 09/29/23 09/29/23 09/29/23 Range/Units 07:35 09:01 17:59 Sodium 157 H 157 H 151 H (137-145) mmol/L Chloride 124 H 126 H (98-107) mmol/L BUN 30 H (7-17) mg/dL Glucose 107 H (74-99) mg/dL Calcium 8.1 L (8.4-10.2) mg/dL Magnesium 2.8 H (1.6-2.3) mg/dL Microbiology - Last 24 Hours (Table) 09/27/23 22:53 Blood Culture - Preliminary Blood 09/27/23 23:13 Blood Culture - Preliminary Blood Assessment and Plan Assessment: Urinalysis obtained at the time of admission was suggestive of a UTI. It does not appear that a urine culture was done. Blood cultures are negative at 24 hours. (1) Urinary tract infection Current Visit: No Status: Acute Code(s): N39.0 - URINARY TRACT INFECTION, SITE NOT SPECIFIED SNOMED Code(s): 81959331 (2) Calculus of ureter Current Visit: Yes Status: Acute Code(s): N20.1 - CALCULUS OF URETER SNOMED Code(s): 93653347 Plan: - Continue Zosyn. - Once patient is medically stable for discharge, she should be discharged home on a broad-spectrum oral antibiotic. If the blood cultures remain negative, the infecting organism will remain unknown since a urine culture was not obtained. - Dr. Leblanc will make arrangements for the patient to undergo outpatient cystoscopy, stent removal, and ureteroscopic removal of the calculus.
--- NOTE | 2023-09-30 10:22 | P.OP ---
Date of Procedure: 09/29/23 Preoperative Diagnosis: Right ureteral stone Postoperative Diagnosis: Same Procedure(s) Performed: Cystoscopy and right stent insertion Implants: 6-Luxembourgish by 24 cm stent in the right ureter Anesthesia: MAC Surgeon: Xavier Leblanc Estimated Blood Loss (ml): 1 Pathology: none sent Condition: stable Disposition: PACU Indications for Procedure: This is a 78-year-old female history of a 5 mm stone and evidence of UTI. Patient was febrile on presentation in addition had hyponatremia 169. Hypernatremia has improved this morning. Discussed with patient's at this point I recommend proceeding with stent insertion given her septic presentation. Discussed risk and benefits and rationale of surgery in detail Description of Procedure: Patient brought to the operating room, sedation was induced. She was prepped and draped in sterile fashion and placed in dorsal lithotomy position. Cystoscopy fitted with 21-Luxembourgish sheath was inserted per urethra, cystoscopy was performed which showed no abnormality within the bladder. Next a sensor wire was advanced through the scope and up the right ureter orifice. Next a ureteral stent was passed over the wire, the proximal curl was visualized on fluoroscopy and the distal curl was visualized using cystoscope. The bladder was emptied and the end of the case. Patient tolerated the procedure well was taken to recovery in stable condition
--- NOTE | 2023-09-30 12:58 | P.PN ---
Subjective Patient is seen for follow-up for hypernatremia and acute kidney injury. Currently maintained on IV fluids with improvement in serum sodium Labs pending from today. Patient is awake. She does not communicate much. Family present at bedside. Objective - Vital Signs Vital signs: Vital Signs Temp 97.8 F 09/30/23 07:14 Pulse 58 L 09/30/23 07:14 Resp 17 09/30/23 07:14 BP 110/72 09/30/23 07:14 Pulse Ox 98 09/30/23 08:20 FiO2 Intake & Output 09/29/23 09/30/23 09/30/23 18:59 06:59 18:59 Intake Total 200 Output Total 202 325 Balance -2 -325 Intake: IV 200 Output: Urine 200 325 Estimated Blood Loss 2 Other: Voiding Method Incontinent Diaper External Catheter # Voids 1 - Exam Patient is awake, comfortable, no acute distress Examination of the heart S1 and S2 Examination of the lungs bilateral breath sounds are heard Abdomen is soft nontender Examination lower extremity shows no significant edema. Patient does not communicate much - Labs CBC & Chem 7: 09/27/23 21:08 09/29/23 17:59 Labs: Abnormal Lab Results - Last 24 Hours (Table) 09/29/23 09/30/23 Range/Units 17:59 05:24 Sodium 151 H (137-145) mmol/L Magnesium 2.8 H (1.5-2.4) mg/dL Microbiology - Last 24 Hours (Table) 09/27/23 22:53 Blood Culture - Preliminary Blood 09/27/23 23:13 Blood Culture - Preliminary Blood Assessment and Plan Assessment: 1. Hypernatremia from decreased free water intake. Improving. Sodium level 151 yesterday. Labs are pending this morning. 2. Dementia. 3. UTI on antibiotics. 4. Mild acute kidney injury secondary to vasomotor nephropathy from hypovolemia, poor intake and infection. Improving. Creatinine 0.93 this morning. Plan: Follow-up on labs from today Continue D5W Repeat labs in a.m. Continue to encourage increased oral intake
[2023-10-01] MEDS: PIPERACILLIN-TAZOBACTAM 3.375 GM in SODIUM CHLORIDE 0.9% 100 ML IVPB SCH ×3 (01:09→16:12)
[2023-10-01] MEDS: DEXTROSE 5% IN WATER 1,000 ML IV SCH (02:22)
--- NOTE | 2023-10-01 05:10 | P.PN ---
Subjective Progress Note Date: 09/30/23 Patient is a 78-year-old female with known history of advanced dementia and alert oriented 1 at baseline was brought in because of increasing lethargy and increasing confusion for from her baseline and found to have severe dehydration and hyponatremia subsequently admitted with IV fluids that is normal saline which is presently being switched to D5 water. I'm unable to get any kind of history from the patient patient the is not febrile but does have leukocytosis of 18,000 white blood cell count. Urinalysis is significant for a highly elevated RBC and a PVC although patient is found to have a 6 mm renal calculus, and right-sided UVJ junction. CT of the abdomen did show hydronephrosis and some bilateral lower lobe infiltrates may be atelectasis. Patient is presently on Zosyn and unable to provide any kind of history to me although patient is arousable, drowsy. 09/29/2023 Patient didn't have any significant clinical improvement but does see them sodium did improve patient is undergoing ureteral stent placement 09/30/2023 Patient seen and evaluated in follow-up with at the bedside. Sodium is improving and is down to 151. We'll continue D5 water and follow-up with repeat labs. Kidney function significantly improved patient is denying any pain at this time. Plan is for returning to [facility] and has been cleared by urology. Patient is currently afebrile with no reported chest pain or shortness of breath. Encouraged oral intake and superficial with meals. Recommend a spiration precautions with head of the bed elevated 30-45 times. Review of systems: Unable to obtain any review of systems because patient is mostly nonverbal PHYSICAL EXAMINATION: GENERAL: Patient is a 78-year-old female who is awake, alert and oriented 1-2, baseline, elderly-appearing, well-developed, obese HEENT: Pupils are round and equally reacting to light. EOMI. No scleral icterus. No conjunctival pallor. Normocephalic, atraumatic. No pharyngeal erythema. No thyromegaly. CARDIOVASCULAR: S1 and S2 present. No murmurs, rubs, or gallops. PULMONARY: Chest is clear to auscultation, no wheezing or crackles. ABDOMEN: Limited assessment nontender on palpation in the right lower abdomen, CVA tenderness is not appreciable, nondistended, normoactive bowel sounds. No palpable organomegaly. MUSCULOSKELETAL: No joint swelling or deformity. EXTREMITIES: No cyanosis, clubbing, or pedal edema. Diffusely weak NEUROLOGICAL: Unable to assess SKIN: No rashes. Assessment: -Acute metabolic encephalopathy is secondary to severe dehydration and hypernatremia: Patient serum sodium was 166, trending down, currently 151 -Toxic encephalopathy cannot be ruled out, I cannot rule out a urinary tract infection and possibility of pneumonia as well,continue Zosyn at this time. -Right-sided renal calculus with hydronephrosis: Status post right ureteral stent placement -Acute renal failure: Secondary to prerenal azotemia with dehydration , improving -Possible urinary obstruction and retention from renal calculus on the right -Leukocytosis possibly of sepsis cannot be ruled out , improving -Mild nonspecific elevation of AST and ALT are transaminitis secondary to sepsis -Coronary artery disease history -hyperlipidemia -Hypertension -Hypothyroidism -dvt prophylaxis: Subcutaneous heparin -GI prophylaxis -Full code Plan: Patient is currently maintained on D5 and water and sodium level is 151 today. We'll continue D5 water and follow-up on labs Continue IV Zosyn Urology has evaluated the patient is status post right ureteral stent placement and has recommended to continue with stent and close outpatient follow-up in 2-3 weeks Continue aspiration precautions and supervision with meals Repeat labs ordered for a.m. Case management/social work following the patient will be returning to [facility] where she resides CODE STATUS is currently full code and needs to be addressed this patient's overall quality of life and clinical condition is poor. Consider palliative versus hospice The impression and plan of care has been dictated by Seema Peters, Nurse Practitioner as directed. Dr. Leisa MD I have performed a history and examination and MDM of this patient, discussed the same with the dictator, and agree with the dictator's assessment and plan as written ,documented as a scribe. Based on total visit time, I have performed more than 50% of the visit. Objective - Vital Signs Vital signs: Vital Signs Temp 97.8 F 09/30/23 07:14 Pulse 58 L 09/30/23 07:14 Resp 17 09/30/23 07:14 BP 110/72 09/30/23 07:14 Pulse Ox 98 09/30/23 08:20 FiO2 Intake & Output 09/29/23 09/30/23 09/30/23 18:59 06:59 18:59 Intake Total 200 Output Total 202 325 Balance -2 -325 Intake: IV 200 Output: Urine 200 325 Estimated Blood Loss 2 Other: Voiding Method Incontinent Diaper External Catheter # Voids 1 - Labs CBC & Chem 7: 09/27/23 21:08 09/29/23 17:59 Labs: Abnormal Lab Results - Last 24 Hours (Table) 09/29/23 09/29/23 09/29/23 Range/Units 07:35 09:01 17:59 Sodium 157 H 157 H 151 H (137-145) mmol/L Chloride 124 H 126 H (98-107) mmol/L BUN 30 H (7-17) mg/dL Glucose 107 H (74-99) mg/dL Calcium 8.1 L (8.4-10.2) mg/dL Magnesium 2.8 H (1.6-2.3) mg/dL 09/30/23 Range/Units 05:24 Sodium (137-145) mmol/L Chloride (98-107) mmol/L BUN (7-17) mg/dL Glucose (74-99) mg/dL Calcium (8.4-10.2) mg/dL Magnesium 2.8 H (1.6-2.3) mg/dL Microbiology - Last 24 Hours (Table) 09/27/23 22:53 Blood Culture - Preliminary Blood 09/27/23 23:13 Blood Culture - Preliminary Blood
[2023-10-01 06:39] LABS: African American GFR (CKD) 87 (>60 ml/min/1.73 sqM); Anion Gap 6 mmol/L; Blood Urea Nitrogen 22 mg/dL (7-17); Calcium 8.1 mg/dL (8.4-10.2); Carbon Dioxide 21 mmol/L (22-30); Chloride 119 mmol/L (98-107); Glucose 89 mg/dL (74-99); Non-African American GFR(CKD) 75 (>60 ml/min/1.73 sqM); Sodium 146 mmol/L (137-145)
[2023-10-01 06:40] LABS: Potassium 4.6 mmol/L (3.5-5.1)
[2023-10-01 07:45] VITALS: BP 106/72; PULSE 66; RESP 17; TEMP 98
[2023-10-01] MEDS: HEPARIN SODIUM,PORCINE 5,000 UNIT/ML 1 ML VIAL SQ SCH (08:10)
--- NOTE | 2023-10-01 09:05 | P.PN ---
Subjective Progress Note Date: 10/01/23 Principal diagnosis: Right ureteral calculus, UTI Patient is a 78-year-old white female admitted with hypernatremia and possible sepsis of urinary origin. CT scan showed evidence of right hydronephrosis due to an obstructing right distal ureteral calculus. She underwent placement of a right ureteral stent on 09/29/2023. She is resting comfortably. Objective - Vital Signs Vital signs: Vital Signs Temp 98.7 F 10/01/23 02:00 Pulse 63 10/01/23 02:00 Resp 16 10/01/23 02:00 BP 98/64 10/01/23 02:00 Pulse Ox 93 L 10/01/23 02:00 FiO2 Intake & Output 09/30/23 10/01/23 10/01/23 18:59 06:59 18:59 Intake Total 600 Output Total 300 750 Balance -300 -150 Intake: Intake, IV Titration 600 Amount Dextrose 5% in Water 1, 400 000 ml @ 50 mls/hr IV . Q20H [facility] Rx#:[id number] Piperacillin-Tazobactam 3 200 .375 gm In Sodium Chloride 0.9% 100 ml @ 25 mls/hr IVPB Q8HR [facility] Rx# :[id number] Output: Urine 300 750 Other: Voiding Method Diaper External Catheter # Voids 200 - Constitutional General appearance: Present: no acute distress - Labs CBC & Chem 7: 09/27/23 21:08 10/01/23 05:57 Labs: Abnormal Lab Results - Last 24 Hours (Table) 09/30/23 10/01/23 Range/Units 05:24 05:57 Sodium 146 H (137-145) mmol/L Chloride 119 H (98-107) mmol/L Carbon Dioxide 21 L (22-30) mmol/L BUN 22 H (7-17) mg/dL Calcium 8.1 L (8.4-10.2) mg/dL Magnesium 2.8 H (1.5-2.4) mg/dL Microbiology - Last 24 Hours (Table) 09/27/23 22:53 Blood Culture - Preliminary Blood 09/27/23 23:13 Blood Culture - Preliminary Blood Assessment and Plan Assessment: Urinalysis obtained at the time of admission was suggestive of a UTI. It does not appear that a urine culture was done. Blood cultures are negative at 48 hours. (1) Urinary tract infection Current Visit: No Status: Acute Code(s): N39.0 - URINARY TRACT INFECTION, SITE NOT SPECIFIED SNOMED Code(s): 04626954 (2) Calculus of ureter Current Visit: Yes Status: Acute Code(s): N20.1 - CALCULUS OF URETER SNOMED Code(s): 23242802 Plan: - Continue Zosyn. - Once patient is medically stable for discharge, she should be discharged home on a broad-spectrum oral antibiotic. If the blood cultures remain negative, the infecting organism will remain unknown since a urine culture was not obtained. - Dr. Leblanc will make arrangements for the patient to undergo outpatient cystoscopy, stent removal, and ureteroscopic removal of the calculus. - Please notify us if we can be of any further assistance during this hospitalization.
--- NOTE | 2023-10-01 12:59 | P.PN ---
Subjective Patient is seen for follow-up for hypernatremia and acute kidney injury. Currently maintained on IV fluids with improvement in serum sodium Sodium down to 146 today Patient is awake. Mentation has improved. Objective - Vital Signs Vital signs: Vital Signs Temp 98.0 F 10/01/23 07:37 Pulse 66 10/01/23 07:37 Resp 17 10/01/23 07:37 BP 106/72 10/01/23 07:37 Pulse Ox 92 L 10/01/23 07:37 FiO2 Intake & Output 09/30/23 10/01/23 10/01/23 18:59 06:59 18:59 Intake Total 600 Output Total 300 750 Balance -300 -150 Intake: Intake, IV Titration 600 Amount Dextrose 5% in Water 1, 400 000 ml @ 50 mls/hr IV . Q20H [facility] Rx#:[id number] Piperacillin-Tazobactam 3 200 .375 gm In Sodium Chloride 0.9% 100 ml @ 25 mls/hr IVPB Q8HR [facility] Rx# :[id number] Output: Urine 300 750 Other: Voiding Method Diaper External Catheter # Voids 200 - Exam Patient is awake, comfortable, no acute distress Examination of the heart S1 and S2 Examination of the lungs bilateral breath sounds are heard Abdomen is soft nontender Examination lower extremity shows no significant edema. - Labs CBC & Chem 7: 09/27/23 21:08 10/01/23 05:57 Labs: Abnormal Lab Results - Last 24 Hours (Table) 10/01/23 Range/Units 05:57 Sodium 146 H (137-145) mmol/L Chloride 119 H (98-107) mmol/L Carbon Dioxide 21 L (22-30) mmol/L BUN 22 H (7-17) mg/dL Calcium 8.1 L (8.4-10.2) mg/dL Microbiology - Last 24 Hours (Table) 09/27/23 22:53 Blood Culture - Preliminary Blood 09/27/23 23:13 Blood Culture - Preliminary Blood Assessment and Plan Assessment: 1. Hypernatremia from decreased free water intake. Improving. Sodium level 146 today. 2. Dementia. 3. UTI on antibiotics. 4. Mild acute kidney injury secondary to vasomotor nephropathy from hypovole devi, poor intake and infection. Improving. Creatinine 0.7 this morning. Plan: Continue D5W Repeat labs in a.m. Continue to encourage increased oral intake
--- NOTE | 2023-10-01 14:19 | P.DS ---
Providers Date of admission: 09/28/23 06:04 Expected date of discharge: 10/01/23 Attending physician: Leticia Schreiber Consults: 09/28/23 04:56 Consult Physician Routine Consulting Provider: Roel Phillips Consult Reason/Comments: hypernatremia Do you want consulting provider notified?: Yes 09/28/23 06:03 Consult Physician Routine Consulting Provider: Xavier Leblanc Consult Reason/Comments: nephrolithiasis sepsis Do you want consulting provider notified?: Yes Primary care physician: [facility] Course: Final diagnosis -Acute metabolic encephalopathy is secondary to severe dehydration and hypernatremia: Patient serum sodium was 166 on admission, trending down, currently 146 -Toxic encephalopathy secondary to acute urinary tract infection and possibility of pneumonia as well -Right-sided renal calculus with hydronephrosis: Status post right ureteral stent placement -Acute renal failure: Secondary to prerenal azotemia with dehydration , improving -Possible urinary outlet obstruction and retention from renal calculus on the right -Leukocytosis secondary to sepsis present on admission from acute urinary tract infection , improved -Mild nonspecific elevation of AST and ALT are transaminitis secondary to sepsis -Coronary artery disease history -hyperlipidemia -Hypertension -Hypothyroidism -dvt prophylaxis: Subcutaneous heparin -GI prophylaxis -Full code Discharge disposition Patient is being discharged in a stable condition with guarded prognosis to [facility]. Patient will follow-up with Dr. Caballero in the outpatient setting upon discharge. Patient is to continue with oral Ceftin 500 mg twice daily for the next 4 days and close outpatient follow-up with urology as well as nephrology as scheduled. Recommend repeat labs in 2-3 days to monitor kidney functions and sodium level. Total time taken is greater than 35 minutes. Hospital course This is a 78-year-old female who was recently admitted with increased weakness and confusion found to have severe dehydration with hypernatremia with significant leukocytosis and also underwent imaging shown to have a right renal calculus and is status post right ureteral placement with urology. Patient was being evaluated by urology along with nephrology for hypernatremia along with acute renal failure. Kidney functions have significantly improved and sodium level is going down at 146 today. Recommend follow-up labs in the next 2 days to monitor kidney functions and sodium level. Patient will also continue on oral Ceftin twice daily for the next 4 days to complete course. Patient is to follow-up with urology in the outpatient setting in the next 2 weeks to discuss stent removal and/or treatment plan moving forward. Patient has been cleared by consultations and will be discharged to [facility] today. Patient is a resident there. Please refer to other consultation notes for further HPI. Currently no reports of chest pain, shortness of breath, or palpitations. Patie nt is afebrile. No reports of nausea or vomiting and patient is tolerating diet. Patient will be continued on dysphagia pure diet and strongly recommend aspiration precautions with head of the bed elevated 30-45 and supervision with meals. Strongly suggest further discussing CODE STATUS with family as patient remains full code per . Patient will be discharged to [facility] today. Guarded prognosis and overall poor prognosis with poor quality of life and high risk for readmission. Physical exam: Gen: This is a 78 year old female who is awake, alert and oriented 1, elderly-a ppearing, mostly nonverbal, well-developed, obese HEENT: Head is atraumatic, normocephalic. Pupils equal, round. Sclerae is anicteric. NECK: Supple. No JVD. No lymphadenopathy. No thyromegaly. LUNGS: Clear to auscultation. No wheezes or rhonchi. No intercostal retractions. HEART: Regular rate and rhythm. No murmur. ABDOMEN: Soft. Obese. Bowel sounds are present. No masses. No tenderness. EXTREMITIES: No pedal edema. No calf tenderness. NEUROLOGICAL: Patient is awake, alert and oriented x1 baseline. Diffusely weak Please refer to medication reconciliation sheet for a list of medications. The impression and plan of care has been dictated by Seema Peters, Nurse Practitioner as directed. Dr. Leisa MD I have performed a history and examination and MDM of this patient, discussed the same with the dictator, and agree with the dictator's assessment and plan as written ,documented as a scribe. Based on total visit time, I have performed more than 50% of the visit. Patient Condition at Discharge: Fair Plan - Discharge Summary Discharge Rx Participant: No New Discharge Prescriptions: No Action Nitroglycerin Sl Tabs [Nitrostat] 0.4 mg SL Q5M PRN PRN Reason: Chest Pain Aspirin EC [Ecotrin Low Dose] 81 mg PO DAILY@1700 atenoloL [Tenormin] 25 mg PO DAILY@0800 Vit C/E/Zn/Coppr/Lutein/Zeaxan [Preservision Areds 2 Softgel] 1 cap PO BID@0800,1700 Memantine [Namenda] 10 mg PO BID@0800,1700 Rosuvastatin [Crestor] 10 mg PO DAILY@0800 Donepezil [Aricept] 10 mg PO DAILY@0800 Calcium Carb/Magnesium Hydrox [Rolaids Ultra 1000-200 mg Chew] 1 - 2 tab PO DAILY PRN PRN Reason: Heartburn Magnesium Oxide [Magox 400] 400 mg PO DAILY@1700 Oyster-Calcium/Vitamin D3 500mg/200unit Tab 1 tab PO DAILY@1700 Famotidine [Pepcid] 20 mg PO DAILY@0700 Levothyroxine Sodium [Synthroid] 100 mcg PO DAILY@0700 Levothyroxine Sodium [Synthroid] 125 mcg PO DAILY@0700 polyethylene glycoL 3350 [Miralax] 17 gm PO DAILY@0800 Isosorbide Mononitrate ER [Imdur] 15 mg PO HS bisacodyL [Dulcolax] 10 mg RECTAL DAILY PRN PRN Reason: Constipation Na Phos,M-B/Na Phos,Di-Ba [Fleet Adult] 133 ml RECTAL DAILY PRN PRN Reason: Constipation HYDROcodone/APAP 5-325MG [Waverly 5-325] 1 tab PO Q6H PRN PRN Reason: Pain Magnesium Hydroxide [Milk of Magnesia Concentrate] 7,200 mg PO Q2D PRN PRN Reason: Constipation Baclofen 5 mg PO TID PRN PRN Reason: Muscle Spasm Ensure Enlive 237 ml PO TID@0800,1200,1700 Ammonium Lactate Cream [Lac-Hydrin 12% Cream] 1 applic TOPICAL DAILY Cefuroxime [Ceftin] 250 mg PO BID@0800,1700 Cetirizine HCl [Zyrtec] 10 mg PO DAILY@0800 Ipratropium-Albuterol Nebulize [Duoneb 0.5 mg-3 mg/3 ml Soln] 3 ml INHALATION RT-Q6H PRN PRN Reason: Cough/Shortness Of Breath Sennosides [Senokot] 17.2 mg PO BID@0800,1700 Discharge Medication List Aspirin EC [Ecotrin Low Dose] 81 mg PO DAILY@1700 04/26/17 [History] Nitroglycerin Sl Tabs [Nitrostat] 0.4 mg SL Q5M PRN 04/26/17 [History] Vit C/E/Zn/Coppr/Lutein/Zeaxan [Preservision Areds 2 Softgel] 1 cap PO BID@0800,1700 04/26/17 [History] atenoloL [Tenormin] 25 mg PO DAILY@0800 04/26/17 [History] Memantine [Namenda] 10 mg PO BID@0800,1700 03/21/18 [History] Calcium Carb/Magnesium Hydrox [Rolaids Ultra 1000-200 mg Chew] 1 - 2 tab PO DAILY PRN 10/29/22 [History] Donepezil [Aricept] 10 mg PO DAILY@0810/29/22 [History] Isosorbide Mononitrate ER [Imdur] 15 mg PO HS 10/29/22 [History] Rosuvastatin [Crestor] 10 mg PO DAILY@0810/29/22 [History] HYDROcodone/APAP 5-325MG [Waverly 5-325] 1 tab PO Q6H PRN 11/21/22 [History] Magnesium Hydroxide [Milk of Magnesia Concentrate] 7,200 mg PO Q2D PRN 11/21/22 [History] Magnesium Oxide [Magox 400] 400 mg PO DAILY@17011/21/22 [History] Na Phos,M-B/Na Phos,Di-Ba [Fleet Adult] 133 ml RECTAL DAILY PRN 11/21/22 [History] bisacodyL [Dulcolax] 10 mg RECTAL DAILY PRN 11/21/22 [History] Ammonium Lactate Cream [Lac-Hydrin 12% Cream] 1 applic TOPICAL DAILY 09/27/23 [History] Baclofen 5 mg PO TID PRN 09/27/23 [History] Cefuroxime [Ceftin] 250 mg PO BID@0800,1700 09/27/23 [History] Cetirizine HCl [Zyrtec] 10 mg PO DAILY@0800 09/27/23 [History] Ensure Enlive 237 ml PO TID@0800,1200,1700 09/27/23 [History] Famotidine [Pepcid] 20 mg PO DAILY@0700 09/27/23 [History] Ipratropium-Albuterol Nebulize [Duoneb 0.5 mg-3 mg/3 ml Soln] 3 ml INHALATION RT-Q6H PRN 09/27/23 [History] Levothyroxine Sodium [Synthroid] 100 mcg PO DAILY@0700 09/27/23 [History] Levothyroxine Sodium [Synthroid] 125 mcg PO DAILY@0700 09/27/23 [History] Oyster-Calcium/Vitamin D3 500mg/200unit Tab 1 tab PO DAILY@1700 09/27/23 [History] Sennosides [Senokot] 17.2 mg PO BID@0800,1700 09/27/23 [History] polyethylene glycoL 3350 [Miralax] 17 gm PO DAILY@0800 09/27/23 [History] Follow up Appointment(s)/Referral(s): Sheng Caballero MD [Primary Care Provider] - 1-2 days
== END 2023-10-01 18:35 | DRG 853 ==
LOC: EC 19:56 → 4SSUR 09-28 06:04
PROVIDERS: ADMIT Hospitalist; ATTEND Hospitalist
PROC: 0T768DZ Dilation of Right Ureter with Intraluminal Device, Via Natural or Artificial Opening Endoscopic (ICD-10-PCS; principal; 2023-09-29 10:00)
DX: A41.9 Sepsis, unspecified organism (principal); G92.8 Other toxic encephalopathy; N17.0 Acute kidney failure with tubular necrosis; J18.9 Pneumonia, unspecified organism; E87.0 Hyperosmolality and hypernatremia; N13.6 Pyonephrosis; Z66 Do not resuscitate; F03.90 Unspecified dementia, unspecified severity, without behavioral disturbance, psychotic disturbance, mood disturbance, and anxiety; E86.0 Dehydration; E86.1 Hypovolemia; E78.5 Hyperlipidemia, unspecified; E89.0 Postprocedural hypothyroidism; R31.9 Hematuria, unspecified; F01.50 Vascular dementia, unspecified severity, without behavioral disturbance, psychotic disturbance, mood disturbance, and anxiety; I10 Essential (primary) hypertension; I25.10 Atherosclerotic heart disease of native coronary artery without angina pectoris; R74.01 Elevation of levels of liver transaminase levels; I49.3 Ventricular premature depolarization; M79.7 Fibromyalgia; Z11.52 Encounter for screening for COVID-19; Z87.891 Personal history of nicotine dependence; Z79.899 Other long term (current) drug therapy; Z79.890 Hormone replacement therapy; Z79.82 Long term (current) use of aspirin
CPT/HCPCS: 36415; 70450; 71045; 74177; 80048; 80051; 80053; 81001; 82330; 83605; 83690; 83735; 84295; 85025; 87040; 87636; 94760; 96361; 96365; 96366; 96372; 96375; 99285

== ENCOUNTER 2023-11-21 06:50 | Day surgery (SDC) | payer MEDICARE ==
[2023-11-14 15:56] VITALS: BMI 28.9
[~2023-11-21 06:50] MED LIST changes: -ALPRAZolam 0.25 MG TAB PO PRN; -ALPRAZolam 0.5 MG TAB PO PRN; -ASPIRIN 325 MG TAB PO STA; +GENTAMICIN 120 MG in SODIUM CHLORIDE 0.9% 100 ML IVPB PRN; -HEPARIN SODIUM 1,000 UN/ML (10ML VL) IV ONE; -HEPARIN SODIUM 1,000 UN/ML (10ML VL) ONE; -IOPAMIDOL-370 125ML BTL INJ ONE; -LIDOCAINE 2% INJ 20 MG/ML (20 ML MDV) ONE; -LIDOCAINE 2% INJ 20 MG/ML SQ ONE; -MIDAZOLAM 2 MG/2 ML VIAL ONE; -NITROGLYCERIN SL TABS 0.4 MG TAB SUBLINGUAL PRN; -RX INFO: IV CONTRAST WAS GIVEN 1 EACH MISC MISCELLANE PRN; -SODIUM CHLORIDE 0.9% 1,000 ML IV SCH; -SODIUM CHLORIDE 0.9% 1,000 ML in EMPTY BAG 1 BAG IV ONE; -VERAPAMIL 2.5 MG/ML 2 ML AMP ONE; -fentaNYL (PF) 50 MCG/ML 2 ML AMP IV ONE
[2023-11-21] MEDS ORDERED: DEXAMETHASONE SOD PHOSPHATE 4 MG/ML 1 ML VIAL IV ONE (07:22)
[2023-11-21] MEDS ORDERED: MIDAZOLAM 2 MG/2 ML VIAL IV PRN (07:22)
[2023-11-21] MEDS ORDERED: LIDOCAINE 1% (10MG/ML) FOR IV START INTRADERMA PRN (07:22)
[2023-11-21] MEDS ORDERED: HYDROmorphone 0.5 MG/0.5 ML SYRINGE IVP PRN (07:22)
[2023-11-21] MEDS ORDERED: LACTATED RINGERS 1,000 ML IV SCH (07:22)
[2023-11-21] MEDS ORDERED: ONDANSETRON 4 MG/2 ML VIAL IVP ONE ×2 (07:22→08:10)
[2023-11-21] MEDS ORDERED: DEXAMETHASONE SOD PHOSPHATE 4 MG/ML 1 ML VIAL IVP ONE (08:10)
--- NOTE | 2023-11-21 08:40 | P.GSHP ---
History of Present Illness H&P Date: 11/21/23 Chief Complaint: Hydronephrosis, recurrent UTI This is a 78-year-old female with history of advanced dementia presented to the hospital in early September with increased confusion worsened from baseline. She underwent a CT scan of the abdomen and pelvis that showed evidence of a 5 mm right distal ureteral calculus. She was febrile and underwent placement of a ureteral stent. Urine culture at that time showed a Proteus UTI, also seen on a recent urine culture. She is currently receiving antibiotics and is asymptomatic. - Constitutional Constitutional: Denies chills, Denies fever Past Medical History Past Medical History: Coronary Artery Disease (CAD), Chest Pain / Angina, Eye Disorder, Fibromyalgia, GERD/Reflux, Hyperlipidemia, Hypertension, Memory Impairment, Neurologic Disorder, Osteoarthritis (OA), Thyroid Disorder Additional Past Medical History / Comment(s): Right eye macular degeneration. Unable to speak, Alzheimer's with severe memory impairment. Wheelchair bound, uses lift with 2 people assist. Neuropathy. History of Any Multi-Drug Resistant Organisms: None Reported Past Surgical History: Back Surgery, Heart Catheterization, Hysterectomy Additional Past Surgical History / Comment(s): Thyroidectomy, bilateral cataract surgery. Past Anesthesia/Blood Transfusion Reactions: No Reported Reaction Additional Past Anesthesia/Blood Transfusion Reaction / Comment(s): CLAUSTROPHOBIA - Spouse states unsure about this. "Anesthesia affects her Alzheimer's." Past Psychological History: No Psychological Hx Reported Smoking Status: Former smoker Past Alcohol Use History: None Reported Additional Past Alcohol Use History / Comment(s): STARTED SMOKING AT AGE 20, SMOKED 1 PPD, QUIT IN 2001. Past Drug Use History: None Reported - Past Family History Mother Family Medical History: Coronary Artery Disease (CAD) Additional Family Medical History / Comment(s): HEART PROBLEMS. Father Family Medical History: Cancer Additional Family Medical History / Comment(s): LUNG CANCER. Medications and Allergies Home Medications Medication Instructions Recorded Confirmed Type Aspirin EC [Ecotrin Low Dose] 81 mg PO DAILY 04/26/17 11/21/23 History Nitroglycerin Sl Tabs [Nitrostat] 0.4 mg SL Q5M PRN 04/26/17 11/21/23 History Vit C/E/Zn/Coppr/Lutein/Zeaxan 1 cap PO BID 04/26/17 11/21/23 History [Preservision Areds 2 Softgel] Memantine [Namenda] 10 mg PO BID 03/21/18 11/21/23 History Calcium Carb/Magnesium Hydrox 1 - 2 tab PO DAILY PRN 10/29/22 11/21/23 History [Rolaids Ultra 1000-200 mg Chew] Donepezil [Aricept] 10 mg PO DAILY 10/29/22 11/21/23 History Isosorbide Mononitrate ER [Imdur] 15 mg PO HS 10/29/22 11/21/23 History Rosuvastatin [Crestor] 10 mg PO DAILY 10/29/22 11/21/23 History Magnesium Hydroxide [Milk of 7,200 mg PO Q2D PRN 11/21/22 11/21/23 History Magnesia Concentrate] Magnesium Oxide [Magox 400] 400 mg PO DAILY 11/21/22 11/21/23 History Na Phos,M-B/Na Phos,Di-Ba [Fleet 133 ml RECTAL DAILY PRN 11/21/22 11/21/23 History Adult] bisacodyL [Dulcolax] 10 mg RECTAL DAILY PRN 11/21/22 11/21/23 History Ammonium Lactate Cream [Lac-Hydrin 1 applic TOPICAL DAILY 09/27/23 11/21/23 History 12% Cream] Cetirizine HCl [Zyrtec] 10 mg PO DAILY 09/27/23 11/21/23 History Famotidine [Pepcid] 20 mg PO DAILY 09/27/23 11/21/23 History Ipratropium-Albuterol Nebulize 3 ml INHALATION RT-Q6H PRN 09/27/23 11/21/23 History [Duoneb 0.5 mg-3 mg/3 ml Soln] Levothyroxine Sodium [Synthroid] 100 mcg PO DAILY 09/27/23 11/21/23 History Levothyroxine Sodium [Synthroid] 125 mcg PO DAILY 09/27/23 11/21/23 History Oyster-Calcium/Vitamin D3 1 tab PO DAILY 09/27/23 11/21/23 History 500mg/200unit Tab Sennosides [Senokot] 17.2 mg PO BID 09/27/23 11/21/23 History polyethylene glycoL 3350 [Miralax] 17 gm PO DAILY 09/27/23 11/21/23 History Acetaminophen Tab [Tylenol Tab] 500 mg PO Q6H PRN #30 tablet 10/01/23 11/21/23 Rx Allergies Allergy/AdvReac Type Severity Reaction Status Date / Time cat dander Allergy Unknown Verified 11/21/23 07:36 dog dander Allergy Unknown Verified 11/21/23 07:36 estrella Allergy Unknown Verified 11/21/23 07:36 perfume Allergy Anaphylaxis Verified 11/21/23 07:36 pollen extracts Allergy Unknown Verified 11/21/23 07:36 wool Allergy Unknown Verified 11/21/23 07:36 dust Allergy Unknown Uncoded 11/21/23 07:36 smoke Allergy Unknown Uncoded 11/21/23 07:36 Surgical - Exam - General well developed, well nourished, no distress - Respiratory normal respiratory effort - Abdomen Abdomen: soft, non tender, no guarding, no rigid, no rebound - Psychiatric oriented to time, oriented to person, oriented to place, speech is normal, memory intact Results - Imaging Abdominal x-ray: image reviewed CT scan - abdomen: report reviewed, image reviewed Assessment and Plan (1) Calculus of ureter Current Visit: No Status: Acute Code(s): N20.1 - CALCULUS OF URETER SNOMED Code(s): 64229381 Plan: Cystoscopy, right ureteral stent removal, right ureteroscopy with laser lithotripsy and possible stone basketing. Risks include anesthesia, persistent infection, ureteral injury, and inability to successfully remove the calculus.
[2023-11-21] MEDS ORDERED: fentaNYL (PF) 50 MCG/ML 2 ML AMP ONE (08:55)
[2023-11-21] MEDS ORDERED: LIDOCAINE 1% INJ 10MG/ML (20 ML MDV) ONE (08:55)
[2023-11-21] MEDS ORDERED: ePHEDrine 50 MG/ML 1 ML VIAL ONE (08:55)
[2023-11-21] MEDS ORDERED: PROPOFOL 10 MG/ML 20 ML VIAL IV ONE (08:55)
--- NOTE | 2023-11-21 09:15 | XR ---
EXAMINATION TYPE: XR KUB DATE OF EXAM: 11/21/2023 Comparison: None Clinical History: 78-year-old female preoperative evaluation, Right kidney stone Findings: Right-sided ureteral stent. No definite suspicious calcification is radiographically apparent. Partia lly visualized left hip hemiarthroplasty. No significant stool burden. Nonobstructive bowel gas patte rn. Impression: Right-sided ureteral stent. Suspicious calcification not clearly identified radiographically.
[2023-11-21 10:13] VITALS: TEMP 98.4
--- NOTE | 2023-11-21 10:22 | P.OP ---
Date of Procedure: 11/21/23 Preoperative Diagnosis: Right ureteral calculus Postoperative Diagnosis: Same Procedure(s) Performed: Cystoscopy, right ureteral stent removal, right ureteroscopy with stone basketing Anesthesia: MITALI Surgeon: Matthew Tsai Estimated Blood Loss (ml): 0 IV fluids (ml): 300 Pathology: other (Right ureteral calculus fragments, sent for chemical analysis) Condition: stable Disposition: PACU Indications for Procedure: This is a 78-year-old female with history of advanced dementia presented to the hospital in early September with increased confusion worsened from baseline. She underwent a CT scan of the abdomen and pelvis that showed evidence of a 5 mm r ight distal ureteral calculus. She was febrile and underwent placement of a ureteral stent. Urine culture at that time showed a Proteus UTI, also seen on a recent urine culture. She is currently receiving antibiotics and is asymptomatic. Operative Findings: Calcifications adherent to right distal ureteral stent. Several right ureteral calculi seen. All soft, consistent with struvite composition. Description of Procedure: The patient was taken to the operating room and placed in the dorsolithotomy position, with legs supported in Larry stirrups. The external genitalia was prepped and draped sterilely. The 30 lens was used to introduce the 21-Czech Zhao cystoscopic sheath through the urethra and into the bladder under direct vision. The bladder was examined in its entirety. The bladder was unremarkable. Calcifications were seen adherent to the distal end of the right ureteral stent, which was grasped with grasping forceps and removed along with the cystoscope. The Zhao semirigid ureteroscope was advanced into the bladder, and the right ureteral orifice was cannulated. The ureteroscope was slowly advanced under direct vision. 2 calculi were seen within the right mid ureter, measuring 4-6 millimeter in size. Both had a soft appearance, consistent with struvite composition. A 1.9-Czech 0 tip nitinol basket was used to loosely grasp the calculi and remove them along with the ureteroscope. Final inspection of the ureter showed no residual calculi, and no evidence of ureteral trauma. Multiple calculi were seen within the bladder, presumably those broken away from the stent. The bladder was irrigated and drained until there were no residual calculi within the bladder. At this time, the bladder was emptied and the cystoscope removed. The patient tolerated the procedure well and was taken to the recovery room in stable condition. MUSIC ROCKS Report: Procedure Acuity: Elective Stone Size and Location: 6 mm, right mid ureter Ureteral Dilation: No Ureteral Access Sheath Used: No Stone Sent for Analysis: Yes All Stones/Fragments Were Removed with a Basket: Yes Complications: No Preoperative Antibiotics Given: Yes Stent Placed: No Discharge Medications: Ceftin
[2023-11-21 11:02] VITALS: RESP 16
[2023-11-21 11:51] VITALS: BP 126/83; PULSE 81
== END 2023-11-21 11:30 ==
LOC: OR 06:50
PROVIDERS: ATTEND Urology
DX: N20.1 Calculus of ureter (principal); I10 Essential (primary) hypertension; G30.9 Alzheimer's disease, unspecified; F02.C0 Dementia in other diseases classified elsewhere, severe, without behavioral disturbance, psychotic disturbance, mood disturbance, and anxiety; E78.5 Hyperlipidemia, unspecified; I25.10 Atherosclerotic heart disease of native coronary artery without angina pectoris; K21.9 Gastro-esophageal reflux disease without esophagitis; M19.90 Unspecified osteoarthritis, unspecified site; M79.7 Fibromyalgia; Z79.890 Hormone replacement therapy; Z87.891 Personal history of nicotine dependence; Z99.3 Dependence on wheelchair; Z79.899 Other long term (current) drug therapy
CPT/HCPCS: 52352; 82365; 74018; J1100; J0690; J2405; J2001; J3010; J1580; J2704